=== PATIENT | female | born 1985 | race Caucasian/White ===

== ENCOUNTER 2020-11-25 14:09 | Emergency (ER) | payer OTHER, SELFPAY ==
[2020-11-25 14:22] VITALS: BP 91/37; PULSE 66; RESP 14; TEMP 36.3; O2SAT 96; BMI 21.0
--- NOTE | 2020-11-25 14:29 | XR_ITS ---
EXAMINATION: XR CHEST CLINICAL INFORMATION: Chest pain COMPARISON: Previous chest x-ray most recent December 2019 TECHNIQUE: Frontal view of the chest was obtained. FINDINGS: The cardiac and mediastinal contours are normal. The lungs are clear. There is no pleural effusion or pneumothorax. There are degenerative changes of the spine. XR/XR chest 1V IMPRESSION: Unremarkable examination.
--- NOTE | 2020-11-25 14:29 | ECG_ITS ---
Test Reason : CHEST PAIN Blood Pressure : / mmHG Vent. Rate : 060 BPM Atrial Rate : 060 BPM P-R Int : 152 ms QRS Dur : 086 ms QT Int : 462 ms P-R-T Axes : 061 081 063 degrees QTc Int : 462 ms Normal sinus rhythm Normal ECG When compared with ECG of 08-JAN-2020 10:40, Vent. rate has decreased BY 34 BPM Referred By: Mya Sapp Electronically Signed By:Singh Butler
--- NOTE | 2020-11-25 14:29 | ED.CHESTPAIN ---
HPI - Chest Pain General Chief Complaint: General Medical Stated Complaint: drug use Time Seen by Provider: 11/25/20 14:29 Source: patient and EMS Mode of arrival: EMS Limitations: no limitations History of Present Illness HPI narrative: 35 yo female became sleepy after using heroin with , no SI, has narcan at home c/o chest wall pain and cold / cough, no narcan needed easily woken complaint: chest discomfort Onset (ago): day(s) (few) Timing of current episode: episodic Prior episodes: No Onset: other (cough) Pain radiation: none Severity: mild Quality: tightness Relieving factors: nothing Exacerbating factors: other (cough) Context: recent illness Treatment prior to arrival: none Related Data Allergies Allergy/AdvReac Type Severity Reaction Status Date / Time codeine [CODEINE] Allergy Intermediate RASH Verified 11/25/20 14:32 quetiapine [From SEROQUEL] Allergy Intermediate RESTLESS Verified 11/25/20 14:32 LEG SYNDROME Review of Systems Review of Systems: Constitutional : No Fever, No Chills ENT/Mouth : No sore throat, No Rhinorrhea, No Swallowing Difficulty Eyes: No Eye Pain, No Swelling, No Redness Cardiovascular : No Chest Pain, positive SOB, No Orthopnea, noEdema Respiratory : pos Cough, No Sputum, No Wheezing, positive dyspnea Gastrointestinal : No Nausea, No Vomiting, No Diarrhea, No abdominal Pain, No Hematochezia, No Melena Genitourinary : No Dysuria, No Urinary Frequency, No Hematuria Musculoskeletal : No joint pain, No Myalgias Skin : No Skin Lesions, No rash Neuro : No Weakness, No Numbness, No Dizziness, No Headache Psych : No Anxiety/Panic, No Depression All other systems reviewed and are negative [facility] Past Medical History Attestation statement: The following information was validated with the patient. Medical History Asthma Hepatitis C Surgical History H/O: hysterectomy Social History Social History (Updated 11/25/20 @ 14:35 by Mya Sapp DO) Alcohol intake: never Smoking Status: Current every day smoker Smoked in Last 30 Days: Yes Use of substances other than those prescribed or required for medical reasons: Yes Substance Use Type: Heroin Advance Directives: No Advance Directives Information Provided: Yes Physical Exam Vital Signs: Vital Signs: Last Vital Signs Temp 97.3 F 11/25/20 14:22 Pulse 59 11/25/20 15:10 Resp 12 11/25/20 15:10 BP 92/40 L 11/25/20 15:10 Pulse Ox 96 11/25/20 15:10 Body Mass Index 21.0 Appearance: Alert. Oriented X3. No acute distress. Eyes: Pupils equal, round and reactive to light. ENT: Pharynx normal. Neck: Normal inspection. Neck supple. CVS: Normal heart rate and rhythm. Pulses normal. Respiratory: No respiratory distress. Breath sounds normal. Abdomen: Soft and nontender. Skin: Skin warm and dry. Normal skin color. Normal skin turgor. Extremities: No lower extremity edema. No calf ttp Neuro: Oriented X 3. No motor deficit. No sensory deficit. Course Course Course Narrative: easily woken no need for narcan carries narcan at home MDM - Chest Pain MDM Narrative Medical decision making narrative: 35 yo female with asthma used heroin no SI just recreational here with URI symptoms - at this time will obtain CXR, COVID swab, doubt ACS/PE pain is only when she coughs Lab Data Labs: Lab Results 11/25/20 Range/Units Unknown Coronavirus (PCR) NEGATIVE (Negative) Influenza Type A (PCR) NEGATIVE (Negative) Influenza Type B (PCR) NEGATIVE (Negative) RSV RNA Qual (PCR) NEGATIVE (Negative) Discharge Plan Discharge Clinical Impression: Opiate abuse, continuous Patient Disposition: Home, Self-Care Instructions: Opioid Use Disorder (ED) Additional Instructions: return to ED for any worsening symptoms or concerns stay with a responsible adult tonight
[2020-11-25 15:10] VITALS: BP 92/40; PULSE 59; RESP 12; O2SAT 96
[2020-11-25 15:41] LABS: Influenza A PCR NEGATIVE (Negative); Influenza B PCR NEGATIVE (Negative); Resp Syncy Virus RNA Qual PCR NEGATIVE (Negative); SARS COV2 PCR INHOUSE NEGATIVE (Negative)
[2020-11-25 16:57] VITALS: BP 88/40; PULSE 60; RESP 16; O2SAT 97
--- NOTE | 2020-11-25 16:59 | PC.NURSE ---
patient witnessed walking out of ED w/ steady gait, this RN approached patient to stay, pt states she is leaving, physician aware
== END 2020-11-25 17:01 | disposition left against medical advice (07) ==
PROVIDERS: Emergency Provider Emergency Medicine; PCP Family Medicine
DX: F11.10 Opioid abuse, uncomplicated (principal); R05 Cough; R07.9 Chest pain, unspecified; F17.200 Nicotine dependence, unspecified, uncomplicated; Z71.6 Tobacco abuse counseling; Z20.828 Contact with and (suspected) exposure to other viral communicable diseases
CPT/HCPCS: 0241U; 36415; 71045; 93005; 99283; 99284

== ENCOUNTER 2020-12-22 16:48 | Emergency (ER) | payer OTHER, SELFPAY ==
[2020-12-22 17:24] VITALS: BP 110/80; PULSE 105; PULSE 110; RESP 16; TEMP 36.6; O2SAT 97; BMI 20.3
--- NOTE | 2020-12-22 17:29 | XR_ITS ---
Examination: XR forearm LT 2V, XR hand wrist LT Indication: cellulitis? Osteomyelitis? Comparison: No pertinent prior studies are currently available for comparison. Technique: 2 views of the left forearm and 3 views of the left hand Findings: Bones are normal anatomic alignment. I do not appreciate any acute fracture or dislocation. No bony destructive lesions. No periosteal reaction. No acute fracture or dislocation. There is diffuse soft tissue swelling about the dorsal hand and wrist but no underlying radiopaque foreign body or soft tissue gas. XR/XR hand wrist LT Impression: Soft tissue swelling about the hand and wrist but no underlying bony abnormality or radiopaque foreign body.
--- NOTE | 2020-12-22 17:32 | XR_ITS ---
Examination: XR forearm LT 2V, XR hand wrist LT Indication: cellulitis? Osteomyelitis? Comparison: No pertinent prior studies are currently available for comparison. Technique: 2 views of the left forearm and 3 views of the left hand Findings: Bones are normal anatomic alignment. I do not appreciate any acute fracture or dislocation. No bony destructive lesions. No periosteal reaction. No acute fracture or dislocation. There is diffuse soft tissue swelling about the dorsal hand and wrist but no underlying radiopaque foreign body or soft tissue gas. XR/XR forearm LT 2V Impression: Soft tissue swelling about the hand and wrist but no underlying bony abnormality or radiopaque foreign body.
--- NOTE | 2020-12-22 17:33 | ED_ITS ---
HPI - Extremity Problem General Chief complaint: Extremity Problem <GREYSON Walsh - Last Filed: 12/22/20 17:34> Stated complaint: PHLEBITIS LT HAND <GREYSON Walsh Last Filed: 12/22/20 17:34> Time Seen by Provider: 12/22/20 17:29 <GREYSON Walsh Last Filed: 12/22/20 17:34> Source: patient <GREYSON House - Last Filed: 12/22/20 19:28> Mode of arrival: ambulatory <GREYSON House - Last Filed: 12/22/20 19:28> Limitations: no limitations <GREYSON House Last Filed: 12/22/20 19:28> History of Present Illness HPI Narrative: 35 y/o female with history of active IVDA who presenting with left dorsal hand swelling, redness and pain for the last 4 days. She last injected to the area 4 days ago. She reports low grade fevers at home. She has been injecting more due to the pain. She denies upper arm pain, chest pain, SOB, N/V. <GRESYON House - Last Filed: 12/22/20 19:28> MD Complaint: extremity pain and extremity swelling <GREYSON House Last Filed: 12/22/20 19:28> Onset (ago): day(s) (4) <GREYSON House - Last Filed: 12/22/20 19:28> Pain Consistency: constant <GREYSON House Last Filed: 12/22/20 19:28> Location: left and upper extremity <GREYSON House Last Filed: 12/22/20 19:28> Severity scale (1-10): 10 <GREYSON House Last Filed: 12/22/20 19:28> Quality: burning, aching and constant <GREYSON House Last Filed: 12/22/20 19:28> Radiation: none <GREYSON House Last Filed: 12/22/20 19:28> Relieving factors: cold therapy and elevation <GREYSON House Last Filed: 12/22/20 19:28> Exacerbating factors: range of motion and palpation <GREYSON House - Last Filed: 12/22/20 19:28> Associated symptoms: denies other symptoms <GREYSON House - Last Filed: 12/22/20 19:28> Context: other (IVDA) <GREYSON House - Last Filed: 12/22/20 19:28> Related Data Home medications: Previous Rx's Medication Instructions Recorded cephalexin 500 mg PO TID 10 Days #30 cap 12/22/20 doxycycline monohydrate 100 mg PO BID #14 cap 12/22/20 <GREYSON Walsh - Last Filed: 12/22/20 17:34> Allergies/Adverse reactions: Allergies Allergy/AdvReac Type Severity Reaction Status Date / Time codeine [CODEINE] Allergy Intermediate RASH Verified 11/25/20 14:32 quetiapine [From SEROQUEL] Allergy Intermediate RESTLESS Verified 11/25/20 14:32 LEG SYNDROME <GREYSON Walsh - Last Filed: 12/22/20 17:34> Review of Systems Review of Systems: Constitutional: + Fever (low grade), No Chills ENT/Mouth: No sore throat, No Rhinorrhea, No Swallowing Difficulty Cardiovascular: No Chest Pain, No SOB, No Orthopnea, + Edema (left hand) Respiratory: No Cough, No Sputum, No Wheezing, No dyspnea Gastrointestinal: No Nausea, No Vomiting, No Diarrhea, No abdominal Pain Musculoskeletal: No joint pain, No Myalgias Skin: + Skin Lesions, No rash Neuro: + Weakness (left hand ue to pain), No Numbness, No Dizziness, No Headache Psych: + Anxiety/Panic, + Depression, No SI Heme/Lymph: No Bruising, No Lymphadenopathy Endocrine: No Polyuria, No Polydipsia <GREYSON House - Last Filed: 12/22/20 19:28> [facility] Past Medical History Attestation statement: The following information was validated with the patient. <GREYSON House - Last Filed: 12/22/20 19:28> Medical History: Medical History Asthma Hepatitis C <GREYSON Walsh Last Filed: 12/22/20 17:34> Surgical History: Surgical History H/O: hysterectomy <GREYSON Walsh - Last Filed: 12/22/20 17:34> Social History Social History: Social History (Updated 11/25/20 @ 14:35 by Mya Sapp DO) Alcohol intake: never Smoking Status: Current every day smoker Substance Use Type: Heroin Advance Directives: No Advance Directives Information Provided: Yes <GREYSON Walsh - Last Filed: 12/22/20 17:34> Physical Exam Vital Signs: Vital Signs: Last Vital Signs Temp 98 F 12/22/20 17:24 Pulse 105 H 12/22/20 17:24 Resp 16 12/22/20 17:24 Pulse Ox 97 12/22/20 17:24 Body Mass Index 20.3 <GREYSON Walsh - Last Filed: 12/22/20 17:34> Vital Signs: Last Vital Signs Temp 98 F 12/22/20 17:24 Pulse 105 H 12/22/20 17:24 Resp 16 12/22/20 17:24 Pulse Ox 97 12/22/20 17:24 Body Mass Index 20.3 Appearance: Alert. Oriented X3. No acute distress. HEENT: normal inspection CVS: Normal heart rate and rhythm. Pulses normal. Respiratory: No respiratory distress. Skin: Skin warm and dry. Normal skin color. Normal skin turgor. No rashes. Extremities: left dorsal hand with erythema and diffuse tenderness, localized to area over carpals, no extension to wrist. mild finger swelling as well, NV intact distally, 2+ radial pulse. areas of prior injection sites noted Neuro: Oriented X 3. No motor deficit. No sensory deficit. Left hand grasp is weak due to pain <GREYSON House - Last Filed: 12/22/20 19:28> Course Course Course Narrative: 35 yold female presents to the ED for left hand swelling and redness after IV drug use. Rapid medical screening will be done. History, physical exam, and decision making will be done by ED provider. <GREYSON Walsh - Last Filed: 12/22/20 17:34> left hand cellulitis - labs show WBC 12.7. No fevers here. XR are unremarkable. US is pending to r/o DVT. Ordered Keflex and Doxycycline now, high risk for MRSA. <GREYSON House - Last Filed: 12/22/20 19:28> Reevaluation(s) Reevaluation #1: Patient unwilling to stay for ultrasound. She is wanting to leave against medical advise. Discussed medical complications and seriousness of her infection and addition. Declining to speak with a assistant womens volleyball coach. Encouraged to come back to the ER in 2 days for a re-evaluation. Abx sent to her pharmacy. Leaving AMA, understands the risks. <GREYSON House - Last Filed: 12/22/20 19:28> MDM - Extremity (Nontraumatic) Lab Data Result diagrams: : 12/22/20 17:41 12/22/20 17:41 <GREYSON Walsh - Last Filed: 12/22/20 17:34> Labs: Lab Results 12/22/20 12/22/20 12/22/20 Range/Units 17:41 17:41 17:41 WBC 12.7 H (4.8-10.8) X10*3/uL RBC 4.62 (4.20-5.50) X10*6/uL Hgb 13.2 (12.0-16.0) g/dl Hct 40.0 (37-47) % MCV 86.6 (80-98) fL MCH 28.6 (27.0-33.0) pg MCHC 33.0 (31.0-35.0) g/dl RDW 13.3 (11.0-16.0) % Plt Count 222 (160-400) X10*3/uL MPV Not Reportable Immature Gran % (Auto) 0.3 (0.0-0.4) % Neut % (Auto) 80.0 H (45-73) % Lymph % (Auto) 12.9 L (20-40) % [place] % (Auto) 5.4 (2-11) % Eos % (Auto) 1.1 (0-4) % Baso % (Auto) 0.3 (0-2) % Lymph # (Auto) 1.6 (1.2-4.9) X10*3/uL [place] # (Auto) 0.7 (0.1-1.2) X10*3/uL Eos # (Auto) 0.1 (0.0-0.4) X10*3/uL Baso # (Auto) 0.0 (0.0-0.2) X10*3/uL Abs Immat Gran (auto) 0.04 H (0.00-0.03) X10*3/uL Absolute Neuts (auto) 10.1 H (2.0-8.3) X10*3/uL Absolute Nucleated RBC 0.000 (0.0-0.012) X10*3/uL Nucleated RBC % (auto) 0.0 (0.0-0.2) /100WBC Smear Tech's Comments VERIFIED PT 13.0 (10.8-13.0) SEC INR 1.1 (0.9-1.1) APTT 27.7 (24.1-38.0) SEC Sodium 137 (135-145) mmol/L Potassium 4.3 (3.3-5.1) mmol/L Chloride 101 (96-108) mmol/L Carbon Dioxide 27 (22-29) mmol/L Anion Gap 13 (12-20) BUN 25 H (9-16) mg/dL Creatinine 0.70 (0.5-1.4) mg/dL Estim Creat Clear Calc 90.6 Estimated GFR > 60 Random Glucose 75 (60-115) mg/dL Lactic Acid (0.5-2.0) mmol/L Calcium 8.6 (8.4-10.2) mg/dL Total Bilirubin 0.2 (0.0-1.0) mg/dL AST 31 (5-31) U/L ALT 18 (0-31) U/L Alkaline Phosphatase 73 (39-117) U/L Total Protein 7.5 (6.5-8.0) g/dL Albumin 4.1 (3.5-5.0) g/dL 12/22/20 Range/Units 17:41 WBC (4.8-10.8) X10*3/uL RBC (4.20-5.50) X10*6/uL Hgb (12.0-16.0) g/dl Hct (37-47) % MCV (80-98) fL MCH (27.0-33.0) pg MCHC (31.0-35.0) g/dl RDW (11.0-16.0) % Plt Count (160-400) X10*3/uL MPV Immature Gran % (Auto) (0.0-0.4) % Neut % (Auto) (45-73) % Lymph % (Auto) (20-40) % [place] % (Auto) (2-11) % Eos % (Auto) (0-4) % Baso % (Auto) (0-2) % Lymph # (Auto) (1.2-4.9) X10*3/uL [place] # (Auto) (0.1-1.2) X10*3/uL Eos # (Auto) (0.0-0.4) X10*3/uL Baso # (Auto) (0.0-0.2) X10*3/uL Abs Immat Gran (auto) (0.00-0.03) X10*3/uL Absolute Neuts (auto) (2.0-8.3) X10*3/uL Absolute Nucleated RBC (0.0-0.012) X10*3/uL Nucleated RBC % (auto) (0.0-0.2) /100WBC Smear Tech's Comments PT (10.8-13.0) SEC INR (0.9-1.1) APTT (24.1-38.0) SEC Sodium (135-145) mmol/L Potassium (3.3-5.1) mmol/L Chloride (96-108) mmol/L Carbon Dioxide (22-29) mmol/L Anion Gap (12-20) BUN (9-16) mg/dL Creatinine (0.5-1.4) mg/dL Estim Creat Clear Calc Estimated GFR Random Glucose (60-115) mg/dL Lactic Acid 0.5 (0.5-2.0) mmol/L Calcium (8.4-10.2) mg/dL Total Bilirubin (0.0-1.0) mg/dL AST (5-31) U/L ALT (0-31) U/L Alkaline Phosphatase (39-117) U/L Total Protein (6.5-8.0) g/dL Albumin (3.5-5.0) g/dL <GREYSON Walsh - Last Filed: 12/22/20 17:34> Lab Results 12/22/20 12/22/20 12/22/20 Range/Units 17:41 17:41 17:41 WBC 12.7 H (4.8-10.8) X10*3/uL RBC 4.62 (4.20-5.50) X10*6/uL Hgb 13.2 (12.0-16.0) g/dl Hct 40.0 (37-47) % MCV 86.6 (80-98) fL MCH 28.6 (27.0-33.0) pg MCHC 33.0 (31.0-35.0) g/dl RDW 13.3 (11.0-16.0) % Plt Count 222 (160-400) X10*3/uL MPV Not Reportable Immature Gran % (Auto) 0.3 (0.0-0.4) % Neut % (Auto) 80.0 H (45-73) % Lymph % (Auto) 12.9 L (20-40) % [place] % (Auto) 5.4 (2-11) % Eos % (Auto) 1.1 (0-4) % Baso % (Auto) 0.3 (0-2) % Lymph # (Auto) 1.6 (1.2-4.9) X10*3/uL [place] # (Auto) 0.7 (0.1-1.2) X10*3/uL Eos # (Auto) 0.1 (0.0-0.4) X10*3/uL Baso # (Auto) 0.0 (0.0-0.2) X10*3/uL Abs Immat Gran (auto) 0.04 H (0.00-0.03) X10*3/uL Absolute Neuts (auto) 10.1 H (2.0-8.3) X10*3/uL Absolute Nucleated RBC 0.000 (0.0-0.012) X10*3/uL Nucleated RBC % (auto) 0.0 (0.0-0.2) /100WBC Smear Tech's Comments VERIFIED PT 13.0 (10.8-13.0) SEC INR 1.1 (0.9-1.1) APTT 27.7 (24.1-38.0) SEC Sodium 137 (135-145) mmol/L Potassium 4.3 (3.3-5.1) mmol/L Chloride 101 (96-108) mmol/L Carbon Dioxide 27 (22-29) mmol/L Anion Gap 13 (12-20) BUN 25 H (9-16) mg/dL Creatinine 0.70 (0.5-1.4) mg/dL Estim Creat Clear Calc 90.6 Estimated GFR > 60 Random Glucose 75 (60-115) mg/dL Lactic Acid (0.5-2.0) mmol/L Calcium 8.6 (8.4-10.2) mg/dL Total Bilirubin 0.2 (0.0-1.0) mg/dL AST 31 (5-31) U/L ALT 18 (0-31) U/L Alkaline Phosphatase 73 (39-117) U/L Total Protein 7.5 (6.5-8.0) g/dL Albumin 4.1 (3.5-5.0) g/dL 12/22/20 Range/Units 17:41 WBC (4.8-10.8) X10*3/uL RBC (4.20-5.50) X10*6/uL Hgb (12.0-16.0) g/dl Hct (37-47) % MCV (80-98) fL MCH (27.0-33.0) pg MCHC (31.0-35.0) g/dl RDW (11.0-16.0) % Plt Count (160-400) X10*3/uL MPV Immature Gran % (Auto) (0.0-0.4) % Neut % (Auto) (45-73) % Lymph % (Auto) (20-40) % [place] % (Auto) (2-11) % Eos % (Auto) (0-4) % Baso % (Auto) (0-2) % Lymph # (Auto) (1.2-4.9) X10*3/uL [place] # (Auto) (0.1-1.2) X10*3/uL Eos # (Auto) (0.0-0.4) X10*3/uL Baso # (Auto) (0.0-0.2) X10*3/uL Abs Immat Gran (auto) (0.00-0.03) X10*3/uL Absolute Neuts (auto) (2.0-8.3) X10*3/uL Absolute Nucleated RBC (0.0-0.012) X10*3/uL Nucleated RBC % (auto) (0.0-0.2) /100WBC Smear Tech's Comments PT (10.8-13.0) SEC INR (0.9-1.1) APTT (24.1-38.0) SEC Sodium (135-145) mmol/L Potassium (3.3-5.1) mmol/L Chloride (96-108) mmol/L Carbon Dioxide (22-29) mmol/L Anion Gap (12-20) BUN (9-16) mg/dL Creatinine (0.5-1.4) mg/dL Estim Creat Clear Calc Estimated GFR Random Glucose (60-115) mg/dL Lactic Acid 0.5 (0.5-2.0) mmol/L Calcium (8.4-10.2) mg/dL Total Bilirubin (0.0-1.0) mg/dL AST (5-31) U/L ALT (0-31) U/L Alkaline Phosphatase (39-117) U/L Total Protein (6.5-8.0) g/dL Albumin (3.5-5.0) g/dL <GREYSON House - Last Filed: 12/22/20 19:28> Discharge Plan Discharge Clinical Impression: Cellulitis Qualifiers: Site of cellulitis: extremity Site of cellulitis of extremity: upper extremity Laterality: left Qualified Code(s): L03.114 - Cellulitis of left upper limb <GREYSON Walsh - Last Filed: 12/22/20 17:34> Patient Disposition: Left Against Medical Advice <GREYSON Walsh - Last Filed: 12/22/20 17:34> Instructions: Cellulitis (ED) <GREYSON Walsh - Last Filed: 12/22/20 17:34> Additional Instructions: You have an infection of your skin due to IV drug use. It is recommended to you stay in the hospital for ultrasound to look for blood clot, however you are leaving against medical advise. You are at risk for due to your condition. Do NOT inject IV DRUGS. IT CAN KILL YOU. Take the prescribed antibiotics as directed. Recommend coming back to the ER in 2 days to reassess the infection. Recommend detox. If you have worsening pain, swelling, redness or develop fevers come back to the ER for further evaluation. <GREYSON Walsh - Last Filed: 12/22/20 17:34> Prescriptions: New doxycycline monohydrate 100 mg capsule 100 mg PO BID Qty: 14 RF: 0 cephalexin 500 mg capsule 500 mg PO TID 10 Days Qty: 30 RF: 0 <GREYSON Walsh - Last Filed: 12/22/20 17:34>
[2020-12-22 17:54] LABS: Basophils Percent Auto 0.3 % (0-2); Eosinophils Absolute Auto 0.1 X10*3/uL (0.0-0.4); Eosinophils Percent Auto 1.1 % (0-4); Hemoglobin 13.2 g/dl (12.0-16.0); Lymphocytes Absolute Auto 1.6 X10*3/uL (1.2-4.9); MANUAL DIFF FLAG SCAN; Mean Corpuscular Hemoglobin 28.6 pg (27.0-33.0); Monocytes Absolute Auto 0.7 X10*3/uL (0.1-1.2); PLT CLUMP 1; Red Blood Count 4.62 X10*6/uL (4.20-5.50); SCAN SMEAR FLAG 1
[2020-12-22 17:56] LABS: Imm Gran Abs Auto 0.04 X10*3/uL (0.00-0.03); Imm Gran Pct Auto 0.3 % (0.0-0.4); Lymphocytes Percent Auto 12.9 % (20-40); Mean Corpuscular Volume 86.6 fL (80-98); Monocytes Percent Auto 5.4 % (2-11); Neutrophils Absolute Auto 10.1 X10*3/uL (2.0-8.3); Red Cell Distribution Width 13.3 % (11.0-16.0); White Blood Count 12.7 X10*3/uL (4.8-10.8)
[2020-12-22 18:00] LABS: INTERNATIONAL NORM RATIO 1.1 (0.9-1.1)
[2020-12-22 18:02] LABS: Partial Thromboplastin Time 27.7 SEC (24.1-38.0)
[2020-12-22 18:16] LABS: Platelet Count 222 X10*3/uL (160-400)
[2020-12-22 18:17] LABS: SLIDE REVIEW VERIFIED
[2020-12-22 18:18] LABS: Lactic Acid 0.5 mmol/L (0.5-2.0)
[2020-12-22 18:26] LABS: Alanine Aminotransferase 18 U/L (0-31); Albumin Level 4.1 g/dL (3.5-5.0); Alkaline Phosphatase 73 U/L (39-117); Anion Gap 13 (12-20); Aspartate Amino Transferase 31 U/L (5-31); Bilirubin Total 0.2 mg/dL (0.0-1.0); Blood Urea Nitrogen 25 mg/dL (9-16); Calcium 8.6 mg/dL (8.4-10.2); Carbon Dioxide 27 mmol/L (22-29); Chloride 101 mmol/L (96-108); Creatinine Clr Calc Pharmacy 90.6; Estimated Glomerular Filt Rate > 60; Glucose Random 75 mg/dL (60-115); Potassium 4.3 mmol/L (3.3-5.1); Sodium 137 mmol/L (135-145); Total Protein 7.5 g/dL (6.5-8.0)
[2020-12-22] MEDS: Ketorolac Tromethamine 30 MG/ML VIAL IM (19:13)
[2020-12-22] MEDS: cephALEXin 500 MG CAPSULE PO (19:14)
--- NOTE | 2020-12-22 19:27 | PC.NURSE ---
PT REFUSING ULTRASOUND. RISKS AND BENIFITS EXPLAINED. PT WANTING TO SIGN OUT AMA. PROVIDER AWARE.
[2020-12-22 19:33] VITALS: BP 132/71; PULSE 94; RESP 16; TEMP 36.4; O2SAT 98
== END 2020-12-22 19:36 | disposition left against medical advice (07) ==
PROVIDERS: Physician Assistant; Emergency Provider Emergency Medicine
DX: L03.114 Cellulitis of left upper limb (principal); M79.642 Pain in left hand; F19.10 Other psychoactive substance abuse, uncomplicated; F17.200 Nicotine dependence, unspecified, uncomplicated
CPT/HCPCS: 36415; 73090; 73110; 73130; 80053; 83605; 85025; 85610; 85730; 87040; 96372; 99284; J1885

== ENCOUNTER 2021-07-03 04:17 | Emergency (ER) | payer OTHER, SELFPAY ==
[2021-07-03 04:20] VITALS: BP 100/59; PULSE 69; RESP 15; TEMP 36.9; O2SAT 98; BMI 23.9
[2021-07-03 04:34] VITALS: BP 100/59; PULSE 69; RESP 15; TEMP 36.9; O2SAT 98
[2021-07-03 04:50] LABS: Glucose Urine UA NEG (NEG); Leukocyte Esterase Urine NEG (NEG); Nitrite Urine NEG (NEG); UACC Culture Trigger NO; Urine Blood NEG (NEG); Urine Ketones NEG (NEG); Urine Protein 1+ MG/DL (NEG-TRACE)
[2021-07-03 04:53] LABS: Appearance Urine HAZY; Color Urine DARK YELLOW
--- NOTE | 2021-07-03 04:58 | PC.NURSE ---
[facility] referral completed via smart sheet, called and spoke with Emma, confirmed receipt of referral.
[2021-07-03 05:02] LABS: COVID-19 Test Negative (Negative)
[2021-07-03 05:12] LABS: Amorphous Sediment Urine 3+ /LPF; Amphetamine Screen Urine Not Detected (Not Detect); Barbiturates, Urine Not Detected (Not Detect); Benzodiazepines Screen Urine Not Detected (Not Detect); Cannabinoid Screen Urine Not Detected (Not Detect); Cocaine Screen Urine POSITIVE (Not Detect); Fentanyl, urine POSITIVE (Not Detect); Mucus Urine 4+ /LPF; Opiate Screen Urine POSITIVE (Not Detect); Phencyclidine Screen Urine Not Detected (Not Detect); RBC Urine 0-2 /HPF (0); Squamous Epithelial Cell Urine 1+ /LPF; WBC Urine 0 /HPF (0-4)
[2021-07-03 05:13] LABS: UPreg QC Valid YES; Urine Pregnancy NEGATIVE (NEGATIVE)
--- NOTE | 2021-07-03 06:17 | PC.NURSE ---
Patient slept well, not seen by provider yet, [facility] referral completed, patient will be seen in the morning, no distress observed/reported, patient has multiple red julien on her body perhaps from IV use, VSS, Patient is on Methadon and uses [facility] clinic, attempted to reach, clinic opens at 0800 on Monday, will continue to monitor.
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
--- NOTE | 2021-07-03 06:57 | PC.NURSE ---
patient appears to continue to rest at present, respirations even and unlabored.
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
== END 2021-07-03 14:06 | disposition home or self-care (01) ==
PROVIDERS: Emergency Provider Emergency Medicine
DX: F32.9 Major depressive disorder, single episode, unspecified (principal); F41.9 Anxiety disorder, unspecified; Z20.822 Contact with and (suspected) exposure to COVID-19; F11.20 Opioid dependence, uncomplicated; Z72.89 Other problems related to lifestyle; Z63.0 Problems in relationship with spouse or partner; Z79.899 Other long term (current) drug therapy
CPT/HCPCS: 36415; 80307; 81001; 81025; 87635; 99284

== ENCOUNTER 2021-09-24 00:41 | Emergency (ER) | payer OTHER, SELFPAY ==
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
[2021-09-24 01:02] VITALS: BP 170/90; PULSE 106
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
== END 2021-09-24 01:02 | disposition left against medical advice (07) ==
PROVIDERS: Emergency Provider Internal Medicine; PCP Family Medicine
DX: S00.86XA Insect bite (nonvenomous) of other part of head, initial encounter (principal); W57.XXXA Bitten or stung by nonvenomous insect and other nonvenomous arthropods, initial encounter; R21 Rash and other nonspecific skin eruption; B19.20 Unspecified viral hepatitis C without hepatic coma; Y93.89 Activity, other specified; Y92.009 Unspecified place in unspecified non-institutional (private) residence as the place of occurrence of the external cause; Y99.9 Unspecified external cause status
CPT/HCPCS: 99281

== ENCOUNTER 2021-12-16 00:04 | Inpatient (IN) | payer OTHER, SELFPAY ==
--- NOTE | 2021-12-16 00:10 | ED.PSYCH ---
HPI - Psych General Chief Complaint: Anxiety <Ric Ulloa MD - Last Filed: 12/16/21 06:14> Stated Complaint: anxiety <Ric Ulloa MD - Last Filed: 12/16/21 06:14> Time Seen by Provider: 12/16/21 00:10 <Ric Ulloa MD - Last Filed: 12/16/21 06:14> Source: patient <Ric Ulloa MD - Last Filed: 12/16/21 06:14> Mode of arrival: EMS <Ric Ulloa MD - Last Filed: 12/16/21 06:14> Limitations: no limitations <Ric Ulloa MD - Last Filed: 12/16/21 06:14> History of Present Illness HPI Narrative: Patient with bipolar depression and PTSD. She is confused about reality and thinking that friends and family would be better without her. Patient is currently using heroine. <Ric Ulloa MD - Last Filed: 12/16/21 06:14> MD complaint: feels depressed and anxiety <Ric Ulloa MD - Last Filed: 12/16/21 06:14> Onset (ago): week(s) <Ric Ulloa MD - Last Filed: 12/16/21 06:14> Duration: constant <Ric Ulloa MD - Last Filed: 12/16/21 06:14> History of same: Yes <Ric Ulloa MD - Last Filed: 12/16/21 06:14> Context: recent alcohol abuse and recent drug abuse <Ric Ulloa MD - Last Filed: 12/16/21 06:14> Associated psychiatric symptoms: depression, racing thoughts and delusions <Ric Ulloa MD - Last Filed: 12/16/21 06:14> Associated symptoms: confusion <Ric Ulloa MD - Last Filed: 12/16/21 06:14> Related Data Home Medications: Home Medications Medication Instructions Recorded Confirmed methadone 5 mg tablet 91 mg PO DAILY 12/16/21 12/16/21 trazodone 150 mg tablet 1 tab PO BEDTIME 12/16/21 12/16/21 ziprasidone HCl 40 mg capsule 1 cap PO BEDTIME 12/16/21 12/16/21 <Ric Ulloa MD - Last Filed: 12/16/21 06:14> Allergies/Adverse Reactions: Allergies Allergy/AdvReac Type Severity Reaction Status Date / Time codeine [CODEINE] Allergy Intermediate RASH Verified 11/25/20 14:32 quetiapine [From SEROQUEL] Allergy Intermediate RESTLESS Verified 11/25/20 14:32 LEG SYNDROME <Ric Ulloa MD - Last Filed: 12/16/21 06:14> Review of Systems Constitutional: Constitutional: Reports no additional constitutional complaints <Ric Ulloa MD - Last Filed: 12/16/21 06:14> Eyes: Eyes: Reports no additional eye complaints <Ric Ulloa MD - Last Filed: 12/16/21 06:14> ENT: Denies dizziness <Ric Ulloa MD - Last Filed: 12/16/21 06:14> Cardiovascular: Cardiovascular: Reports no additional cardiovascular complaints <Ric Ulloa MD - Last Filed: 12/16/21 06:14> Respiratory: Respiratory: Reports as per HPI <Ric Ulloa MD - Last Filed: 12/16/21 06:14> Gastrointestinal: Gastrointestinal: Reports no additional gastrointestinal complaints <Ric Ulloa MD - Last Filed: 12/16/21 06:14> Genitourinary: Genitourinary: Reports no additional female genitourinary complaints <Ric Ulloa MD - Last Filed: 12/16/21 06:14> Musculoskeletal: Musculoskeletal: Reports no additional musculoskeletal complaints <Ric Ulloa MD - Last Filed: 12/16/21 06:14> Integumentary/Breasts: Skin/Breast: Denies rash <Ric Ulloa MD - Last Filed: 12/16/21 06:14> Neurologic: Reports system reviewed and no additional complaints, except as documented, Denies dizziness and Denies Sensory deficit (Neuro) <Ric Ulloa MD - Last Filed: 12/16/21 06:14> Psychiatric: Psychiatric: Denies anxiety <Ric Ulloa MD - Last Filed: 12/16/21 06:14> PMFSH Past Medical History Medical History: Medical History Asthma Hepatitis C <Ric Ulloa MD - Last Filed: 12/16/21 06:14> Surgical History: Surgical History H/O: hysterectomy <Ric Ulloa MD - Last Filed: 12/16/21 06:14> Social History Social History: Social History Alcohol intake: never Substance Use Type: Heroin Advance Directives: No <Ric Ulloa MD - Last Filed: 12/16/21 06:14> Physical Exam Vital Signs: Vital Signs: Last Vital Signs Temp 98.2 F 12/16/21 07:53 Pulse 72 12/16/21 07:53 Resp 14 12/16/21 07:53 BP 112/63 12/16/21 07:53 Pulse Ox 98 12/16/21 07:53 BMI result Body Mass Index 23.0 <Ric Ulloa MD - Last Filed: 12/16/21 06:14> Vital Signs: Last Vital Signs Temp 98.2 F 12/16/21 07:53 Pulse 72 12/16/21 07:53 Resp 14 12/16/21 07:53 BP 112/63 12/16/21 07:53 Pulse Ox 98 12/16/21 07:53 BMI result Body Mass Index 23.0 <Daylin Epps MD - Last Filed: 12/16/21 10:11> Vital Signs: Last Vital Signs Temp 98.2 F 12/16/21 07:53 Pulse 72 12/16/21 07:53 Resp 14 12/16/21 07:53 BP 112/63 12/16/21 07:53 Pulse Ox 98 12/16/21 07:53 BMI result Body Mass Index 23.0 <GREYSON House - Last Filed: 12/16/21 10:52> Const: Other: female looking older than stated age <Ric Ulloa MD - Last Filed: 12/16/21 06:14> Nutritional Appearance: average body habitus <Ric Ulloa MD - Last Filed: 12/16/21 06:14> Orientation/consciousness: oriented to person and patient oriented x3 <Ric Ulloa MD - Last Filed: 12/16/21 06:14> Limitations: no limitations <Ric Ulloa MD - Last Filed: 12/16/21 06:14> HENMT: Head: Yes normal to inspection <Ric Ulloa MD - Last Filed: 12/16/21 06:14> Ears: external ears normal <Ric Ulloa MD - Last Filed: 12/16/21 06:14> General nose exam: Normal external nose present <Ric Ulloa MD - Last Filed: 12/16/21 06:14> Mouth: Normal oral and palatal mucosa present and oropharynx normal <Ric Ulloa MD - Last Filed: 12/16/21 06:14> Throat: Yes posterior oropharynx normal <Ric Ulloa MD - Last Filed: 12/16/21 06:14> Eyes: General: appearance normal, both eyes and all related structures <Ric Ulloa MD - Last Filed: 12/16/21 06:14> Neck: Other: supple <Ric Ulloa MD - Last Filed: 12/16/21 06:14> Neck: Yes normal visual inspection <Ric Ulloa MD - Last Filed: 12/16/21 06:14> Chest: Chest palpation & inspection: normal inspection of the chest <Ric Ulloa MD - Last Filed: 12/16/21 06:14> Resp: Auscultation: clear to auscultation bilaterally <Ric Ulloa MD - Last Filed: 12/16/21 06:14> Cardio: Jugular venous distension: no JVD <Ric Ulloa MD - Last Filed: 12/16/21 06:14> Rate: regular rate <Ric Ulloa MD - Last Filed: 12/16/21 06:14> Rhythm: regular rhythm <Ric Ulloa MD - Last Filed: 12/16/21 06:14> Heart sounds: S1 normal heart sound present and S2 normal heart sound present <Ric Ulloa MD - Last Filed: 12/16/21 06:14> GI: Inspection: Yes normal to inspection <Ric Ulloa MD - Last Filed: 12/16/21 06:14> Palpation (GI): Soft to palpation, nontender and No hepatosplenomegaly present <Ric Ulloa MD - Last Filed: 12/16/21 06:14> Auscultation: normal bowel sounds <Ric Ulloa MD - Last Filed: 12/16/21 06:14> : General: Yes no CVA tenderness <Ric Ulloa MD - Last Filed: 12/16/21 06:14> Back/Spine/Pelvis: Back: no CVA tenderness <Ric Ulloa MD - Last Filed: 12/16/21 06:14> Skin: Other: track julien <Ric Ulloa MD - Last Filed: 12/16/21 06:14> Neuro: General: oriented to person and patient oriented x3 <Ric Ulloa MD - Last Filed: 12/16/21 06:14> Cranial nerves: Yes CN's II-XII intact bilaterally <Ric Ulloa MD - Last Filed: 12/16/21 06:14> Motor exam (neuro): 5/5 motor strength present throughout <Ric Ulloa MD - Last Filed: 12/16/21 06:14> Sensory Exam: No Sensory deficit (Neuro) <Ric Ulloa MD - Last Filed: 12/16/21 06:14> Extrem: General: Yes normal to inspection <Ric Ulloa MD - Last Filed: 12/16/21 06:14> Psych: Other: anxious and tearful <Ric Ulloa MD - Last Filed: 12/16/21 06:14> Course Course Course Narrative: 07:51, the patient's methadone dose was confirmed, patient is a 91 mg, 1st dose given this morning 10:10 am , [facility]. Patient is fairly decompensated, still having suicidal ideation. Very disorganized. At this time, inpatient bed search is advised. Patient is voluntary, at this time patient is not under [place] <Daylin Epps MD - Last Filed: 12/16/21 10:11> Reevaluation(s) Reevaluation #1: Patient placed in physician observation at 6am The indication for observation is that the patient needs more time to see if her depression improves or she will need to be admitted. At this time the patient is well developed well nourished, lungs clear, CV RRR, abd nontender, neuro is intact <Ric Ulloa MD - Last Filed: 12/16/21 06:14> Time: 06:14 <Ric Ulloa MD - Last Filed: 12/16/21 06:14> Reevaluation #2: Physician observation discontinued at this time. To be admitted to for further psychiatric care. <GREYSON House - Last Filed: 12/16/21 10:52> Time: 10:52 <GREYSON [facility] - Last Filed: 12/16/21 10:52> MDM - Psych Lab Data Result diagrams: : 12/16/21 00:52 12/16/21 00:52 <Ric Ulloa MD - Last Filed: 12/16/21 06:14> Labs: Lab Results 12/16/21 12/16/21 12/16/21 Range/Units 00:31 00:31 00:42 WBC (4.8-10.8) X10*3/uL RBC (4.20-5.50) X10*6/uL Hgb (12.0-16.0) g/dl Hct (37.0-47.0) % MCV (80.0-98.0) fL MCH (27.0-33.0) pg MCHC (31.0-35.0) g/dl RDW (11.0-16.0) % Plt Count (160-400) X10*3/uL MPV (9.4-12.3) fL Immature Gran % (Auto) (0.0-0.4) % Neut % (Auto) (45-73) % Lymph % (Auto) (20-40) % [place] % (Auto) (2-11) % Eos % (Auto) (0-4) % Baso % (Auto) (0-2) % Lymph # (Auto) (1.2-4.9) X10*3/uL [place] # (Auto) (0.1-1.2) X10*3/uL Eos # (Auto) (0.0-0.4) X10*3/uL Baso # (Auto) (0.0-0.2) X10*3/uL Abs Immat Gran (auto) (0.00-0.03) X10*3/uL Absolute Neuts (auto) (2.0-8.3) x10*3/uL Absolute Nucleated RBC (0.0-0.012) X10*3/uL Nucleated RBC % (auto) (0.0-0.2) /100WBC Sodium (135-145) mmol/L Potassium (3.3-5.1) mmol/L Chloride (96-108) mmol/L Carbon Dioxide (22-29) mmol/L Anion Gap (12-20) BUN (9-16) mg/dL Creatinine (0.5-1.4) mg/dL Estim Creat Clear Calc Estimated GFR Random Glucose (60-115) mg/dL Calcium (8.4-10.2) mg/dL Urine Color Urine Appearance Urine pH (5.0-8.0) Ur Specific [place] (1.005-1.025) Urine Protein (NEG-TRACE) MG/DL Urine Glucose (UA) (NEG) MG/DL Urine Ketones (NEG) MG/DL Urine Blood (NEG) Urine Nitrite (NEG) Ur Leukocyte Esterase (NEG) Urine Test NEGATIVE (NEGATIVE) Urine Opiates Screen POSITIVE H (Not Detect) Urine Fentanyl Screen POSITIVE H (Not Detect) Ur Barbiturates Screen Not Detected (Not Detect) Ur Phencyclidine Scrn Not Detected (Not Detect) Ur Amphetamines Screen Not Detected (Not Detect) U Benzodiazepines Scrn Not Detected (Not Detect) Urine Cocaine Screen POSITIVE H (Not Detect) U Marijuana (THC) Screen POSITIVE H (Not Detect) Ethyl Alcohol mg/dL COVID-19 ([facility]) Negative (Negative) COVID-19 Clin Com See Note 12/16/21 12/16/21 12/16/21 Range/Units 00:42 00:52 00:52 WBC 5.3 (4.8-10.8) X10*3/uL RBC 4.87 (4.20-5.50) X10*6/uL Hgb 13.6 (12.0-16.0) g/dl Hct 40.7 (37.0-47.0) % MCV 83.6 (80.0-98.0) fL MCH 27.9 (27.0-33.0) pg MCHC 33.4 (31.0-35.0) g/dl RDW 13.2 (11.0-16.0) % Plt Count 194 (160-400) X10*3/uL MPV 9.2 L (9.4-12.3) fL Immature Gran % (Auto) 0.2 (0.0-0.4) % Neut % (Auto) 58.2 (45-73) % Lymph % (Auto) 34.6 (20-40) % [place] % (Auto) 6.2 (2-11) % Eos % (Auto) 0.4 (0-4) % Baso % (Auto) 0.4 (0-2) % Lymph # (Auto) 1.8 (1.2-4.9) X10*3/uL [place] # (Auto) 0.3 (0.1-1.2) X10*3/uL Eos # (Auto) 0.0 (0.0-0.4) X10*3/uL Baso # (Auto) 0.0 (0.0-0.2) X10*3/uL Abs Immat Gran (auto) 0.01 (0.00-0.03) X10*3/uL Absolute Neuts (auto) 3.1 (2.0-8.3) x10*3/uL Absolute Nucleated RBC 0.000 (0.0-0.012) X10*3/uL Nucleated RBC % (auto) 0.0 (0.0-0.2) /100WBC Sodium 137 (135-145) mmol/L Potassium 3.4 D (3.3-5.1) mmol/L Chloride 106 (96-108) mmol/L Carbon Dioxide 24 (22-29) mmol/L Anion Gap 10 L (12-20) BUN 14 (9-16) mg/dL Creatinine 0.75 (0.5-1.4) mg/dL Estim Creat Clear Calc 84.1 Estimated GFR > 60 Random Glucose 105 (60-115) mg/dL Calcium 9.1 (8.4-10.2) mg/dL Urine Color YELLOW Urine Appearance HAZY Urine pH 6.5 (5.0-8.0) Ur Specific [place] 1.025 (1.005-1.025) Urine Protein NEG (NEG-TRACE) MG/DL Urine Glucose (UA) NEG (NEG) MG/DL Urine Ketones 15 (NEG) MG/DL Urine Blood NEG (NEG) Urine Nitrite NEG (NEG) Ur Leukocyte Esterase NEG (NEG) Urine Test (NEGATIVE) Urine Opiates Screen (Not Detect) Urine Fentanyl Screen (Not Detect) Ur Barbiturates Screen (Not Detect) Ur Phencyclidine Scrn (Not Detect) Ur Amphetamines Screen (Not Detect) U Benzodiazepines Scrn (Not Detect) Urine Cocaine Screen (Not Detect) U Marijuana (THC) Screen (Not Detect) Ethyl Alcohol mg/dL COVID-19 ([facility]) (Negative) COVID-19 Clin Com 12/16/21 Range/Units 00:52 WBC (4.8-10.8) X10*3/uL RBC (4.20-5.50) X10*6/uL Hgb (12.0-16.0) g/dl Hct (37.0-47.0) % MCV (80.0-98.0) fL MCH (27.0-33.0) pg MCHC (31.0-35.0) g/dl RDW (11.0-16.0) % Plt Count (160-400) X10*3/uL MPV (9.4-12.3) fL Immature Gran % (Auto) (0.0-0.4) % Neut % (Auto) (45-73) % Lymph % (Auto) (20-40) % [place] % (Auto) (2-11) % Eos % (Auto) (0-4) % Baso % (Auto) (0-2) % Lymph # (Auto) (1.2-4.9) X10*3/uL [place] # (Auto) (0.1-1.2) X10*3/uL Eos # (Auto) (0.0-0.4) X10*3/uL Baso # (Auto) (0.0-0.2) X10*3/uL Abs Immat Gran (auto) (0.00-0.03) X10*3/uL Absolute Neuts (auto) (2.0-8.3) x10*3/uL Absolute Nucleated RBC (0.0-0.012) X10*3/uL Nucleated RBC % (auto) (0.0-0.2) /100WBC Sodium (135-145) mmol/L Potassium (3.3-5.1) mmol/L Chloride (96-108) mmol/L Carbon Dioxide (22-29) mmol/L Anion Gap (12-20) BUN (9-16) mg/dL Creatinine (0.5-1.4) mg/dL Estim Creat Clear Calc Estimated GFR Random Glucose (60-115) mg/dL Calcium (8.4-10.2) mg/dL Urine Color Urine Appearance Urine pH (5.0-8.0) Ur Specific [place] (1.005-1.025) Urine Protein (NEG-TRACE) MG/DL Urine Glucose (UA) (NEG) MG/DL Urine Ketones (NEG) MG/DL Urine Blood (NEG) Urine Nitrite (NEG) Ur Leukocyte Esterase (NEG) Urine Test (NEGATIVE) Urine Opiates Screen (Not Detect) Urine Fentanyl Screen (Not Detect) Ur Barbiturates Screen (Not Detect) Ur Phencyclidine Scrn (Not Detect) Ur Amphetamines Screen (Not Detect) U Benzodiazepines Scrn (Not Detect) Urine Cocaine Screen (Not Detect) U Marijuana (THC) Screen (Not Detect) Ethyl Alcohol < 10 mg/dL COVID-19 ([facility]) (Negative) COVID-19 Clin Com <Ric Ulloa MD - Last Filed: 12/16/21 06:14> Lab Results 12/16/21 12/16/21 12/16/21 Range/Units 00:31 00:31 00:42 WBC (4.8-10.8) X10*3/uL RBC (4.20-5.50) X10*6/uL Hgb (12.0-16.0) g/dl Hct (37.0-47.0) % MCV (80.0-98.0) fL MCH (27.0-33.0) pg MCHC (31.0-35.0) g/dl RDW (11.0-16.0) % Plt Count (160-400) X10*3/uL MPV (9.4-12.3) fL Immature Gran % (Auto) (0.0-0.4) % Neut % (Auto) (45-73) % Lymph % (Auto) (20-40) % [place] % (Auto) (2-11) % Eos % (Auto) (0-4) % Baso % (Auto) (0-2) % Lymph # (Auto) (1.2-4.9) X10*3/uL [place] # (Auto) (0.1-1.2) X10*3/uL Eos # (Auto) (0.0-0.4) X10*3/uL Baso # (Auto) (0.0-0.2) X10*3/uL Abs Immat Gran (auto) (0.00-0.03) X10*3/uL Absolute Neuts (auto) (2.0-8.3) x10*3/uL Absolute Nucleated RBC (0.0-0.012) X10*3/uL Nucleated RBC % (auto) (0.0-0.2) /100WBC Sodium (135-145) mmol/L Potassium (3.3-5.1) mmol/L Chloride (96-108) mmol/L Carbon Dioxide (22-29) mmol/L Anion Gap (12-20) BUN (9-16) mg/dL Creatinine (0.5-1.4) mg/dL Estim Creat Clear Calc Estimated GFR Random Glucose (60-115) mg/dL Calcium (8.4-10.2) mg/dL Urine Color Urine Appearance Urine pH (5.0-8.0) Ur Specific [place] (1.005-1.025) Urine Protein (NEG-TRACE) MG/DL Urine Glucose (UA) (NEG) MG/DL Urine Ketones (NEG) MG/DL Urine Blood (NEG) Urine Nitrite (NEG) Ur Leukocyte Esterase (NEG) Urine Test NEGATIVE (NEGATIVE) Urine Opiates Screen POSITIVE H (Not Detect) Urine Fentanyl Screen POSITIVE H (Not Detect) Ur Barbiturates Screen Not Detected (Not Detect) Ur Phencyclidine Scrn Not Detected (Not Detect) Ur Amphetamines Screen Not Detected (Not Detect) U Benzodiazepines Scrn Not Detected (Not Detect) Urine Cocaine Screen POSITIVE H (Not Detect) U Marijuana (THC) Screen POSITIVE H (Not Detect) Ethyl Alcohol mg/dL COVID-19 ([facility]) Negative (Negative) COVID-19 Clin Com See Note 12/16/21 12/16/21 12/16/21 Range/Units 00:42 00:52 00:52 WBC 5.3 (4.8-10.8) X10*3/uL RBC 4.87 (4.20-5.50) X10*6/uL Hgb 13.6 (12.0-16.0) g/dl Hct 40.7 (37.0-47.0) % MCV 83.6 (80.0-98.0) fL MCH 27.9 (27.0-33.0) pg MCHC 33.4 (31.0-35.0) g/dl RDW 13.2 (11.0-16.0) % Plt Count 194 (160-400) X10*3/uL MPV 9.2 L (9.4-12.3) fL Immature Gran % (Auto) 0.2 (0.0-0.4) % Neut % (Auto) 58.2 (45-73) % Lymph % (Auto) 34.6 (20-40) % [place] % (Auto) 6.2 (2-11) % Eos % (Auto) 0.4 (0-4) % Baso % (Auto) 0.4 (0-2) % Lymph # (Auto) 1.8 (1.2-4.9) X10*3/uL [place] # (Auto) 0.3 (0.1-1.2) X10*3/uL Eos # (Auto) 0.0 (0.0-0.4) X10*3/uL Baso # (Auto) 0.0 (0.0-0.2) X10*3/uL Abs Immat Gran (auto) 0.01 (0.00-0.03) X10*3/uL Absolute Neuts (auto) 3.1 (2.0-8.3) x10*3/uL Absolute Nucleated RBC 0.000 (0.0-0.012) X10*3/uL Nucleated RBC % (auto) 0.0 (0.0-0.2) /100WBC Sodium 137 (135-145) mmol/L Potassium 3.4 D (3.3-5.1) mmol/L Chloride 106 (96-108) mmol/L Carbon Dioxide 24 (22-29) mmol/L Anion Gap 10 L (12-20) BUN 14 (9-16) mg/dL Creatinine 0.75 (0.5-1.4) mg/dL Estim Creat Clear Calc 84.1 Estimated GFR > 60 Random Glucose 105 (60-115) mg/dL Calcium 9.1 (8.4-10.2) mg/dL Urine Color YELLOW Urine Appearance HAZY Urine pH 6.5 (5.0-8.0) Ur Specific [place] 1.025 (1.005-1.025) Urine Protein NEG (NEG-TRACE) MG/DL Urine Glucose (UA) NEG (NEG) MG/DL Urine Ketones 15 (NEG) MG/DL Urine Blood NEG (NEG) Urine Nitrite NEG (NEG) Ur Leukocyte Esterase NEG (NEG) Urine Test (NEGATIVE) Urine Opiates Screen (Not Detect) Urine Fentanyl Screen (Not Detect) Ur Barbiturates Screen (Not Detect) Ur Phencyclidine Scrn (Not Detect) Ur Amphetamines Screen (Not Detect) U Benzodiazepines Scrn (Not Detect) Urine Cocaine Screen (Not Detect) U Marijuana (THC) Screen (Not Detect) Ethyl Alcohol mg/dL COVID-19 ([facility]) (Negative) COVID-19 Clin Com 12/16/21 Range/Units 00:52 WBC (4.8-10.8) X10*3/uL RBC (4.20-5.50) X10*6/uL Hgb (12.0-16.0) g/dl Hct (37.0-47.0) % MCV (80.0-98.0) fL MCH (27.0-33.0) pg MCHC (31.0-35.0) g/dl RDW (11.0-16.0) % Plt Count (160-400) X10*3/uL MPV (9.4-12.3) fL Immature Gran % (Auto) (0.0-0.4) % Neut % (Auto) (45-73) % Lymph % (Auto) (20-40) % [place] % (Auto) (2-11) % Eos % (Auto) (0-4) % Baso % (Auto) (0-2) % Lymph # (Auto) (1.2-4.9) X10*3/uL [place] # (Auto) (0.1-1.2) X10*3/uL Eos # (Auto) (0.0-0.4) X10*3/uL Baso # (Auto) (0.0-0.2) X10*3/uL Abs Immat Gran (auto) (0.00-0.03) X10*3/uL Absolute Neuts (auto) (2.0-8.3) x10*3/uL Absolute Nucleated RBC (0.0-0.012) X10*3/uL Nucleated RBC % (auto) (0.0-0.2) /100WBC Sodium (135-145) mmol/L Potassium (3.3-5.1) mmol/L Chloride (96-108) mmol/L Carbon Dioxide (22-29) mmol/L Anion Gap (12-20) BUN (9-16) mg/dL Creatinine (0.5-1.4) mg/dL Estim Creat Clear Calc Estimated GFR Random Glucose (60-115) mg/dL Calcium (8.4-10.2) mg/dL Urine Color Urine Appearance Urine pH (5.0-8.0) Ur Specific [place] (1.005-1.025) Urine Protein (NEG-TRACE) MG/DL Urine Glucose (UA) (NEG) MG/DL Urine Ketones (NEG) MG/DL Urine Blood (NEG) Urine Nitrite (NEG) Ur Leukocyte Esterase (NEG) Urine Test (NEGATIVE) Urine Opiates Screen (Not Detect) Urine Fentanyl Screen (Not Detect) Ur Barbiturates Screen (Not Detect) Ur Phencyclidine Scrn (Not Detect) Ur Amphetamines Screen (Not Detect) U Benzodiazepines Scrn (Not Detect) Urine Cocaine Screen (Not Detect) U Marijuana (THC) Screen (Not Detect) Ethyl Alcohol < 10 mg/dL COVID-19 ([facility]) (Negative) COVID-19 Clin Com <Daylin Epps MD - Last Filed: 12/16/21 10:11> Lab Results 12/16/21 12/16/21 12/16/21 Range/Units 00:31 00:31 00:42 WBC (4.8-10.8) X10*3/uL RBC (4.20-5.50) X10*6/uL Hgb (12.0-16.0) g/dl Hct (37.0-47.0) % MCV (80.0-98.0) fL MCH (27.0-33.0) pg MCHC (31.0-35.0) g/dl RDW (11.0-16.0) % Plt Count (160-400) X10*3/uL MPV (9.4-12.3) fL Immature Gran % (Auto) (0.0-0.4) % Neut % (Auto) (45-73) % Lymph % (Auto) (20-40) % [place] % (Auto) (2-11) % Eos % (Auto) (0-4) % Baso % (Auto) (0-2) % Lymph # (Auto) (1.2-4.9) X10*3/uL [place] # (Auto) (0.1-1.2) X10*3/uL Eos # (Auto) (0.0-0.4) X10*3/uL Baso # (Auto) (0.0-0.2) X10*3/uL Abs Immat Gran (auto) (0.00-0.03) X10*3/uL Absolute Neuts (auto) (2.0-8.3) x10*3/uL Absolute Nucleated RBC (0.0-0.012) X10*3/uL Nucleated RBC % (auto) (0.0-0.2) /100WBC Sodium (135-145) mmol/L Potassium (3.3-5.1) mmol/L Chloride (96-108) mmol/L Carbon Dioxide (22-29) mmol/L Anion Gap (12-20) BUN (9-16) mg/dL Creatinine (0.5-1.4) mg/dL Estim Creat Clear Calc Estimated GFR Random Glucose (60-115) mg/dL Calcium (8.4-10.2) mg/dL Urine Color Urine Appearance Urine pH (5.0-8.0) Ur Specific [place] (1.005-1.025) Urine Protein (NEG-TRACE) MG/DL Urine Glucose (UA) (NEG) MG/DL Urine Ketones (NEG) MG/DL Urine Blood (NEG) Urine Nitrite (NEG) Ur Leukocyte Esterase (NEG) Urine Test NEGATIVE (NEGATIVE) Urine Opiates Screen POSITIVE H (Not Detect) Urine Fentanyl Screen POSITIVE H (Not Detect) Ur Barbiturates Screen Not Detected (Not Detect) Ur Phencyclidine Scrn Not Detected (Not Detect) Ur Amphetamines Screen Not Detected (Not Detect) U Benzodiazepines Scrn Not Detected (Not Detect) Urine Cocaine Screen POSITIVE H (Not Detect) U Marijuana (THC) Screen POSITIVE H (Not Detect) Ethyl Alcohol mg/dL COVID-19 (CHARLY) Negative (Negative) COVID-19 Clin Com See Note 12/16/21 12/16/21 12/16/21 Range/Units 00:42 00:52 00:52 WBC 5.3 (4.8-10.8) X10*3/uL RBC 4.87 (4.20-5.50) X10*6/uL Hgb 13.6 (12.0-16.0) g/dl Hct 40.7 (37.0-47.0) % MCV 83.6 (80.0-98.0) fL MCH 27.9 (27.0-33.0) pg MCHC 33.4 (31.0-35.0) g/dl RDW 13.2 (11.0-16.0) % Plt Count 194 (160-400) X10*3/uL MPV 9.2 L (9.4-12.3) fL Immature Gran % (Auto) 0.2 (0.0-0.4) % Neut % (Auto) 58.2 (45-73) % Lymph % (Auto) 34.6 (20-40) % [place] % (Auto) 6.2 (2-11) % Eos % (Auto) 0.4 (0-4) % Baso % (Auto) 0.4 (0-2) % Lymph # (Auto) 1.8 (1.2-4.9) X10*3/uL [place] # (Auto) 0.3 (0.1-1.2) X10*3/uL Eos # (Auto) 0.0 (0.0-0.4) X10*3/uL Baso # (Auto) 0.0 (0.0-0.2) X10*3/uL Abs Immat Gran (auto) 0.01 (0.00-0.03) X10*3/uL Absolute Neuts (auto) 3.1 (2.0-8.3) x10*3/uL Absolute Nucleated RBC 0.000 (0.0-0.012) X10*3/uL Nucleated RBC % (auto) 0.0 (0.0-0.2) /100WBC Sodium 137 (135-145) mmol/L Potassium 3.4 D (3.3-5.1) mmol/L Chloride 106 (96-108) mmol/L Carbon Dioxide 24 (22-29) mmol/L Anion Gap 10 L (12-20) BUN 14 (9-16) mg/dL Creatinine 0.75 (0.5-1.4) mg/dL Estim Creat Clear Calc 84.1 Estimated GFR > 60 Random Glucose 105 (60-115) mg/dL Calcium 9.1 (8.4-10.2) mg/dL Urine Color YELLOW Urine Appearance HAZY Urine pH 6.5 (5.0-8.0) Ur Specific [place] 1.025 (1.005-1.025) Urine Protein NEG (NEG-TRACE) MG/DL Urine Glucose (UA) NEG (NEG) MG/DL Urine Ketones 15 (NEG) MG/DL Urine Blood NEG (NEG) Urine Nitrite NEG (NEG) Ur Leukocyte Esterase NEG (NEG) Urine Test (NEGATIVE) Urine Opiates Screen (Not Detect) Urine Fentanyl Screen (Not Detect) Ur Barbiturates Screen (Not Detect) Ur Phencyclidine Scrn (Not Detect) Ur Amphetamines Screen (Not Detect) U Benzodiazepines Scrn (Not Detect) Urine Cocaine Screen (Not Detect) U Marijuana (THC) Screen (Not Detect) Ethyl Alcohol mg/dL COVID-19 ([facility]) (Negative) COVID-19 Clin Com 12/16/21 Range/Units 00:52 WBC (4.8-10.8) X10*3/uL RBC (4.20-5.50) X10*6/uL Hgb (12.0-16.0) g/dl Hct (37.0-47.0) % MCV (80.0-98.0) fL MCH (27.0-33.0) pg MCHC (31.0-35.0) g/dl RDW (11.0-16.0) % Plt Count (160-400) X10*3/uL MPV (9.4-12.3) fL Immature Gran % (Auto) (0.0-0.4) % Neut % (Auto) (45-73) % Lymph % (Auto) (20-40) % [place] % (Auto) (2-11) % Eos % (Auto) (0-4) % Baso % (Auto) (0-2) % Lymph # (Auto) (1.2-4.9) X10*3/uL [place] # (Auto) (0.1-1.2) X10*3/uL Eos # (Auto) (0.0-0.4) X10*3/uL Baso # (Auto) (0.0-0.2) X10*3/uL Abs Immat Gran (auto) (0.00-0.03) X10*3/uL Absolute Neuts (auto) (2.0-8.3) x10*3/uL Absolute Nucleated RBC (0.0-0.012) X10*3/uL Nucleated RBC % (auto) (0.0-0.2) /100WBC Sodium (135-145) mmol/L Potassium (3.3-5.1) mmol/L Chloride (96-108) mmol/L Carbon Dioxide (22-29) mmol/L Anion Gap (12-20) BUN (9-16) mg/dL Creatinine (0.5-1.4) mg/dL Estim Creat Clear Calc Estimated GFR Random Glucose (60-115) mg/dL Calcium (8.4-10.2) mg/dL Urine Color Urine Appearance Urine pH (5.0-8.0) Ur Specific [place] (1.005-1.025) Urine Protein (NEG-TRACE) MG/DL Urine Glucose (UA) (NEG) MG/DL Urine Ketones (NEG) MG/DL Urine Blood (NEG) Urine Nitrite (NEG) Ur Leukocyte Esterase (NEG) Urine Test (NEGATIVE) Urine Opiates Screen (Not Detect) Urine Fentanyl Screen (Not Detect) Ur Barbiturates Screen (Not Detect) Ur Phencyclidine Scrn (Not Detect) Ur Amphetamines Screen (Not Detect) U Benzodiazepines Scrn (Not Detect) Urine Cocaine Screen (Not Detect) U Marijuana (THC) Screen (Not Detect) Ethyl Alcohol < 10 mg/dL COVID-19 ([facility]) (Negative) COVID-19 Clin Com <GREYSON House - Last Filed: 12/16/21 10:52> Discharge Plan Discharge Clinical Impression: Paranoid, Substance abuse <Ric Ulloa MD - Last Filed: 12/16/21 06:14> Patient Disposition: Still a Patient <Ric Ulloa MD - Last Filed: 12/16/21 06:14> Prescriptions: No Action trazodone 150 mg tablet 1 tab PO BEDTIME 0RF ziprasidone HCl 40 mg capsule 1 cap PO BEDTIME 0RF methadone 5 mg Tablet 91 mg PO DAILY 0RF <Ric Ulloa MD - Last Filed: 12/16/21 06:14>
[2021-12-16 00:18] VITALS: BP 115/73; BP 128/72; PULSE 90; PULSE 94; RESP 18; TEMP 37.1; O2SAT 96; O2SAT 98; BMI 23.0
[2021-12-16 00:51] LABS: Appearance Urine HAZY; Color Urine YELLOW; Glucose Urine UA NEG (NEG); Leukocyte Esterase Urine NEG (NEG); Nitrite Urine NEG (NEG); PH 6.5 (5.0-8.0); Specific Gravity - Urine 1.025 (1.005-1.025); Urine Blood NEG (NEG); Urine Ketones 15 MG/DL (NEG); Urine Protein NEG (NEG-TRACE)
[2021-12-16 00:52] LABS: UPreg QC Valid YES; Urine Pregnancy NEGATIVE (NEGATIVE)
[2021-12-16 00:53] LABS: COVID-19 Test Negative (Negative); IDNOW Serial# 9DD0AD1C
[2021-12-16 00:57] LABS: Basophils Percent Auto 0.4 % (0-2); Eosinophils Percent Auto 0.4 % (0-4); Hematocrit 40.7 % (37.0-47.0); Hemoglobin 13.6 g/dl (12.0-16.0); Imm Gran Abs Auto 0.01 X10*3/uL (0.00-0.03); Imm Gran Pct Auto 0.2 % (0.0-0.4); Lymphocytes Absolute Auto 1.8 X10*3/uL (1.2-4.9); Lymphocytes Percent Auto 34.6 % (20-40); MANUAL DIFF FLAG NO; Mean Corpuscular HGB Conc 33.4 g/dl (31.0-35.0); Mean Corpuscular Hemoglobin 27.9 pg (27.0-33.0); Mean Corpuscular Volume 83.6 fL (80.0-98.0); Mean Platelet Volume 9.2 fL (9.4-12.3); Monocytes Absolute Auto 0.3 X10*3/uL (0.1-1.2); Monocytes Percent Auto 6.2 % (2-11); Neutrophils Absolute Auto 3.1 x10*3/uL (2.0-8.3); Neutrophils Percent Auto 58.2 % (45-73); Platelet Count 194 X10*3/uL (160-400); Red Blood Count 4.87 X10*6/uL (4.20-5.50); Red Cell Distribution Width 13.2 % (11.0-16.0); White Blood Count 5.3 X10*3/uL (4.8-10.8)
[2021-12-16 01:03] LABS: Amphetamine Screen Urine Not Detected (Not Detect); Barbiturates, Urine Not Detected (Not Detect); Benzodiazepines Screen Urine Not Detected (Not Detect); Cannabinoid Screen Urine POSITIVE (Not Detect); Cocaine Screen Urine POSITIVE (Not Detect); Fentanyl, urine POSITIVE (Not Detect); Opiate Screen Urine POSITIVE (Not Detect); Phencyclidine Screen Urine Not Detected (Not Detect)
[2021-12-16 01:11] LABS: Ethanol < 10 mg/dL
[2021-12-16 01:13] LABS: Anion Gap 10 (12-20); Blood Urea Nitrogen 14 mg/dL (9-16); Calcium 9.1 mg/dL (8.4-10.2); Carbon Dioxide 24 mmol/L (22-29); Chloride 106 mmol/L (96-108); Creatinine Clr Calc Pharmacy 84.1; Estimated Glomerular Filt Rate > 60; Glucose Random 105 mg/dL (60-115); Potassium 3.4 mmol/L (3.3-5.1); Sodium 137 mmol/L (135-145)
--- NOTE | 2021-12-16 06:30 | PC.NURSE ---
Patient slept through the night, no distress observed/reported, behavior calm and pleasant, med rec completed confirmed, BHN referral completed/confirmed, pending evaluation, VSS, will continue to monitor.
[2021-12-16 07:53] VITALS: BP 112/63; PULSE 72; RESP 14; TEMP 36.8; O2SAT 98
[2021-12-16] MEDS: methADONE HCl 20 MG/2 ML ORAL.CONC 90 MG PO (08:16)
--- NOTE | 2021-12-16 10:43 | ECG_ITS ---
Test Reason : MEDICAL CLEARANCE Blood Pressure : / mmHG Vent. Rate : 063 BPM Atrial Rate : 063 BPM P-R Int : 146 ms QRS Dur : 082 ms QT Int : 466 ms P-R-T Axes : 053 079 069 degrees QTc Int : 476 ms Normal sinus rhythm Normal ECG When compared with ECG of 25-NOV-2020 16:31, No significant change was found Referred By: Daylin Epps Electronically Signed By:SHANNA PRICE MD
[2021-12-16 11:51] LABS: COVID-19 Test Negative (Negative); IDNOW Serial# 9DD0AD1C
[2021-12-16 15:58] VITALS: BP 105/67; PULSE 66; TEMP 36.6; O2SAT 100
[2021-12-16 18:00] VITALS: BP 135/72; PULSE 70; RESP 16; TEMP 36.6; O2SAT 99
[2021-12-16] MEDS: Ziprasidone 40 MG CAPSULE PO (22:30)
[2021-12-16] MEDS: traZODone HCL 50 MG TABLET 150 MG PO (22:30)
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
[2021-12-17 05:40] VITALS: BP 107/57; PULSE 67; TEMP 36.2; O2SAT 99
[2021-12-17] MEDS: methADONE HCl 20 MG/2 ML ORAL.CONC 90 MG PO (08:44)
[2021-12-17] MEDS: hydrOXYzine HCL 25 MG TABLET PO (09:09)
[2021-12-17 09:13] LABS: Cholesterol 146 mg/dL; HDL Cholesterol 44 mg/dL; LDL Cholesterol Calculated 85 mg/dl; Triglycerides 86 mg/dL
[2021-12-17 09:34] LABS: Thyroid Stimulating Hormone 0.63 uIU/mL (0.32-4.0)
[2021-12-17 09:56] LABS: Folate 16.2 ng/mL (> or = 4.0); Vitamin B12 737 pg/mL (200-900)
[2021-12-17 11:28] LABS: Estimated Average Glucose 94 mg/dL; Hemoglobin A1c % 4.9 %
[2021-12-17] MEDS: LORazepam 1 MG TABLET PO (11:55)
[2021-12-17] MEDS: Magnesium Citrate 300 ML SOLUTION PO (11:55)
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
[2021-12-17] MEDS: LORazepam 0.5 MG TABLET PO ×2 (16:59→20:18)
--- NOTE | 2021-12-17 17:03 | PC.NURSE ---
Met with patient to discuss sx of alcohol withdrawal. CIWA score 11, Ativan 0.5mg given with effect pending.
[2021-12-17 19:30] VITALS: BP 120/68; PULSE 89; RESP 17; TEMP 37.1; O2SAT 98
[2021-12-17] MEDS: Ziprasidone 40 MG CAPSULE PO (20:18)
[2021-12-17] MEDS: OXcarbazepine 300 MG TABLET PO (20:18)
[2021-12-17] MEDS: traZODone HCL 50 MG TABLET 150 MG PO (20:20)
[2021-12-18] MEDS: LORazepam 1 MG TABLET PO ×2 (03:44→12:06)
[2021-12-18 06:00] VITALS: BP 100/62; PULSE 83; RESP 18; TEMP 37.3; O2SAT 98
[2021-12-18] MEDS: LORazepam 0.5 MG TABLET PO ×3 (08:30→21:03)
[2021-12-18] MEDS: Docusate Sodium 100 MG CAPSULE PO ×2 (08:30→21:03)
[2021-12-18] MEDS: Multivitamin TABLET 1 TAB PO (08:30)
[2021-12-18] MEDS: methADONE HCl 20 MG/2 ML ORAL.CONC 90 MG PO (08:30)
[2021-12-18] MEDS: Cholecalciferol (Vitamin D3) 10 MCG TABLET PO (08:30)
[2021-12-18] MEDS: OXcarbazepine 300 MG TABLET PO ×2 (08:30→21:03)
[2021-12-18] MEDS: cloNIDine HCL 0.1 MG TABLET PO (10:30)
[2021-12-18] MEDS: hydrOXYzine HCL 25 MG TABLET PO (17:53)
[2021-12-18] MEDS: Acetaminophen 325 MG TABLET 650 MG PO (17:57)
[2021-12-18 18:00] VITALS: BP 97/71; PULSE 102; RESP 18; TEMP 36.6
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
[2021-12-18] MEDS: Ziprasidone 40 MG CAPSULE PO (21:03)
[2021-12-18] MEDS: traZODone HCL 50 MG TABLET 150 MG PO (21:03)
[2021-12-19 06:10] VITALS: BP 124/55; PULSE 79; RESP 16; TEMP 36.2; O2SAT 98
[2021-12-19] MEDS: OXcarbazepine 300 MG TABLET PO ×2 (08:15→19:52)
[2021-12-19] MEDS: Docusate Sodium 100 MG CAPSULE PO ×2 (08:15→19:51)
[2021-12-19] MEDS: methADONE HCl 20 MG/2 ML ORAL.CONC 90 MG PO (08:15)
[2021-12-19] MEDS: Cholecalciferol (Vitamin D3) 10 MCG TABLET PO (08:15)
[2021-12-19] MEDS: LORazepam 0.5 MG TABLET PO ×3 (08:15→19:53)
[2021-12-19] MEDS: Multivitamin TABLET 1 TAB PO (08:15)
[2021-12-19] MEDS: LORazepam 1 MG TABLET PO ×2 (09:23→18:04)
[2021-12-19] MEDS: cloNIDine HCL 0.1 MG TABLET PO ×2 (13:07→19:52)
[2021-12-19] MEDS: Gabapentin 100 MG CAPSULE PO (13:07)
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
[2021-12-19 18:00] VITALS: BP 119/74; PULSE 99; RESP 18; TEMP 36.8; O2SAT 96
[2021-12-19] MEDS: traZODone HCL 50 MG TABLET 150 MG PO (19:52)
[2021-12-19] MEDS: Ziprasidone 40 MG CAPSULE PO (19:52)
[2021-12-20 06:00] VITALS: BP 144/69; PULSE 97; O2SAT 99
[2021-12-20] MEDS: Cholecalciferol (Vitamin D3) 10 MCG TABLET PO (08:21)
[2021-12-20] MEDS: Docusate Sodium 100 MG CAPSULE PO (08:21)
[2021-12-20] MEDS: methADONE HCl 20 MG/2 ML ORAL.CONC 90 MG PO (08:21)
[2021-12-20] MEDS: Multivitamin TABLET 1 TAB PO (08:21)
[2021-12-20] MEDS: OXcarbazepine 300 MG TABLET PO (08:21)
[2021-12-20] MEDS: cloNIDine HCL 0.1 MG TABLET PO (11:52)
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
== END 2021-12-20 14:36 | disposition home or self-care (01) | DRG 885 ==
LOC: HO.ED 10:53 → HO.PM5 17:23
PROVIDERS: Emergency Medicine; Social Worker; Admitting Provider Psychiatry & Neurology Psychiatry; Emergency Provider Emergency Medicine; Visit Provider Clinical Nurse Specialist Psychiatric/Mental Health, Adult
DX: F31.9 Bipolar disorder, unspecified (principal); R45.851 Suicidal ideations; F11.20 Opioid dependence, uncomplicated; F10.20 Alcohol dependence, uncomplicated; F43.10 Post-traumatic stress disorder, unspecified; Z20.822 Contact with and (suspected) exposure to COVID-19; Z88.5 Allergy status to narcotic agent; Z79.899 Other long term (current) drug therapy
CPT/HCPCS: 36415; 80048; 80061; 80307; 81003; 81025; 82077; 82607; 82746; 83036; 84443; 85025; 87635; 93005; 99285

== ENCOUNTER 2021-12-23 12:27 | Emergency (ER) | payer OTHER, SELFPAY ==
[2021-12-23 12:36] VITALS: BP 210/130; PULSE 129; O2SAT 97
--- NOTE | 2021-12-23 12:50 | HE.PHANOTE ---
Methadone clinic gave patient dose for 12/24/2021 due to impending bad weather. Patient brought in dose which will be held in pharmacy safe until patient's discharge. If patient is held in the pod, methadone to be order by provider and patient will use hospital's methadone. Dose verified by rx bottle dispensed from methadone clinic: Methadone 91 mg dispensed on 12/23/21. Danielle Colbert, ShajiD
[2021-12-23 13:19] LABS: Appearance Urine HAZY; Color Urine YELLOW; Glucose Urine UA 100 MG/DL (NEG); Leukocyte Esterase Urine NEG (NEG); Nitrite Urine NEG (NEG); PH 6.5 (5.0-8.0); Specific Gravity - Urine 1.025 (1.005-1.025); Urine Blood NEG (NEG); Urine Ketones NEG (NEG); Urine Protein TRACE MG/DL (NEG-TRACE)
[2021-12-23 13:20] VITALS: BP 149/88; PULSE 109; RESP 18; TEMP 37.2; O2SAT 97; BMI 24.7
[2021-12-23 13:20] LABS: UPreg QC Valid YES; Urine Pregnancy NEGATIVE (NEGATIVE)
[2021-12-23 13:27] LABS: Mucus Urine 1+ /LPF; RBC Urine 0 /HPF (0); Squamous Epithelial Cell Urine 1+ /LPF; WBC Urine 0 /HPF (0-4)
[2021-12-23 13:28] LABS: Amphetamine Screen Urine Not Detected (Not Detect); Barbiturates, Urine Not Detected (Not Detect); Benzodiazepines Screen Urine Not Detected (Not Detect); Cannabinoid Screen Urine POSITIVE (Not Detect); Cocaine Screen Urine POSITIVE (Not Detect); Fentanyl, urine POSITIVE (Not Detect); Opiate Screen Urine POSITIVE (Not Detect); Phencyclidine Screen Urine Not Detected (Not Detect)
[2021-12-23 13:32] LABS: COVID-19 Test Negative (Negative)
--- NOTE | 2021-12-23 13:39 | ED_ITS ---
HPI - Psych General Chief Complaint: Psychiatric Symptoms Stated Complaint: CRISIS,SI Time Seen by Provider: 12/23/21 16:26 Source: patient Mode of arrival: ambulatory Limitations: no limitations History of Present Illness HPI Narrative: 36-year-old female with history of anxiety presents to ED for severe anxiety. Patient states severe anxiety and paranoia. Patient feeling someone is following her at all times. Patient states at times she will have THOUGH of not wanting to live but has no actual plan to kill herself. Related Data Home Medications Medication Instructions Recorded Confirmed methadone 5 mg tablet 91 mg PO DAILY 12/16/21 12/23/21 trazodone 150 mg tablet 1 tab PO BEDTIME 12/16/21 12/16/21 ziprasidone HCl 40 mg capsule 1 cap PO BEDTIME 12/16/21 12/16/21 Previous Rx's Medication Instructions Recorded cholecalciferol (vitamin D3) 10 10 mcg PO DAILY #7 tab 12/20/21 mcg (400 unit) tablet (Vitamin D3) docusate sodium 100 mg capsule 100 mg PO BID #14 cap 12/20/21 multivitamin (Daily-Ketan) 1 tab PO DAILY #30 tab 12/20/21 naloxone 4 mg/actuation nasal 4 mg INTRANASAL Q2M PRN #2 ea 12/20/21 spray (Narcan) oxcarbazepine 300 mg tablet 300 mg PO BID #14 tab 12/20/21 trazodone 50 mg tablet 150 mg PO BEDTIME #0 tab 12/20/21 ziprasidone HCl 40 mg capsule 40 mg PO BEDTIME #7 cap 12/20/21 Allergies Allergy/AdvReac Type Severity Reaction Status Date / Time codeine [CODEINE] Allergy Intermediate RASH Verified 11/25/20 14:32 quetiapine [From Allergy Intermediate RESTLESS Verified 11/25/20 14:32 SEROQUEL] LEG SYNDROME Review of Systems Verdana 4l Review of Systems: Verdana 4d Anxiety, and paranoia. Verdana 4d Thought of not wanting to live but no actual SI plan Verdana 4d Yes all other systems are reviewed and are negative [facility] Past Medical History Medical History (Updated 12/23/21 @ 19:08 by GREYSON Walsh) Alcohol use disorder, moderate, dependence Asthma Bipolar disorder with psychotic features Hepatitis C Opioid use disorder PTSD (post-traumatic stress disorder) Stimulant use disorder Surgical History H/O: hysterectomy Social History Social History Household Members: Spouse and Other Household Members Other:: 's drug dealer Housing: Apartment Do you presently have visiting nurse or other home services: No Alcohol intake: current Patient Tobacco Use Status: Tobacco use Unknown Second Hand Smoke Exposure: Yes Use of substances other than those prescribed or required for medical reasons: Yes Substance Use Type: Crack/Cocaine, Marijuana and Opiates Advance Directives: No Advance Directives Information Provided: Yes Patient : No service: No Sexual orientation: Did not discuss Physical Exam Verdana 4l Vital Signs: Verdana 4d Verdana 4d Vital Signs: Verdana 4d Verdana 4Bd Last Vital Signs Verdana 4d Legal Entity Controller New 4d Legal Entity Controller New 4d Temp 97.8 F 12/23/21 15:51 Legal Entity Controller New 4d Pulse 82 12/23/21 15:51 Legal Entity Controller New 4d Resp 18 12/23/21 15:51 BP 117/66 12/23/21 15:51 Pulse Ox 100 12/23/21 15:51 BMI result Body Mass Index 24.7 Const: General: cooperative, healthy appearing, comfortable, no acute distress, well developed, alert, awake and Physically active Orientation/consciousness: patient oriented x3 HENMT: Head: Yes normal to inspection, Yes No palpable skull fracture present, Yes normocephalic, Yes atraumatic and No abrasion Eyes: General: appearance normal, both eyes and all related structures Neck: Neck: Yes normal visual inspection, Yes full ROM, Yes no lymphadenopathy, Yes no meningeal signs, Yes trachea midline, Yes supple, No anterior neck swelling and No tender Chest: Chest palpation & inspection: normal inspection of the chest and normal palpation of entire chest wall Resp: Effort & Inspection: normal respiratory effort and able to speak in complete sentences Auscultation: clear to auscultation bilaterally Cardio: Jugular venous distension: no JVD Heart sounds: S1 normal heart sound present and S2 normal heart sound present GI: Inspection: Yes normal to inspection and No abdominal wall ecchymosis Palpation (GI): Soft to palpation, not firm, nontender, no guarding and not rigid : General: No CVA tenderness and Yes no CVA tenderness Back/Spine/Pelvis: Back: no CVA tenderness, No CVA tenderness and No back tenderness Skin: Other: Multiple excoriations. Patient states she is scratching herself and picking at skin because of severe anxiety. General skin exam: elasticity normal and turgor normal Neuro: General: patient oriented x3, gait normal, no meningeal signs and CN's II-XI intact bilaterally Cranial nerves: Yes CN's II-XII intact bilaterally Extrem: General: Yes normal to inspection and Yes full ROM Psych: Other: Severe anxiety Appearance: grossly normal and well kempt Course Course Course Narrative: U tox a COVID swab ordered. pATIENT IS STABLE. Patient recently had labs 2 weeks ago during admission Reevaluation(s) Reevaluation #1: PATIENT AWAITING N EVALUATION Time: 19:10 MDM - Psych MDM Narrative Medical decision making narrative: Anxiety. Depression Lab Data Result diagrams: 12/23/21 16:13 12/23/21 16:13 Labs: Lab Results 12/23/21 12/23/21 12/23/21 Range/Units 13:02 13:02 13:02 WBC (4.8-10.8) X10*3/uL RBC (4.20-5.50) X10*6/uL Hgb (12.0-16.0) g/dl Hct (37.0-47.0) % MCV (80.0-98.0) fL MCH (27.0-33.0) pg MCHC (31.0-35.0) g/dl RDW (11.0-16.0) % Plt Count (160-400) X10*3/uL MPV (9.4-12.3) fL Immature Gran % (Auto) (0.0-0.4) % Neut % (Auto) (45-73) % Lymph % (Auto) (20-40) % [place] % (Auto) (2-11) % Eos % (Auto) (0-4) % Baso % (Auto) (0-2) % Lymph # (Auto) (1.2-4.9) X10*3/uL [place]ent # (Auto) (0.1-1.2) X10*3/uL Eos # (Auto) (0.0-0.4) X10*3/uL Baso # (Auto) (0.0-0.2) X10*3/uL Abs Immat Gran (auto) (0.00-0.03) X10*3/uL Absolute Neuts (auto) (2.0-8.3) x10*3/uL Absolute Nucleated RBC (0.0-0.012) X10*3/uL Nucleated RBC % (auto) (0.0-0.2) /100WBC Sodium (135-145) mmol/L Potassium (3.3-5.1) mmol/L Chloride (96-108) mmol/L Carbon Dioxide (22-29) mmol/L Anion Gap (12-20) BUN (9-16) mg/dL Creatinine (0.5-1.4) mg/dL Estim Creat Clear Calc Estimated GFR Random Glucose (60-115) mg/dL Calcium (8.4-10.2) mg/dL Total Bilirubin (0.0-1.0) mg/dL AST (5-31) U/L ALT (0-31) U/L Alkaline Phosphatase (39-117) U/L Total Protein (6.5-8.0) g/dL Albumin (3.5-5.0) g/dL Urine Color YELLOW Urine Appearance HAZY Urine pH 6.5 (5.0-8.0) Ur Specific [place] 1.025 (1.005-1.025) Urine Protein TRACE (NEG-TRACE) MG/DL Urine Glucose (UA) 100 H (NEG) MG/DL Urine Ketones NEG (NEG) MG/DL Urine Blood NEG (NEG) Urine Nitrite NEG (NEG) Ur Leukocyte Esterase NEG (NEG) Urine RBC 0 (0) /HPF Urine WBC 0 (0-4) /HPF Ur Squamous Epith Cells 1+ /LPF Urine Bacteria NONE /LPF Urine Mucus 1+ /LPF Urine Test NEGATIVE (NEGATIVE) Urine Opiates Screen (Not Detect) Urine Fentanyl Screen (Not Detect) Ur Barbiturates Screen (Not Detect) Ur Phencyclidine Scrn (Not Detect) Ur Amphetamines Screen (Not Detect) U Benzodiazepines Scrn (Not Detect) Urine Cocaine Screen (Not Detect) U Marijuana (THC) Screen (Not Detect) Ethyl Alcohol mg/dL COVID-19 ([facility]) Negative (Negative) COVID-19 Clin Com See Note 02/03/22 02/03/22 02/03/22 Range/Units 13:02 16:13 16:13 WBC 4.6 L (4.8-10.8) X10*3/uL RBC 4.60 (4.20-5.50) X10*6/uL Hgb 12.9 (12.0-16.0) g/dl Hct 38.9 (37.0-47.0) % MCV 84.6 (80.0-98.0) fL MCH 28.0 (27.0-33.0) pg MCHC 33.2 (31.0-35.0) g/dl RDW 13.0 (11.0-16.0) % Plt Count 190 (160-400) X10*3/uL MPV 9.3 L (9.4-12.3) fL Immature Gran % (Auto) 0.4 (0.0-0.4) % Neut % (Auto) 55.2 (45-73) % Lymph % (Auto) 32.4 (20-40) % Sargent % (Auto) 8.9 (2-11) % Eos % (Auto) 2.2 (0-4) % Baso % (Auto) 0.9 (0-2) % Lymph # (Auto) 1.5 (1.2-4.9) X10*3/uL [place]ent # (Auto) 0.4 (0.1-1.2) X10*3/uL Eos # (Auto) 0.1 (0.0-0.4) X10*3/uL Baso # (Auto) 0.0 (0.0-0.2) X10*3/uL Abs Immat Gran (auto) 0.02 (0.00-0.03) X10*3/uL Absolute Neuts (auto) 2.6 (2.0-8.3) x10*3/uL Absolute Nucleated RBC 0.000 (0.0-0.012) X10*3/uL Nucleated RBC % (auto) 0.0 (0.0-0.2) /100WBC Sodium 137 (135-145) mmol/L Potassium 3.7 (3.3-5.1) mmol/L Chloride 101 (96-108) mmol/L Carbon Dioxide 29 (22-29) mmol/L Anion Gap 11 L (12-20) BUN 18 H (9-16) mg/dL Creatinine 0.80 (0.5-1.4) mg/dL Estim Creat Clear Calc 85.5 Estimated GFR > 60 Random Glucose 111 (60-115) mg/dL Calcium 8.7 (8.4-10.2) mg/dL Total Bilirubin 0.6 (0.0-1.0) mg/dL AST 60 H (5-31) U/L ALT 72 H (0-31) U/L Alkaline Phosphatase 63 (39-117) U/L Total Protein 7.5 (6.5-8.0) g/dL Albumin 4.0 (3.5-5.0) g/dL Urine Color Urine Appearance Urine pH (5.0-8.0) Ur Specific [place] (1.005-1.025) Urine Protein (NEG-TRACE) MG/DL Urine Glucose (UA) (NEG) MG/DL Urine Ketones (NEG) MG/DL Urine Blood (NEG) Urine Nitrite (NEG) Ur Leukocyte Esterase (NEG) Urine RBC (0) /HPF Urine WBC (0-4) /HPF Ur Squamous Epith /LPF Cells Urine Bacteria /LPF Urine Mucus /LPF Urine Test (NEGATIVE) Urine Opiates Screen POSITIVE H (Not Detect) Urine Fentanyl Screen POSITIVE H (Not Detect) Ur Barbiturates Screen Not Detected (Not Detect) Ur Phencyclidine Scrn Not Detected (Not Detect) Ur Amphetamines Screen Not Detected (Not Detect) U Benzodiazepines Scrn Not Detected (Not Detect) Urine Cocaine Screen POSITIVE H (Not Detect) U Marijuana (THC) POSITIVE H (Not Detect) Screen Ethyl Alcohol mg/dL COVID-19 ([facility]) (Negative) COVID-19 Clin Com 12/23/21 Range/Units 16:13 WBC (4.8-10.8) X10*3/uL RBC (4.20-5.50) X10*6/uL Hgb (12.0-16.0) g/dl Hct (37.0-47.0) % MCV (80.0-98.0) fL MCH (27.0-33.0) pg MCHC (31.0-35.0) g/dl RDW (11.0-16.0) % Plt Count (160-400) X10*3/uL MPV (9.4-12.3) fL Immature Gran % (Auto) (0.0-0.4) % Neut % (Auto) (45-73) % Lymph % (Auto) (20-40) % [place]ent % (Auto) (2-11) % Eos % (Auto) (0-4) % Baso % (Auto) (0-2) % Lymph # (Auto) (1.2-4.9) X10*3/uL [place] # (Auto) (0.1-1.2) X10*3/uL Eos # (Auto) (0.0-0.4) X10*3/uL Baso # (Auto) (0.0-0.2) X10*3/uL Abs Immat Gran (auto) (0.00-0.03) X10*3/uL Absolute Neuts (auto) (2.0-8.3) x10*3/uL Absolute Nucleated RBC (0.0-0.012) X10*3/uL Nucleated RBC % (auto) (0.0-0.2) /100WBC Sodium (135-145) mmol/L Potassium (3.3-5.1) mmol/L Chloride (96-108) mmol/L Carbon Dioxide (22-29) mmol/L Anion Gap (12-20) BUN (9-16) mg/dL Creatinine (0.5-1.4) mg/dL Estim Creat Clear Calc Estimated GFR Random Glucose (60-115) mg/dL Calcium (8.4-10.2) mg/dL Total Bilirubin (0.0-1.0) mg/dL AST (5-31) U/L ALT (0-31) U/L Alkaline Phosphatase (39-117) U/L Total Protein (6.5-8.0) g/dL Albumin (3.5-5.0) g/dL Urine Color Urine Appearance Urine pH (5.0-8.0) Ur Specific [place] (1.005-1.025) Urine Protein (NEG-TRACE) MG/DL Urine Glucose (UA) (NEG) MG/DL Urine Ketones (NEG) MG/DL Urine Blood (NEG) Urine Nitrite (NEG) Ur Leukocyte Esterase (NEG) Urine RBC (0) /HPF Urine WBC (0-4) /HPF Ur Squamous Epith Cells /LPF Urine Bacteria /LPF Urine Mucus /LPF Urine Test (NEGATIVE) Urine Opiates Screen (Not Detect) Urine Fentanyl Screen (Not Detect) Ur Barbiturates Screen (Not Detect) Ur Phencyclidine Scrn (Not Detect) Ur Amphetamines Screen (Not Detect) U Benzodiazepines Scrn (Not Detect) Urine Cocaine Screen (Not Detect) U Marijuana (THC) Screen (Not Detect) Ethyl Alcohol < 10 mg/dL COVID-19 ([facility]) (Negative) COVID-19 Clin Com Discharge Plan Discharge Clinical Impression: Anxiety, Depression Patient Disposition: Still a Patient Prescriptions: No Action trazodone 150 mg tablet 1 tab PO BEDTIME 0RF ziprasidone HCl 40 mg capsule 1 cap PO BEDTIME 0RF methadone 5 mg Tablet 91 mg PO DAILY 0RF multivitamin [Daily-Ketan] Tablet 1 tab PO DAILY Qty: 30 0RF trazodone 50 mg Tablet 150 mg PO BEDTIME Qty: 0 0RF oxcarbazepine 300 mg Tablet 300 mg PO BID Qty: 14 4RF docusate sodium 100 mg Capsule 100 mg PO BID Qty: 14 4RF ziprasidone HCl 40 mg Capsule 40 mg PO BEDTIME Qty: 7 4RF cholecalciferol (vitamin D3) [Vitamin D3] 10 mcg (400 unit) Tablet 10 mcg PO DAILY Qty: 7 4RF naloxone [Narcan] 4 mg/actuation spray,non-aerosol 4 mg intranasal Q2M PRN (Reason: opioid overdose) Qty: 2 0RF Rx Instructions: spray 1 dose into ONE nostril; alternate nostrils w each dose until help arrives
[2021-12-23] MEDS: hydrOXYzine HCL 50 MG TABLET PO (13:51)
--- NOTE | 2021-12-23 14:04 | PC.NURSE ---
[facility] CONSULT SENT
[2021-12-23 15:51] VITALS: BP 117/66; PULSE 82; RESP 18; TEMP 36.6; O2SAT 100
[2021-12-23 16:20] LABS: MANUAL DIFF FLAG NO
[2021-12-23 16:24] LABS: Basophils Percent Auto 0.9 % (0-2); Eosinophils Absolute Auto 0.1 X10*3/uL (0.0-0.4); Eosinophils Percent Auto 2.2 % (0-4); Hematocrit 38.9 % (37.0-47.0); Hemoglobin 12.9 g/dl (12.0-16.0); Imm Gran Abs Auto 0.02 X10*3/uL (0.00-0.03); Imm Gran Pct Auto 0.4 % (0.0-0.4); Lymphocytes Absolute Auto 1.5 X10*3/uL (1.2-4.9); Lymphocytes Percent Auto 32.4 % (20-40); Mean Corpuscular HGB Conc 33.2 g/dl (31.0-35.0); Mean Corpuscular Volume 84.6 fL (80.0-98.0); Mean Platelet Volume 9.3 fL (9.4-12.3); Monocytes Absolute Auto 0.4 X10*3/uL (0.1-1.2); Monocytes Percent Auto 8.9 % (2-11); Neutrophils Absolute Auto 2.6 x10*3/uL (2.0-8.3); Neutrophils Percent Auto 55.2 % (45-73); Platelet Count 190 X10*3/uL (160-400); White Blood Count 4.6 X10*3/uL (4.8-10.8)
[2021-12-23] MEDS: LORazepam 1 MG TABLET 2 MG PO (16:31)
[2021-12-23] MEDS: Acetaminophen 325 MG TABLET 650 MG PO (16:31)
[2021-12-23 16:39] LABS: Alanine Aminotransferase 72 U/L (0-31); Alkaline Phosphatase 63 U/L (39-117); Anion Gap 11 (12-20); Aspartate Amino Transferase 60 U/L (5-31); Bilirubin Total 0.6 mg/dL (0.0-1.0); Blood Urea Nitrogen 18 mg/dL (9-16); Calcium 8.7 mg/dL (8.4-10.2); Carbon Dioxide 29 mmol/L (22-29); Chloride 101 mmol/L (96-108); Creatinine Clr Calc Pharmacy 85.5; Estimated Glomerular Filt Rate > 60; Glucose Random 111 mg/dL (60-115); Potassium 3.7 mmol/L (3.3-5.1); Sodium 137 mmol/L (135-145); Total Protein 7.5 g/dL (6.5-8.0)
[2021-12-23 16:43] LABS: Ethanol < 10 mg/dL
--- NOTE | 2021-12-23 16:52 | PC.NURSE ---
This RN calling [facility] for update. States that [facility] crisis steam flattener will be out within the next hour.
--- NOTE | 2021-12-23 16:53 | PC.NURSE ---
late entry for 1600: pt complaining of withdrawal from ETOH. Provider aware and ordering ativan PO. Pt was not tachipnic but did have slight tremor of hands and tongue. steady on feet. last drink was this am aprox 9am. states she's had hx of withdrawal sz in the past.
--- NOTE | 2021-12-23 23:04 | MHC.CARE ---
CARE team met with pt for evaluation. Pt expressed feeling paranoid and feeling as though people are following her . Pt did not appear paranoid during evaluation. Pt states her has been fighting with her and she has been on a cocaine binge since d/c. Pt was discharged from on 12/18 and states since d/c she relapsed, has not been sleeping or eating because of her ongoing use. Pt expressed that she has been confused and states that she has these symptoms when she is using as well as not, but reports they are more intense when she is. Pt denies SI, HI, AH, VH. She reports her mood as depressed, flat affect. She appears tired and withdrawn. Pt states she has been taking her medications with no improvement. Pt reports feeling confused and manic (very up and down). Pt requests to be readmitted to as she feels she signed herself out too soon. After reviewing records, pt was admitted recently for the same presentation. Pt was treated and started on a good medication regimen. She signed a 3 day. Pt was discharged 5 days ago and states she has been medication compliant with no improvement. T/w provided her education on how she needs to give time to allow her medication to work and attempt to refrain from using drugs. Pt wants to be readmitted- I spoke to Jodee Winston who also reviewed her chart and agreed that pt will not benefit from an admission, but recommends detox. Pt was positive for Fentanyl, cocaine and THC. Pt was not satisfied with this idea once presented and states that detox is not going to work because the reason she is doing drugs is because her medications aren't working. Pt also states I am not safe to go to detox When asked her to further explain why she reports do I need to try and kill myself for help . Pt's mood escalates and not happy with the plan but states she will be willing to speak with the recovery team tomorrow to explore detox options. Dr. Orosco is in support of plan.
--- NOTE | 2021-12-24 05:59 | PC.NURSE ---
Patient slept through the night, no distress observed/reported, asymptomatic of withdrawal, behavior appropriate and non concerning, patient was assessed by Care Team, disposition health coach referral for detox bed search, provider agreement with plan, med rec completed/pending provider's approval, will continue to monitor.
[2021-12-24 06:54] VITALS: RESP 20
--- NOTE | 2021-12-24 07:22 | PC.NURSE ---
patient appears to remain asleep at present respirations are even and unlabored patient appears in no distress
[2021-12-24 07:42] VITALS: BP 103/68; PULSE 87; RESP 16; TEMP 36.8; O2SAT 100
--- NOTE | 2021-12-24 08:26 | PC.NURSE ---
attempted to call clinic for verification of methadone, clinic appears to be closed.
--- NOTE | 2021-12-24 09:28 | MHC.RECOVSUP ---
Recovery Support note: Patient is a 36 year old [place] speaking female who presented to [facility] ED due to anxiety, paranoia and substance use. This press writer met with patient to discuss substance use and recovery. Patient is requesting to leave at this time and declines ATS referrals. Patient reports she is supported by her methadone clinic and that they can refer her to detox if she wants to get into treatment. Patient declines resources. Discussed case with ED Staff.
== END 2021-12-24 09:21 | disposition home or self-care (01) ==
PROVIDERS: Emergency Provider Emergency Medicine Emergency Medical Services; PCP Family Medicine
DX: F41.9 Anxiety disorder, unspecified (principal); F31.9 Bipolar disorder, unspecified; Z20.822 Contact with and (suspected) exposure to COVID-19; F43.10 Post-traumatic stress disorder, unspecified; F11.20 Opioid dependence, uncomplicated; F12.90 Cannabis use, unspecified, uncomplicated; Z79.899 Other long term (current) drug therapy
CPT/HCPCS: 36415; 80053; 80307; 81001; 81025; 82077; 85025; 87635; 99285

== ENCOUNTER 2022-01-08 00:48 | Emergency (ER) | payer OTHER, SELFPAY ==
[2022-01-08] VITALS (8 sets, daily range): BP systolic 84–156; BP diastolic 36–85; PULSE 58–76; RESP 13–17; TEMP 36.7–37.1; O2SAT 95–100; BMI 23.5
--- NOTE | 2022-01-08 00:53 | ECG_ITS ---
Test Reason : overdose Blood Pressure : / mmHG Vent. Rate : 062 BPM Atrial Rate : 062 BPM P-R Int : 140 ms QRS Dur : 084 ms QT Int : 430 ms P-R-T Axes : 060 080 062 degrees QTc Int : 436 ms Normal sinus rhythm Normal ECG When compared with ECG of 16-DEC-2021 11:02, No significant change was found Referred By: Mya Sapp Electronically Signed By:SHANNA PRICE MD
--- NOTE | 2022-01-08 00:56 | ED.OVERDOSE ---
HPI - Overdose General Chief Complaint: Overdose Stated Complaint: POLYSUBSTANCE Time Seen by Provider: 01/08/22 00:53 Source: patient Mode of arrival: EMS Limitations: no limitations History of Present Illness HPI Narrative: reportedly at 1015 states she ingested her 's medications though EMS found no empty packets IN EACH PACKET THEIR CONTAINS: baclofen 20mg gabapentin 800mg lisinopril 20mg naproxen 500mg ropinirole 4mg MVI SHE STATES SHE INGESTED 8 PACKAGES OF MEDICINE WITH THIS IN SI ATTEMPT - she also did IV heroin complaint: intentional overdose Onset (ago): hour(s) (1015PM on 01/07/22) Intent: suicide attempt How Overdose Was Discovered: called family/friend Context: Intentional Overdose: relationship problems Associated symptoms: depression Treatments Prior to Arrival: none Related Data Home Medications Medication Instructions Recorded Confirmed methadone 5 mg tablet 91 mg PO DAILY 12/16/21 12/23/21 cyclobenzaprine 10 mg tablet 1 tab PO TID PRN 12/24/21 12/24/21 docusate sodium 100 mg capsule 1 cap PO BID 12/24/21 12/24/21 multivitamin (One Daily 1 tab PO DAILY 12/24/21 12/24/21 Multivitamin) trazodone 150 mg tablet 1 tab PO BEDTIME 12/24/21 12/24/21 Allergies Allergy/AdvReac Type Severity Reaction Status Date / Time codeine [CODEINE] Allergy Intermediate RASH Verified 11/25/20 14:32 quetiapine [From SEROQUEL] Allergy Intermediate RESTLESS Verified 11/25/20 14:32 LEG SYNDROME Review of Systems Review of Systems: Constitutional : No Fever, No Chills ENT/Mouth : No Ear Pain, No Nasal Congestion, No sore throat Eyes: No Eye Pain, No Swelling, No Redness Cardiovascular : No Chest Pain, No SOB Respiratory : No Cough, No Sputum, No Dyspnea Gastrointestinal : No Nausea, No Vomiting, No Diarrhea, No Hematochezia, No Melena Genitourinary : No Dysuria, No Urinary Frequency, No Hematuria Musculoskeletal : No Myalgias Skin : No Skin Lesions, No rash Neuro : No Weakness, No Numbness, No Paresthesias, No Dizziness, No Headache Psych : positive Anxiety, positive Depression, positive SI no HI Heme/Lymph: No Lymphadenopathy Endocrine : No Polyuria, No Polydipsia All other systems reviewed and are negative PMFSH Past Medical History Attestation statement: The following information was validated with the patient. Medical History Alcohol use disorder, moderate, dependence Asthma Bipolar disorder with psychotic features Hepatitis C Opioid use disorder PTSD (post-traumatic stress disorder) Stimulant use disorder Substance abuse Surgical History H/O: hysterectomy Social History Social History Household Members: Spouse and Other Household Members Other:: 's drug dealer Housing: Apartment Do you presently have visiting nurse or other home services: No Alcohol intake: current Patient Tobacco Use Status: Tobacco use Unknown Second Hand Smoke Exposure: Yes Substance Use Type: Crack/Cocaine, Marijuana and Opiates Advance Directives: No Patient : No service: No Sexual orientation: Did not discuss Physical Exam Vital Signs: Vital Signs: Last Vital Signs Temp 98.3 F 01/08/22 00:55 Pulse 59 01/08/22 01:57 Resp 13 01/08/22 01:57 BP 84/36 L 01/08/22 01:57 Pulse Ox 98 01/08/22 01:57 BMI result Body Mass Index 23.5 Appearance: slightly sedating. Oriented X3. No acute distress. Eyes: Pupils equal, round and reactive to light. ENT: Pharynx mildly dry MM Neck: Normal inspection. Neck supple. CVS: Normal heart rate and rhythm. Pulses normal. Respiratory: No respiratory distress. Breath sounds normal. Abdomen: Soft and non-tender. Skin: Skin warm and dry. Normal skin color. Normal skin turgor. Track julien noted on extremities Extremities: No lower extremity edema. No calf ttp Neuro: Oriented X 3. No motor deficit. No sensory deficit. Course Course Course Narrative: signed out to Dr. Pablo pending further workup and observation, poison control states that observe 6 to 8 hours given baclofen overdose, monitor on tele. will section patient given SI attempt able to tolerate charcoal. BP low and more somnolent IV narcan ordered - good response, patient very upset about narcan but she was not able to be woken up and she became hypotensive to 70s due to overdoses, RR 7 MDM - Overdose MDM Narrative Medical decision making narrative: 36 yo female with hx of PTSD, bipolar, polysubstance abuse reports SI with multiple medications including baclofen, gabapentin, lisinopril, naproxen, ropinirole along with IV heroin. At this time her BP is slightly low but she is alert and not tachycardic. At this time will obtain tox labs, EKG, IVF x 2L. Will consult poison control as well. Once medically cleared needs evaluation for psychiatry. Lab Data Result diagrams: 01/08/22 01:13 01/08/22 01:13 Labs: Lab Results 01/08/22 01/08/22 01/08/22 Range/Units 01:13 01:13 01:13 WBC 6.5 (4.8-10.8) X10*3/uL RBC 4.44 (4.20-5.50) X10*6/uL Hgb 12.6 (12.0-16.0) g/dl Hct 37.9 (37.0-47.0) % MCV 85.4 (80.0-98.0) fL MCH 28.4 (27.0-33.0) pg MCHC 33.2 (31.0-35.0) g/dl RDW 13.3 (11.0-16.0) % Plt Count 189 (160-400) X10*3/uL MPV 8.8 L (9.4-12.3) fL Immature Gran % (Auto) 0.2 (0.0-0.4) % Neut % (Auto) 62.0 (45-73) % Lymph % (Auto) 28.5 (20-40) % [place] % (Auto) 6.7 (2-11) % Eos % (Auto) 2.1 (0-4) % Baso % (Auto) 0.5 (0-2) % Lymph # (Auto) 1.9 (1.2-4.9) X10*3/uL [place] # (Auto) 0.4 (0.1-1.2) X10*3/uL Eos # (Auto) 0.1 (0.0-0.4) X10*3/uL Baso # (Auto) 0.0 (0.0-0.2) X10*3/uL Abs Immat Gran (auto) 0.01 (0.00-0.03) X10*3/uL Absolute Neuts (auto) 4.1 (2.0-8.3) x10*3/uL Absolute Nucleated RBC 0.000 (0.0-0.012) X10*3/uL Nucleated RBC % (auto) 0.0 (0.0-0.2) /100WBC PT (9.9-13.0) SEC INR (0.9-1.1) VBG pH (7.32-7.43) VBG pCO2 mmHg VBG pO2 mmHg VBG HCO3 (22-26) mmol/L VBG O2 Saturation % VBG Base Excess mmol/L Sodium 138 (135-145) mmol/L Potassium 3.3 (3.3-5.1) mmol/L Chloride 104 (96-108) mmol/L Carbon Dioxide 26 (22-29) mmol/L Anion Gap 11 L (12-20) BUN 19 H (9-16) mg/dL Creatinine 0.74 (0.5-1.4) mg/dL Estim Creat Clear Calc 92.7 Estimated GFR > 60 Random Glucose 94 (60-115) mg/dL Lactic Acid (0.5-2.0) mmol/L Calcium 8.9 (8.4-10.2) mg/dL Magnesium 2.1 (1.6-2.6) mg/dL Total Bilirubin 0.5 (0.0-1.0) mg/dL Direct Bilirubin 0.2 (0.0-0.5) mg/dL AST 35 H D (5-31) U/L ALT 38 H (0-31) U/L Alkaline Phosphatase 60 (39-117) U/L Total Protein 7.1 (6.5-8.0) g/dL Albumin 3.7 (3.5-5.0) g/dL Specimen Comment Ethyl Alcohol mg/dL COVID-19 (CHARLY) Negative (Negative) COVID-19 Clin Com See Note 01/08/22 01/08/22 01/08/22 Range/Units 01:13 01:13 01:13 WBC (4.8-10.8) X10*3/uL RBC (4.20-5.50) X10*6/uL Hgb (12.0-16.0) g/dl Hct (37.0-47.0) % MCV (80.0-98.0) fL MCH (27.0-33.0) pg MCHC (31.0-35.0) g/dl RDW (11.0-16.0) % Plt Count (160-400) X10*3/uL MPV (9.4-12.3) fL Immature Gran % (Auto) (0.0-0.4) % Neut % (Auto) (45-73) % Lymph % (Auto) (20-40) % [place] % (Auto) (2-11) % Eos % (Auto) (0-4) % Baso % (Auto) (0-2) % Lymph # (Auto) (1.2-4.9) X10*3/uL [place] # (Auto) (0.1-1.2) X10*3/uL Eos # (Auto) (0.0-0.4) X10*3/uL Baso # (Auto) (0.0-0.2) X10*3/uL Abs Immat Gran (auto) (0.00-0.03) X10*3/uL Absolute Neuts (auto) (2.0-8.3) x10*3/uL Absolute Nucleated RBC (0.0-0.012) X10*3/uL Nucleated RBC % (auto) (0.0-0.2) /100WBC PT 12.8 (9.9-13.0) SEC INR 1.1 (0.9-1.1) VBG pH (7.32-7.43) VBG pCO2 mmHg VBG pO2 mmHg VBG HCO3 (22-26) mmol/L VBG O2 Saturation % VBG Base Excess mmol/L Sodium (135-145) mmol/L Potassium (3.3-5.1) mmol/L Chloride (96-108) mmol/L Carbon Dioxide (22-29) mmol/L Anion Gap (12-20) BUN (9-16) mg/dL Creatinine (0.5-1.4) mg/dL Estim Creat Clear Calc Estimated GFR Random Glucose (60-115) mg/dL Lactic Acid 0.6 (0.5-2.0) mmol/L Calcium (8.4-10.2) mg/dL Magnesium (1.6-2.6) mg/dL Total Bilirubin (0.0-1.0) mg/dL Direct Bilirubin (0.0-0.5) mg/dL AST (5-31) U/L ALT (0-31) U/L Alkaline Phosphatase (39-117) U/L Total Protein (6.5-8.0) g/dL Albumin (3.5-5.0) g/dL Specimen Comment Ethyl Alcohol < 10 mg/dL COVID-19 (CHARLY) (Negative) COVID-19 Clin Com 01/08/22 01/08/22 Range/Units 01:16 01:44 WBC (4.8-10.8) X10*3/uL RBC (4.20-5.50) X10*6/uL Hgb (12.0-16.0) g/dl Hct (37.0-47.0) % MCV (80.0-98.0) fL MCH (27.0-33.0) pg MCHC (31.0-35.0) g/dl RDW (11.0-16.0) % Plt Count (160-400) X10*3/uL MPV (9.4-12.3) fL Immature Gran % (Auto) (0.0-0.4) % Neut % (Auto) (45-73) % Lymph % (Auto) (20-40) % [place] % (Auto) (2-11) % Eos % (Auto) (0-4) % Baso % (Auto) (0-2) % Lymph # (Auto) (1.2-4.9) X10*3/uL [place] # (Auto) (0.1-1.2) X10*3/uL Eos # (Auto) (0.0-0.4) X10*3/uL Baso # (Auto) (0.0-0.2) X10*3/uL Abs Immat Gran (auto) (0.00-0.03) X10*3/uL Absolute Neuts (auto) (2.0-8.3) x10*3/uL Absolute Nucleated RBC (0.0-0.012) X10*3/uL Nucleated RBC % (auto) (0.0-0.2) /100WBC PT (9.9-13.0) SEC INR (0.9-1.1) VBG pH 7.40 (7.32-7.43) VBG pCO2 47 mmHg VBG pO2 82 mmHg VBG HCO3 29 H (22-26) mmol/L VBG O2 Saturation 98.0 % VBG Base Excess 3.9 mmol/L Sodium (135-145) mmol/L Potassium (3.3-5.1) mmol/L Chloride (96-108) mmol/L Carbon Dioxide (22-29) mmol/L Anion Gap (12-20) BUN (9-16) mg/dL Creatinine (0.5-1.4) mg/dL Estim Creat Clear Calc Estimated GFR Random Glucose (60-115) mg/dL Lactic Acid (0.5-2.0) mmol/L Calcium (8.4-10.2) mg/dL Magnesium (1.6-2.6) mg/dL Total Bilirubin (0.0-1.0) mg/dL Direct Bilirubin (0.0-0.5) mg/dL AST (5-31) U/L ALT (0-31) U/L Alkaline Phosphatase (39-117) U/L Total Protein (6.5-8.0) g/dL Albumin (3.5-5.0) g/dL Specimen Comment DELAY Ethyl Alcohol mg/dL COVID-19 (CHARLY) (Negative) COVID-19 Clin Com ECG Data Attestation: I personally reviewed and interpreted this ECG as follows: ECG interpretation time: 01:06 Interpretation: Rate: 62 Rhythm: NSR Y[place]: normal Normal P waves. Normal ANDREINA. Normal QRS complex. ST T wave : normal no JOSÉ ANTONIO qTC: normal prior studies: no acute ischemia The study has been interpreted contemporaneously by me. . Critical Care Time Critical Care Time Critical Care Time: Yes Total Critical Care Time: 45 Attestation: consult to poison control, 2L of IVF I attest to this time spent taking care of the patient Discharge Plan Discharge Clinical Impression: Opioid use disorder Overdose Qualifiers: Encounter type: initial encounter Injury intent: intentional self-harm Qualified Code(s): T50.902A - Poisoning by unspecified drugs, medicaments and biological substances, intentional self-harm, initial encounter Patient Disposition: Still a Patient Prescriptions: No Action multivitamin [One Daily Multivitamin] Tablet 1 tab PO DAILY 0RF cyclobenzaprine 10 mg tablet 1 tab PO TID PRN (Reason: muscle spasm) 0RF trazodone 150 mg tablet 1 tab PO BEDTIME 0RF docusate sodium 100 mg capsule 1 cap PO BID 0RF methadone 5 mg Tablet 91 mg PO DAILY 0RF
[2022-01-08] MEDS: 0.9 % Sodium Chloride 1,000 ML 999 ML IVCONT ×2 (01:04→01:58)
[2022-01-08] MEDS: Activated charcoaL 50 GM/240 ML ORAL.SUSP PO (01:18)
[2022-01-08 01:19] LABS: MANUAL DIFF FLAG NO
[2022-01-08 01:21] LABS: Basophils Percent Auto 0.5 % (0-2); Eosinophils Absolute Auto 0.1 X10*3/uL (0.0-0.4); Eosinophils Percent Auto 2.1 % (0-4); Hematocrit 37.9 % (37.0-47.0); Hemoglobin 12.6 g/dl (12.0-16.0); Imm Gran Abs Auto 0.01 X10*3/uL (0.00-0.03); Imm Gran Pct Auto 0.2 % (0.0-0.4); Lymphocytes Absolute Auto 1.9 X10*3/uL (1.2-4.9); Lymphocytes Percent Auto 28.5 % (20-40); Mean Corpuscular HGB Conc 33.2 g/dl (31.0-35.0); Mean Corpuscular Hemoglobin 28.4 pg (27.0-33.0); Mean Corpuscular Volume 85.4 fL (80.0-98.0); Mean Platelet Volume 8.8 fL (9.4-12.3); Monocytes Absolute Auto 0.4 X10*3/uL (0.1-1.2); Monocytes Percent Auto 6.7 % (2-11); Neutrophils Absolute Auto 4.1 x10*3/uL (2.0-8.3); Platelet Count 189 X10*3/uL (160-400); Red Blood Count 4.44 X10*6/uL (4.20-5.50); Red Cell Distribution Width 13.3 % (11.0-16.0); White Blood Count 6.5 X10*3/uL (4.8-10.8)
[2022-01-08 01:25] LABS: VBG Base Excess 3.9 mmol/L; VBG HCO3 29 mmol/L (22-26); VBG pCO2 47 mmHg; VBG pO2 82 mmHg
[2022-01-08 01:28] LABS: Venous Blood Gas Refer to POC result
[2022-01-08 01:29] LABS: INTERNATIONAL NORM RATIO 1.1 (0.9-1.1); Prothrombin Time 12.8 SEC (9.9-13.0)
[2022-01-08 01:34] LABS: Lactic Acid 0.6 mmol/L (0.5-2.0)
[2022-01-08 01:36] LABS: COVID-19 Test Negative (Negative)
[2022-01-08 01:38] LABS: Ethanol < 10 mg/dL
[2022-01-08 01:44] LABS: Alanine Aminotransferase 38 U/L (0-31); Albumin Level 3.7 g/dL (3.5-5.0); Alkaline Phosphatase 60 U/L (39-117); Anion Gap 11 (12-20); Aspartate Amino Transferase 35 U/L (5-31); Bilirubin Direct 0.2 mg/dL (0.0-0.5); Bilirubin Total 0.5 mg/dL (0.0-1.0); Blood Urea Nitrogen 19 mg/dL (9-16); Calcium 8.9 mg/dL (8.4-10.2); Carbon Dioxide 26 mmol/L (22-29); Chloride 104 mmol/L (96-108); Creatinine Clr Calc Pharmacy 92.7; Estimated Glomerular Filt Rate > 60; Glucose Random 94 mg/dL (60-115); Magnesium 2.1 mg/dL (1.6-2.6); Potassium 3.3 mmol/L (3.3-5.1); Sodium 138 mmol/L (135-145); Total Protein 7.1 g/dL (6.5-8.0)
[2022-01-08 01:45] LABS: Delay - Chemistry DELAY
--- NOTE | 2022-01-08 01:50 | PC.NURSE ---
Pt alert with stimuli and able to answer questions appropriately, lethargic otherwise. Pt drank activated charcoal per MD orders without issues, consumed in 10 minutes. Pt on 2 liters supplemental O2 with O2 sat at 98%. BP hypotensive, MD aware 2 liters fluid running.
[2022-01-08] MEDS: Naloxone HCl 2 MG/2 ML SYRINGE 1 MG IVPUSH (02:05)
[2022-01-08] MEDS: ondansetron HCL 4 MG/2 ML VIAL IVPUSH (02:05)
[2022-01-08 02:46] LABS: Acetaminophen LAB < 1 mcg/mL (<30); Salicylate < 5.0 mg/dL (15-30)
--- NOTE | 2022-01-08 04:27 | PC.NURSE ---
pt had multiple bowel movements in the bed. Carl ESPINO, MHT Doris and this PCT cleaned pt with soapy water and towels. Put a makeshift diaper. New linen on bed and blanket on pt. Pt also tried to rip out IV Carl and I wrapped with gauze to prevent pt from ripping it out.
--- NOTE | 2022-01-08 07:21 | PC.NURSE ---
rn report received from jaiden miranda moved to room [facility]. a/o x 3 no sob/mariaelena noted. pt is requesting her methadone states that she gets her methadone 96mg from [facility].
--- NOTE | 2022-01-08 08:45 | PC.NURSE ---
bhn at bedside pt aware of plan of care.
--- NOTE | 2022-01-08 09:30 | PHA.MEDREC ---
Pharmacy Consult ? Medication Reconciliation Pharmacy has completed the medication reconciliation. Patient reported all medications. RN to confirm methadone dose with clinic. Patient is report a slightly higher dose then when she was last here. Danielle Colbert, ShajiD
--- NOTE | 2022-01-08 11:02 | PC.NURSE ---
This nurse attempted to call methadone dosing clinic in [place] [phone] and had to leave a message due to clinic being closed.
[2022-01-08 12:29] LABS: Amphetamine Screen Urine Not Detected (Not Detect); Barbiturates, Urine Not Detected (Not Detect); Benzodiazepines Screen Urine Not Detected (Not Detect); Cannabinoid Screen Urine POSITIVE (Not Detect); Cocaine Screen Urine POSITIVE (Not Detect); Fentanyl, urine POSITIVE (Not Detect); Opiate Screen Urine POSITIVE (Not Detect); Phencyclidine Screen Urine Not Detected (Not Detect)
[2022-01-08] MEDS: methADONE HCl 20 MG/2 ML ORAL.CONC 50 MG PO (13:03)
--- NOTE | 2022-01-08 15:53 | PC.NURSE ---
Patient information faxed over to [facility] [phone]
--- NOTE | 2022-01-08 18:03 | PC.NURSE ---
Patient received methadone dose today message was left for methadone clinic to verify dose awaiting call back. patient is also awaiting [facility] eval. will continue to monitor.
[2022-01-08] MEDS: cloNIDine HCL 0.1 MG TABLET PO (20:21)
--- NOTE | 2022-01-08 20:44 | PM.EVENT ---
Event Note Date of Service: 01/08/22 Event Note: Contacted by recovery team clinician, call had been placed to verfiy patient's methadone dose with [facility] clinic in [place]. Dose had previously been reported to be 96mg daily, as it was being titrated up. On admit note dated 12/17/21, it was noted to be 90mg daily. She had reported that she has missed two days' dosing of her methadone. Methadone 50mg ordered as a 1X dose today. Hydroxyzine prn, clonidine 0.1mg ordered prn for anxiety/withdrawals.
[2022-01-08] MEDS: traZODone HCL 50 MG TABLET 150 MG PO (22:55)
[2022-01-08] MEDS: Ziprasidone 40 MG CAPSULE PO (22:56)
[2022-01-09 00:44] VITALS: BP 129/58; PULSE 67; RESP 18; TEMP 36.8; O2SAT 100
--- NOTE | 2022-01-09 05:56 | PC.NURSE ---
PT VSS, PT appears to be sleeping on 15 minute safety checks. PT calm and cooperative.
--- NOTE | 2022-01-09 08:04 | MHC.RECOVSUP ---
Recovery Support note: This director underwriter sales confirmed patient's methadone dose with [facility]. Patient last dosed on 01/05 and received 96mg according to Alea. Clinic will not be open tomorrow on 01/10. If patient is discharged today, patient will need to return to the hospital on 01/10 to get dosed.
--- NOTE | 2022-01-09 08:07 | PC.NURSE ---
TAWANDA FROM CARE TEAM HAS CONFIRMED METHADONE DOSE, WILL FAX TO PHARMACY
[2022-01-09 08:28] VITALS: BP 117/63; PULSE 69; TEMP 37.1; O2SAT 99
[2022-01-09] MEDS: cloNIDine HCL 0.1 MG TABLET PO (09:02)
[2022-01-09] MEDS: OXcarbazepine 300 MG TABLET PO (09:09)
[2022-01-09] MEDS: Multivitamin TABLET 1 TAB PO (09:09)
[2022-01-09] MEDS: Ibuprofen 600 MG TABLET PO (09:16)
[2022-01-09] MEDS: methADONE HCl 20 MG/2 ML ORAL.CONC 95 MG PO (10:54)
--- NOTE | 2022-01-09 12:11 | MHC.RECOVSUP ---
Recovery Support note: Patient discharged prior to last dose letter being provided. Methadone clinic is closed tomorrow and patient will have to return to ED for dosing. Methadone dose was verified with clinic today. Patient was given 96mg of methadone today. Discussed this with patient.
== END 2022-01-09 12:02 | disposition home or self-care (01) ==
PROVIDERS: Emergency Provider Emergency Medicine
DX: T42.8X2A Poisoning by antiparkinsonism drugs and other central muscle-tone depressants, intentional self-harm, initial encounter (principal); T42.6X2A Poisoning by other antiepileptic and sedative-hypnotic drugs, intentional self-harm, initial encounter; T46.4X2A Poisoning by angiotensin-converting-enzyme inhibitors, intentional self-harm, initial encounter; T39.312A Poisoning by propionic acid derivatives, intentional self-harm, initial encounter; T40.1X2A Poisoning by heroin, intentional self-harm, initial encounter; I95.9 Hypotension, unspecified; R40.0 Somnolence; Y92.039 Unspecified place in apartment as the place of occurrence of the external cause; F11.20 Opioid dependence, uncomplicated; Z20.822 Contact with and (suspected) exposure to COVID-19; F32.A Depression, unspecified; F43.10 Post-traumatic stress disorder, unspecified; B19.20 Unspecified viral hepatitis C without hepatic coma; F10.20 Alcohol dependence, uncomplicated; Y90.0 Blood alcohol level of less than 20 mg/100 ml; Z72.89 Other problems related to lifestyle; Z63.0 Problems in relationship with spouse or partner
CPT/HCPCS: 36415; 80048; 80076; 80143; 80179; 80307; 82077; 82803; 83605; 83735; 85025; 85610; 87635; 93005; 96361; 96374; 96375; 99285; 99291; J2405

== ENCOUNTER 2022-02-23 11:20 | Emergency (ER) | payer OTHER, SELFPAY ==
[2022-02-23 11:34] VITALS: BP 176/95; PULSE 106; O2SAT 100
== END 2022-02-23 14:20 | disposition left against medical advice (07) ==
LOC: HO.ED 14:16
PROVIDERS: Emergency Provider Emergency Medicine
DX: T14.8XXA Other injury of unspecified body region, initial encounter (principal); W57.XXXA Bitten or stung by nonvenomous insect and other nonvenomous arthropods, initial encounter; Y93.9 Activity, unspecified; Y92.9 Unspecified place or not applicable; Y99.9 Unspecified external cause status
CPT/HCPCS: 99281

== ENCOUNTER 2022-03-08 09:59 | Inpatient (IN) | payer OTHER, SELFPAY ==
[2022-03-08] VITALS (7 sets, daily range): BP systolic 92–120; BP diastolic 44–82; PULSE 56–96; RESP 10–20; TEMP 36.8–37; O2SAT 93–99; BMI 26.5
--- NOTE | ~2022-03-08 | CT_ITS ---
EXAMINATION: CT HEAD WITHOUT CONTRAST CLINICAL INFORMATION: Question of head trauma, rule out intracranial abnormality. COMPARISON: None TECHNIQUE: Contiguous axial imaging was performed from the skull base to vertex without intravenous administration of contrast. Coronal and sagittal reformatted images were obtained. This CT examination was performed using dose optimization techniques as appropriate, variously including the following: *Automated exposure control *Adjustment of mA and/or kV according to patient size (this includes techniques or standardized protocols for targeted exams where dose is matched to indication/reason for exam; i.e. extremities or head) *Use of iterative reconstruction technique DLP: 641 mGy-cm FINDINGS: There is no evidence of acute intracranial hemorrhage or territorial infarction. No abnormal mass effect or midline shift is seen. Sage to white matter differentiation is well preserved. No extra-axial fluid collections are identified. The ventricles are normal in size. There is no abnormal attenuation within the brain parenchyma. The osseous structures and soft tissues are normal. The mastoid air cells and visualized portions of the paranasal sinuses are well aerated. CT/CT head/brain wo con IMPRESSION: No acute intracranial pathology.
--- NOTE | ~2022-03-08 | XR_ITS ---
EXAMINATION: XR ANKLE, RIGHT XR NASAL BONES XR FACIAL BONES CLINICAL INFORMATION: Trauma. COMPARISON: None TECHNIQUE: 4 views of the right ankle, and 5 views of the facial and nasal bones. FINDINGS: There is no evidence of acute fracture or dislocation of the right ankle. No significant soft tissue swelling is appreciated. Ankle mortise appears intact. No definite ankle effusion is seen. Joint spaces appear maintained. There is a minimally displaced and nonangulated fracture about the distal nasal bones. There appears be some mild soft tissue swelling and I cannot differentiate between an acute or chronic fracture. The paranasal sinuses and mastoid air cells are aerated. No other facial bone fracture is appreciated. No definite maxillary spine fracture is seen. XR/XR ankle RT min 3V IMPRESSION: Minimally displaced nasal bone fracture.
--- NOTE | ~2022-03-08 | XR_ITS ---
EXAMINATION: XR ANKLE, RIGHT XR NASAL BONES XR FACIAL BONES CLINICAL INFORMATION: Trauma. COMPARISON: None TECHNIQUE: 4 views of the right ankle, and 5 views of the facial and nasal bones. FINDINGS: There is no evidence of acute fracture or dislocation of the right ankle. No significant soft tissue swelling is appreciated. Ankle mortise appears intact. No definite ankle effusion is seen. Joint spaces appear maintained. There is a minimally displaced and nonangulated fracture about the distal nasal bones. There appears be some mild soft tissue swelling and I cannot differentiate between an acute or chronic fracture. The paranasal sinuses and mastoid air cells are aerated. No other facial bone fracture is appreciated. No definite maxillary spine fracture is seen. XR/XR nasal bones min 3V IMPRESSION: Minimally displaced nasal bone fracture.
--- NOTE | ~2022-03-08 | XR_ITS ---
EXAMINATION: XR ANKLE, RIGHT XR NASAL BONES XR FACIAL BONES CLINICAL INFORMATION: Trauma. COMPARISON: None TECHNIQUE: 4 views of the right ankle, and 5 views of the facial and nasal bones. FINDINGS: There is no evidence of acute fracture or dislocation of the right ankle. No significant soft tissue swelling is appreciated. Ankle mortise appears intact. No definite ankle effusion is seen. Joint spaces appear maintained. There is a minimally displaced and nonangulated fracture about the distal nasal bones. There appears be some mild soft tissue swelling and I cannot differentiate between an acute or chronic fracture. The paranasal sinuses and mastoid air cells are aerated. No other facial bone fracture is appreciated. No definite maxillary spine fracture is seen. XR/XR facial bones <3V IMPRESSION: Minimally displaced nasal bone fracture.
--- NOTE | 2022-03-08 10:31 | ECG_ITS ---
Test Reason : overdose Blood Pressure : / mmHG Vent. Rate : 055 BPM Atrial Rate : 055 BPM P-R Int : 142 ms QRS Dur : 080 ms QT Int : 536 ms P-R-T Axes : 075 080 077 degrees QTc Int : 512 ms Sinus bradycardia Nonspecific ST and T wave abnormality Prolonged QT Abnormal ECG When compared with ECG of 08-JAN-2022 01:00, QT has lengthened Referred By: Melanie Moon Electronically Signed By:SHANNA PRICE MD
--- NOTE | 2022-03-08 10:36 | ED.GENADULT ---
HPI - General Adult General Chief complaint: Psychiatric Symptoms <GREYSON Cortes - Last Filed: 03/08/22 18:21> Stated complaint: SI ATTEMPT BY OD LAST NIGHT,PSYCH EVAL,NOSE BLEED <GREYSON Cortes - Last Filed: 03/08/22 18:21> Time Seen by Provider: 03/08/22 10:22 <GREYSON Cortes - Last Filed: 03/08/22 18:21> Source: patient and EMS <GREYSON Cortes - Last Filed: 03/08/22 18:21> Mode of arrival: EMS <GREYSON Cortes - Last Filed: 03/08/22 18:21> History of Present Illness HPI narrative: 36-year-old female with a past medical history of ETOH abuse, asthma, bipolar, hepatitis-C, substance abuse, PTSD, BIBA after SI attempt last night. Admits to taking 8-10 pills of 25mg of Lisinopril, 8 pills of Baclofen, 8 pills of Gabapentin, heroin, and cocaine around 20:00 last night. Patient reports she just needs to sleep this off. Admits to hitting head multiple times from nodding off with residual epistaxis. Also reports nausea and vomiting. Denies CP/SOB, abdominal pain. History limited secondary to patient's acute mental status <GREYSON Cortes - Last Filed: 03/08/22 18:21> Onset (ago): hour(s) <GREYSON Cortes - Last Filed: 03/08/22 18:21> Related Data Home medications: Home Medications Medication Instructions Recorded Confirmed cyclobenzaprine 10 mg tablet 1 tab PO BID PRN 12/24/21 01/08/22 docusate sodium 100 mg capsule 1 cap PO BID PRN 12/24/21 01/08/22 multivitamin (One Daily 1 tab PO DAILY 12/24/21 01/08/22 Multivitamin) cholecalciferol (vitamin D3) 10 1 tab PO DAILY 01/08/22 01/08/22 mcg (400 unit) tablet (Vitamin D3) oxcarbazepine 300 mg tablet 1 tab PO BID 01/08/22 01/08/22 trazodone 150 mg tablet 1 tab PO BEDTIME 01/08/22 01/08/22 ziprasidone HCl 40 mg capsule 40 mg PO BEDTIME 01/08/22 01/08/22 methadone 10 mg/5 mL oral solution 96 mg PO DAILY 01/09/22 01/09/22 <GREYSON Cortes - Last Filed: 03/08/22 18:21> Allergies/adverse reactions: Allergies Allergy/AdvReac Type Severity Reaction Status Date / Time codeine [CODEINE] Allergy Intermediate RASH Verified 11/25/20 14:32 quetiapine [From SEROQUEL] Allergy Intermediate RESTLESS Verified 11/25/20 14:32 LEG SYNDROME <GREYSON Cortes - Last Filed: 03/08/22 18:21> Review of Systems Review of Systems: ROS limited secondary to patients acute mental status ENT: +epistaxis Psych: + Depression, +SI <GREYSON Cortes - Last Filed: 03/08/22 18:21> Yes all other systems are reviewed and are negative <GREYSON Cortes - Last Filed: 03/08/22 18:21> [facility] Past Medical History Attestation statement: The following information was validated with the patient. <GREYSON Cortes - Last Filed: 03/08/22 18:21> Medical History: Medical History Alcohol use disorder, moderate, dependence Asthma Bipolar disorder with psychotic features Hepatitis C Opioid use disorder PTSD (post-traumatic stress disorder) Stimulant use disorder Substance abuse <GREYSON Cortes - Last Filed: 03/08/22 18:21> Surgical History: Surgical History H/O: hysterectomy <GREYSON Cortes - Last Filed: 03/08/22 18:21> Social History Social History: Social History Household Members: Spouse and Other Household Members Other:: 's drug dealer Housing: Apartment Do you presently have visiting nurse or other home services: No Alcohol intake: current Patient Tobacco Use Status: Tobacco use Unknown Second Hand Smoke Exposure: Yes Substance Use Type: Crack/Cocaine, Marijuana and Opiates Advance Directives: No Advance Directives Information Provided: No Guardian: No service: No Sexual orientation: Did not discuss <GREYSON Cortes Last Filed: 03/08/22 18:21> Physical Exam ED Vital Signs: Vital Signs - 24 hr 03/08/22 10:07 03/08/22 14:19 03/08/22 17:32 Temperature 98.6 F 98.5 F Pulse Rate 84 56 71 Respiratory Rate 18 16 16 Blood Pressure 113/70 92/45 L 97/46 L Pulse Oximetry 95 96 96 03/08/22 18:33 03/08/22 19:17 03/08/22 20:14 Temperature Pulse Rate 68 80 73 Respiratory Rate 16 10 L 20 Blood Pressure 94/62 98/44 L 98/46 L Pulse Oximetry 97 96 03/08/22 22:46 Temperature 98.3 F Pulse Rate 67 Respiratory Rate 16 Blood Pressure 120/79 Pulse Oximetry 99 BMI result Body Mass Index 26.5 <GREYSON Cortes Last Filed: 03/08/22 18:21> Vital Signs - 24 hr 03/08/22 10:07 03/08/22 14:19 03/08/22 17:32 Temperature 98.6 F 98.5 F Pulse Rate 84 56 71 Respiratory Rate 18 16 16 Blood Pressure 113/70 92/45 L 97/46 L Pulse Oximetry 95 96 96 03/08/22 18:33 03/08/22 19:17 03/08/22 20:14 Temperature Pulse Rate 68 80 73 Respiratory Rate 16 10 L 20 Blood Pressure 94/62 98/44 L 98/46 L Pulse Oximetry 97 96 03/08/22 22:46 Temperature 98.3 F Pulse Rate 67 Respiratory Rate 16 Blood Pressure 120/79 Pulse Oximetry 99 BMI result Body Mass Index 26.5 <GREYSON Walsh - Last Filed: 03/09/22 00:05> Const Other: + lethargic, under the influence, arousable to sternal rub <GREYSON Cortes Last Filed: 03/08/22 18:21> HENMT Head: Yes normal to inspection, Yes atraumatic, No Cano's sign and No raccoon eyes <GREYSON Cortes Last Filed: 03/08/22 18:21> Ears: hearing grossly normal bilaterally <GREYSON Cortes - Last Filed: 03/08/22 18:21> General nose exam: Normal external nose present and Epistaxis present (Anterior, slow bleed) on the right <Melanie Moon PA - Last Filed: 03/08/22 18:21> Face and sinus: Yes normal facial exam <Melanie Moon PA - Last Filed: 03/08/22 18:21> Eyes General: appearance normal, both eyes and all related structures <Melanie Moon PA - Last Filed: 03/08/22 18:21> Pupils: Dilated pupils bilaterally <Melanie Moon PA - Last Filed: 03/08/22 18:21> Neck Neck: Yes normal visual inspection and Yes no meningeal signs <Melanie Moon PA - Last Filed: 03/08/22 18:21> Resp Effort & Inspection: normal respiratory effort and no respiratory distress <Melanie Moon PA - Last Filed: 03/08/22 18:21> Auscultation: clear to auscultation bilaterally <Melanie Moon PA - Last Filed: 03/08/22 18:21> Cardio Rate: regular rate <Melanie Moon PA - Last Filed: 03/08/22 18:21> Heart sounds: S1 normal heart sound present and S2 normal heart sound present <Melanie Moon PA - Last Filed: 03/08/22 18:21> GI Inspection: Yes normal to inspection <Melanie Moon PA - Last Filed: 03/08/22 18:21> Palpation (GI): Soft to palpation, nontender, no guarding and not rigid <Melanie Moon PA - Last Filed: 03/08/22 18:21> General: Yes no CVA tenderness <Melanie Moon PA - Last Filed: 03/08/22 18:21> Back/Spine/Pelvis Other: No midline cervical, thoracic, or lumbar spinous tenderness <Melanie Moon PA - Last Filed: 03/08/22 18:21> Back: no CVA tenderness <Melanie Moon PA - Last Filed: 03/08/22 18:21> Skin Rashes: no rashes <Melanie Moon PA - Last Filed: 03/08/22 18:21> Wounds: no wounds <GREYSON Cortes Last Filed: 03/08/22 18:21> Neuro General: no meningeal signs <GREYSON Cortes Last Filed: 03/08/22 18:21> Extrem General: Yes normal to inspection <GREYSON Cortes Last Filed: 03/08/22 18:21> Psych Thought content: Suicidality present <GREYSON Cortes Last Filed: 03/08/22 18:21> Course Course Course Narrative: -patient given Narcan for all respiratory rate with positive result -patient now very agitated > 1240--attempted to elope ED. 1 mg of p.o. Ativan ordered. Section 12 signed and in patient's chart -no leukocytosis. BUN 24. AST/ALT acute on chronically elevated. Salicylate/acetaminophen and ethanol negative -EKG sinus bradycardia rate of 55 with prolonged QTC to 512 >> IV magnesium ordered -Poision control called back & recommended keeping potassium above 4.0, magnesium above 2.0 and repeating LFTs with patients prolonged QTC -repeat LFTs without much change CT head/brain wo con IMPRESSION: No acute intracranial pathology. -patient is sleeping comfortably. 1720- Physician observation initiated as patient needs more time for clinical sobriety and crisis evaluation -repeat EKG with QTC of 517, will continue to monitor -1800-- ED care transferred to GREYSON Disla pending clinical sobreity, CAO, and Crisis eval <GREYSON Cortes Last Filed: 03/08/22 18:21> Reevaluation(s) Reevaluation #1: Repeat EKG is normal. Repeat labs are normal. Spoke with Poison control who states patient is medically cleared. patient will be admitted to psych inpatient. <GREYSON Walsh - Last Filed: 03/09/22 00:05> Time: 00:04 <GREYSON Walsh Last Filed: 03/09/22 00:05> Medical Decision Making MDM Narrative Medical decision making narrative: 36-year-old female with a past medical history of ETOH abuse, asthma, bipolar, hepatitis-C, substance abuse, PTSD, BIBA after SI attempt last night. Admits to taking 8-10 pills of 25mg of Lisinopril, 8 pills of Baclofen, 8 pills of Gabapentin, heroin, and cocaine around 20:00 last night. On exam vital signs stable, lethargic, arousable to sternal rub, no evidence of trauma, anterior epistaxis to right nare. Concern for OD and head trauma. Contacted poison Control recommended labs including tox screen, and observation for bradycardia, seizures, airway precautions and hypotension Plan: EKG, labs, CAO, head CT, observe and reassess <GREYSON Cortes - Last Filed: 03/08/22 18:21> Medical Records Medical records reviewed: Yes I reviewed the patient's medical records. <GREYSON Cortes - Last Filed: 03/08/22 18:21> Lab Data Lab results reviewed: Yes I reviewed the patient's lab results. <GREYSON Cortes - Last Filed: 03/08/22 18:21> Result diagrams: : 03/08/22 11:02 03/08/22 21:04 <GREYSON Cortes - Last Filed: 03/08/22 18:21> Labs: Lab Results 03/08/22 03/08/22 03/08/22 Range/Units 11:02 11:02 11:02 WBC 8.5 (4.8-10.8) X10*3/uL RBC 5.51 H D (4.20-5.50) X10*6/uL Hgb 15.5 D (12.0-16.0) g/dl Hct 46.7 D (37.0-47.0) % MCV 84.8 (80.0-98.0) fL MCH 28.1 (27.0-33.0) pg MCHC 33.2 (31.0-35.0) g/dl RDW 13.2 (11.0-16.0) % Plt Count 200 (160-400) X10*3/uL MPV 9.7 (9.4-12.3) fL Immature Gran % (Auto) 0.4 (0.0-0.4) % Neut % (Auto) 78.7 H (45-73) % Lymph % (Auto) 14.2 L (20-40) % Stafford % (Auto) 6.1 (2-11) % Eos % (Auto) 0.4 (0-4) % Baso % (Auto) 0.2 (0-2) % Lymph # (Auto) 1.2 (1.2-4.9) X10*3/uL Stafford # (Auto) 0.5 (0.1-1.2) X10*3/uL Eos # (Auto) 0.0 (0.0-0.4) X10*3/uL Baso # (Auto) 0.0 (0.0-0.2) X10*3/uL Abs Immat Gran (auto) 0.03 (0.00-0.03) X10*3/uL Absolute Neuts (auto) 6.7 (2.0-8.3) x10*3/uL Absolute Nucleated RBC 0.000 (0.0-0.012) X10*3/uL Nucleated RBC % (auto) 0.0 (0.0-0.2) /100WBC PT 11.1 (9.9-13.0) SEC INR 1.0 (0.9-1.1) APTT (24.1-38.0) SEC Sodium 142 (135-145) mmol/L Potassium 3.5 (3.3-5.1) mmol/L Chloride 106 (96-108) mmol/L Carbon Dioxide 24 (22-29) mmol/L Anion Gap 16 (12-20) BUN 24 H (9-16) mg/dL Creatinine 0.99 (0.5-1.4) mg/dL Estim Creat Clear Calc 71.3 Estimated GFR > 60 Random Glucose 89 (60-115) mg/dL Calcium 9.5 D (8.4-10.2) mg/dL Magnesium 2.3 (1.6-2.6) mg/dL Total Bilirubin 0.7 (0.0-1.0) mg/dL Direct Bilirubin 0.2 (0.0-0.5) mg/dL AST 62 H (5-31) U/L ALT 80 H (0-31) U/L Alkaline Phosphatase 74 D (39-117) U/L Total Protein 7.9 (6.5-8.0) g/dL Albumin 4.1 (3.5-5.0) g/dL Lipase 25 (8-78) U/L Beta HCG, Quant mIU/mL Salicylates < 5.0 L (15-30) mg/dL Acetaminophen < 1 (<30) mcg/mL Ethyl Alcohol mg/dL COVID-19 (CHARLY) (Negative) COVID-19 Clin Com 03/08/22 03/08/22 03/08/22 Range/Units 11:02 11:02 13:57 WBC (4.8-10.8) X10*3/uL RBC (4.20-5.50) X10*6/uL Hgb (12.0-16.0) g/dl Hct (37.0-47.0) % MCV (80.0-98.0) fL MCH (27.0-33.0) pg MCHC (31.0-35.0) g/dl RDW (11.0-16.0) % Plt Count (160-400) X10*3/uL MPV (9.4-12.3) fL Immature Gran % (Auto) (0.0-0.4) % Neut % (Auto) (45-73) % Lymph % (Auto) (20-40) % Stafford % (Auto) (2-11) % Eos % (Auto) (0-4) % Baso % (Auto) (0-2) % Lymph # (Auto) (1.2-4.9) X10*3/uL Stafford # (Auto) (0.1-1.2) X10*3/uL Eos # (Auto) (0.0-0.4) X10*3/uL Baso # (Auto) (0.0-0.2) X10*3/uL Abs Immat Gran (auto) (0.00-0.03) X10*3/uL Absolute Neuts (auto) (2.0-8.3) x10*3/uL Absolute Nucleated RBC (0.0-0.012) X10*3/uL Nucleated RBC % (auto) (0.0-0.2) /100WBC PT (9.9-13.0) SEC INR (0.9-1.1) APTT (24.1-38.0) SEC Sodium (135-145) mmol/L Potassium (3.3-5.1) mmol/L Chloride (96-108) mmol/L Carbon Dioxide (22-29) mmol/L Anion Gap (12-20) BUN (9-16) mg/dL Creatinine (0.5-1.4) mg/dL Estim Creat Clear Calc Estimated GFR Random Glucose (60-115) mg/dL Calcium (8.4-10.2) mg/dL Magnesium (1.6-2.6) mg/dL Total Bilirubin 0.8 (0.0-1.0) mg/dL Direct Bilirubin 0.2 (0.0-0.5) mg/dL AST 65 H (5-31) U/L ALT 79 H (0-31) U/L Alkaline Phosphatase 70 (39-117) U/L Total Protein 8.0 (6.5-8.0) g/dL Albumin 4.1 (3.5-5.0) g/dL Lipase (8-78) U/L Beta HCG, Quant < 2 mIU/mL Salicylates (15-30) mg/dL Acetaminophen (<30) mcg/mL Ethyl Alcohol < 10 mg/dL COVID-19 (CHARLY) (Negative) COVID-19 Clin Com 03/08/22 03/08/22 03/08/22 Range/Units 18:36 21:04 21:04 WBC (4.8-10.8) X10*3/uL RBC (4.20-5.50) X10*6/uL Hgb (12.0-16.0) g/dl Hct (37.0-47.0) % MCV (80.0-98.0) fL MCH (27.0-33.0) pg MCHC (31.0-35.0) g/dl RDW (11.0-16.0) % Plt Count (160-400) X10*3/uL MPV (9.4-12.3) fL Immature Gran % (Auto) (0.0-0.4) % Neut % (Auto) (45-73) % Lymph % (Auto) (20-40) % Stafford % (Auto) (2-11) % Eos % (Auto) (0-4) % Baso % (Auto) (0-2) % Lymph # (Auto) (1.2-4.9) X10*3/uL Stafford # (Auto) (0.1-1.2) X10*3/uL Eos # (Auto) (0.0-0.4) X10*3/uL Baso # (Auto) (0.0-0.2) X10*3/uL Abs Immat Gran (auto) (0.00-0.03) X10*3/uL Absolute Neuts (auto) (2.0-8.3) x10*3/uL Absolute Nucleated RBC (0.0-0.012) X10*3/uL Nucleated RBC % (auto) (0.0-0.2) /100WBC PT 11.6 (9.9-13.0) SEC INR 1.0 (0.9-1.1) APTT 33.7 (24.1-38.0) SEC Sodium 143 (135-145) mmol/L Potassium 4.1 (3.3-5.1) mmol/L Chloride 109 H (96-108) mmol/L Carbon Dioxide 26 (22-29) mmol/L Anion Gap 12 (12-20) BUN 20 H (9-16) mg/dL Creatinine 0.80 (0.5-1.4) mg/dL Estim Creat Clear Calc 88.2 Estimated GFR > 60 Random Glucose 98 (60-115) mg/dL Calcium 8.6 D (8.4-10.2) mg/dL Magnesium 2.5 (1.6-2.6) mg/dL Total Bilirubin 0.5 (0.0-1.0) mg/dL Direct Bilirubin (0.0-0.5) mg/dL AST 49 H (5-31) U/L ALT 62 H (0-31) U/L Alkaline Phosphatase 65 (39-117) U/L Total Protein 6.9 (6.5-8.0) g/dL Albumin 3.7 (3.5-5.0) g/dL Lipase (8-78) U/L Beta HCG, Quant mIU/mL Salicylates < 5.0 L (15-30) mg/dL Acetaminophen < 1 (<30) mcg/mL Ethyl Alcohol mg/dL COVID-19 (CHARLY) Negative (Negative) COVID-19 Clin Com See Note 03/08/22 Range/Units 21:04 WBC (4.8-10.8) X10*3/uL RBC (4.20-5.50) X10*6/uL Hgb (12.0-16.0) g/dl Hct (37.0-47.0) % MCV (80.0-98.0) fL MCH (27.0-33.0) pg MCHC (31.0-35.0) g/dl RDW (11.0-16.0) % Plt Count (160-400) X10*3/uL MPV (9.4-12.3) fL Immature Gran % (Auto) (0.0-0.4) % Neut % (Auto) (45-73) % Lymph % (Auto) (20-40) % Stafford % (Auto) (2-11) % Eos % (Auto) (0-4) % Baso % (Auto) (0-2) % Lymph # (Auto) (1.2-4.9) X10*3/uL Stafford # (Auto) (0.1-1.2) X10*3/uL Eos # (Auto) (0.0-0.4) X10*3/uL Baso # (Auto) (0.0-0.2) X10*3/uL Abs Immat Gran (auto) (0.00-0.03) X10*3/uL Absolute Neuts (auto) (2.0-8.3) x10*3/uL Absolute Nucleated RBC (0.0-0.012) X10*3/uL Nucleated RBC % (auto) (0.0-0.2) /100WBC PT (9.9-13.0) SEC INR (0.9-1.1) APTT (24.1-38.0) SEC Sodium (135-145) mmol/L Potassium (3.3-5.1) mmol/L Chloride (96-108) mmol/L Carbon Dioxide (22-29) mmol/L Anion Gap (12-20) BUN (9-16) mg/dL Creatinine (0.5-1.4) mg/dL Estim Creat Clear Calc Estimated GFR Random Glucose (60-115) mg/dL Calcium (8.4-10.2) mg/dL Magnesium (1.6-2.6) mg/dL Total Bilirubin (0.0-1.0) mg/dL Direct Bilirubin (0.0-0.5) mg/dL AST (5-31) U/L ALT (0-31) U/L Alkaline Phosphatase (39-117) U/L Total Protein (6.5-8.0) g/dL Albumin (3.5-5.0) g/dL Lipase (8-78) U/L Beta HCG, Quant mIU/mL Salicylates (15-30) mg/dL Acetaminophen (<30) mcg/mL Ethyl Alcohol < 10 mg/dL COVID-19 ([facility]) (Negative) COVID-19 Clin Com <GREYSON Cortes - Last Filed: 03/08/22 18:21> Lab Results 03/08/22 03/08/22 03/08/22 Range/Units 11:02 11:02 11:02 WBC 8.5 (4.8-10.8) X10*3/uL RBC 5.51 H D (4.20-5.50) X10*6/uL Hgb 15.5 D (12.0-16.0) g/dl Hct 46.7 D (37.0-47.0) % MCV 84.8 (80.0-98.0) fL MCH 28.1 (27.0-33.0) pg MCHC 33.2 (31.0-35.0) g/dl RDW 13.2 (11.0-16.0) % Plt Count 200 (160-400) X10*3/uL MPV 9.7 (9.4-12.3) fL Immature Gran % (Auto) 0.4 (0.0-0.4) % Neut % (Auto) 78.7 H (45-73) % Lymph % (Auto) 14.2 L (20-40) % Stafford % (Auto) 6.1 (2-11) % Eos % (Auto) 0.4 (0-4) % Baso % (Auto) 0.2 (0-2) % Lymph # (Auto) 1.2 (1.2-4.9) X10*3/uL Stafford # (Auto) 0.5 (0.1-1.2) X10*3/uL Eos # (Auto) 0.0 (0.0-0.4) X10*3/uL Baso # (Auto) 0.0 (0.0-0.2) X10*3/uL Abs Immat Gran (auto) 0.03 (0.00-0.03) X10*3/uL Absolute Neuts (auto) 6.7 (2.0-8.3) x10*3/uL Absolute Nucleated RBC 0.000 (0.0-0.012) X10*3/uL Nucleated RBC % (auto) 0.0 (0.0-0.2) /100WBC PT 11.1 (9.9-13.0) SEC INR 1.0 (0.9-1.1) APTT (24.1-38.0) SEC Sodium 142 (135-145) mmol/L Potassium 3.5 (3.3-5.1) mmol/L Chloride 106 (96-108) mmol/L Carbon Dioxide 24 (22-29) mmol/L Anion Gap 16 (12-20) BUN 24 H (9-16) mg/dL Creatinine 0.99 (0.5-1.4) mg/dL Estim Creat Clear Calc 71.3 Estimated GFR > 60 Random Glucose 89 (60-115) mg/dL Calcium 9.5 D (8.4-10.2) mg/dL Magnesium 2.3 (1.6-2.6) mg/dL Total Bilirubin 0.7 (0.0-1.0) mg/dL Direct Bilirubin 0.2 (0.0-0.5) mg/dL AST 62 H (5-31) U/L ALT 80 H (0-31) U/L Alkaline Phosphatase 74 D (39-117) U/L Total Protein 7.9 (6.5-8.0) g/dL Albumin 4.1 (3.5-5.0) g/dL Lipase 25 (8-78) U/L Beta HCG, Quant mIU/mL Salicylates < 5.0 L (15-30) mg/dL Acetaminophen < 1 (<30) mcg/mL Ethyl Alcohol mg/dL COVID-19 ([facility]LY) (Negative) COVID-19 Clin Com 04/19/22 04/19/22 04/19/22 Range/Units 11:02 11:02 13:57 WBC (4.8-10.8) X10*3/uL RBC (4.20-5.50) X10*6/uL Hgb (12.0-16.0) g/dl Hct (37.0-47.0) % MCV (80.0-98.0) fL MCH (27.0-33.0) pg MCHC (31.0-35.0) g/dl RDW (11.0-16.0) % Plt Count (160-400) X10*3/uL MPV (9.4-12.3) fL Immature Gran % (Auto) (0.0-0.4) % Neut % (Auto) (45-73) % Lymph % (Auto) (20-40) % Stafford % (Auto) (2-11) % Eos % (Auto) (0-4) % Baso % (Auto) (0-2) % Lymph # (Auto) (1.2-4.9) X10*3/uL Stafford # (Auto) (0.1-1.2) X10*3/uL Eos # (Auto) (0.0-0.4) X10*3/uL Baso # (Auto) (0.0-0.2) X10*3/uL Abs Immat Gran (auto) (0.00-0.03) X10*3/uL Absolute Neuts (auto) (2.0-8.3) x10*3/uL Absolute Nucleated RBC (0.0-0.012) X10*3/uL Nucleated RBC % (auto) (0.0-0.2) /100WBC PT (9.9-13.0) SEC INR (0.9-1.1) APTT (24.1-38.0) SEC Sodium (135-145) mmol/L Potassium (3.3-5.1) mmol/L Chloride (96-108) mmol/L Carbon Dioxide (22-29) mmol/L Anion Gap (12-20) BUN (9-16) mg/dL Creatinine (0.5-1.4) mg/dL Estim Creat Clear Calc Estimated GFR Random Glucose (60-115) mg/dL Calcium (8.4-10.2) mg/dL Magnesium (1.6-2.6) mg/dL Total Bilirubin 0.8 (0.0-1.0) mg/dL Direct Bilirubin 0.2 (0.0-0.5) mg/dL AST 65 H (5-31) U/L ALT 79 H (0-31) U/L Alkaline Phosphatase 70 (39-117) U/L Total Protein 8.0 (6.5-8.0) g/dL Albumin 4.1 (3.5-5.0) g/dL Lipase (8-78) U/L Beta HCG, Quant < 2 mIU/mL Salicylates (15-30) mg/dL Acetaminophen (<30) mcg/mL Ethyl Alcohol < 10 mg/dL COVID-19 ([facility]) (Negative) COVID-19 Clin Com 03/08/22 03/08/22 03/08/22 Range/Units 18:36 21:04 21:04 WBC (4.8-10.8) X10*3/uL RBC (4.20-5.50) X10*6/uL Hgb (12.0-16.0) g/dl Hct (37.0-47.0) % MCV (80.0-98.0) fL MCH (27.0-33.0) pg MCHC (31.0-35.0) g/dl RDW (11.0-16.0) % Plt Count (160-400) X10*3/uL MPV (9.4-12.3) fL Immature Gran % (Auto) (0.0-0.4) % Neut % (Auto) (45-73) % Lymph % (Auto) (20-40) % Stafford % (Auto) (2-11) % Eos % (Auto) (0-4) % Baso % (Auto) (0-2) % Lymph # (Auto) (1.2-4.9) X10*3/uL Stafford # (Auto) (0.1-1.2) X10*3/uL Eos # (Auto) (0.0-0.4) X10*3/uL Baso # (Auto) (0.0-0.2) X10*3/uL Abs Immat Gran (auto) (0.00-0.03) X10*3/uL Absolute Neuts (auto) (2.0-8.3) x10*3/uL Absolute Nucleated RBC (0.0-0.012) X10*3/uL Nucleated RBC % (auto) (0.0-0.2) /100WBC PT 11.6 (9.9-13.0) SEC INR 1.0 (0.9-1.1) APTT 33.7 (24.1-38.0) SEC Sodium 143 (135-145) mmol/L Potassium 4.1 (3.3-5.1) mmol/L Chloride 109 H (96-108) mmol/L Carbon Dioxide 26 (22-29) mmol/L Anion Gap 12 (12-20) BUN 20 H (9-16) mg/dL Creatinine 0.80 (0.5-1.4) mg/dL Estim Creat Clear Calc 88.2 Estimated GFR > 60 Random Glucose 98 (60-115) mg/dL Calcium 8.6 D (8.4-10.2) mg/dL Magnesium 2.5 (1.6-2.6) mg/dL Total Bilirubin 0.5 (0.0-1.0) mg/dL Direct Bilirubin (0.0-0.5) mg/dL AST 49 H (5-31) U/L ALT 62 H (0-31) U/L Alkaline Phosphatase 65 (39-117) U/L Total Protein 6.9 (6.5-8.0) g/dL Albumin 3.7 (3.5-5.0) g/dL Lipase (8-78) U/L Beta HCG, Quant mIU/mL Salicylates < 5.0 L (15-30) mg/dL Acetaminophen < 1 (<30) mcg/mL Ethyl Alcohol mg/dL COVID-19 ([facility]) Negative (Negative) COVID-19 Clin Com See Note 03/08/22 Range/Units 21:04 WBC (4.8-10.8) X10*3/uL RBC (4.20-5.50) X10*6/uL Hgb (12.0-16.0) g/dl Hct (37.0-47.0) % MCV (80.0-98.0) fL MCH (27.0-33.0) pg MCHC (31.0-35.0) g/dl RDW (11.0-16.0) % Plt Count (160-400) X10*3/uL MPV (9.4-12.3) fL Immature Gran % (Auto) (0.0-0.4) % Neut % (Auto) (45-73) % Lymph % (Auto) (20-40) % Stafford % (Auto) (2-11) % Eos % (Auto) (0-4) % Baso % (Auto) (0-2) % Lymph # (Auto) (1.2-4.9) X10*3/uL Stafford # (Auto) (0.1-1.2) X10*3/uL Eos # (Auto) (0.0-0.4) X10*3/uL Baso # (Auto) (0.0-0.2) X10*3/uL Abs Immat Gran (auto) (0.00-0.03) X10*3/uL Absolute Neuts (auto) (2.0-8.3) x10*3/uL Absolute Nucleated RBC (0.0-0.012) X10*3/uL Nucleated RBC % (auto) (0.0-0.2) /100WBC PT (9.9-13.0) SEC INR (0.9-1.1) APTT (24.1-38.0) SEC Sodium (135-145) mmol/L Potassium (3.3-5.1) mmol/L Chloride (96-108) mmol/L Carbon Dioxide (22-29) mmol/L Anion Gap (12-20) BUN (9-16) mg/dL Creatinine (0.5-1.4) mg/dL Estim Creat Clear Calc Estimated GFR Random Glucose (60-115) mg/dL Calcium (8.4-10.2) mg/dL Magnesium (1.6-2.6) mg/dL Total Bilirubin (0.0-1.0) mg/dL Direct Bilirubin (0.0-0.5) mg/dL AST (5-31) U/L ALT (0-31) U/L Alkaline Phosphatase (39-117) U/L Total Protein (6.5-8.0) g/dL Albumin (3.5-5.0) g/dL Lipase (8-78) U/L Beta HCG, Quant mIU/mL Salicylates (15-30) mg/dL Acetaminophen (<30) mcg/mL Ethyl Alcohol < 10 mg/dL COVID-19 ([facility]) (Negative) COVID-19 Clin Com <GREYSON Walsh - Last Filed: 03/09/22 00:05> ECG Data Attestation: I personally reviewed and interpreted this ECG as follows: <GREYSON Cortes - Last Filed: 03/08/22 18:21> Prior ECG tracings: available for review <GREYSON Cortes Last Filed: 03/08/22 18:21> Interpretation: EKG sinus bradycardia rate of 55. DE interval 142. Prolonged QTC of 512. <GREYSON Cortes Last Filed: 03/08/22 18:21> Discharge Plan Discharge Clinical Impression: Overdose, Suicide attempt <GREYSON Cortes Last Filed: 03/08/22 18:21> Patient Disposition: Still a Patient <GREYSON Cortes Last Filed: 03/08/22 18:21> Prescriptions: No Action multivitamin [One Daily Multivitamin] Tablet 1 tab PO DAILY 0RF cyclobenzaprine 10 mg tablet 1 tab PO BID PRN (Reason: muscle spasm) 0RF docusate sodium 100 mg capsule 1 cap PO BID PRN (Reason: Constipation) 0RF oxcarbazepine 300 mg tablet 1 tab PO BID 0RF trazodone 150 mg tablet 1 tab PO BEDTIME 0RF ziprasidone HCl 40 mg capsule 40 mg PO BEDTIME 0RF cholecalciferol (vitamin D3) [Vitamin D3] 10 mcg (400 unit) tablet 1 tab PO DAILY 0RF methadone 10 mg/5 mL Solution 96 mg PO DAILY 0RF <GREYSON Cortes Last Filed: 03/08/22 18:21>
[2022-03-08 11:12] LABS: MANUAL DIFF FLAG NO
[2022-03-08 11:13] LABS: Basophils Percent Auto 0.2 % (0-2); Eosinophils Percent Auto 0.4 % (0-4); Hematocrit 46.7 % (37.0-47.0); Hemoglobin 15.5 g/dl (12.0-16.0); Imm Gran Abs Auto 0.03 X10*3/uL (0.00-0.03); Imm Gran Pct Auto 0.4 % (0.0-0.4); Lymphocytes Absolute Auto 1.2 X10*3/uL (1.2-4.9); Lymphocytes Percent Auto 14.2 % (20-40); Mean Corpuscular HGB Conc 33.2 g/dl (31.0-35.0); Mean Corpuscular Hemoglobin 28.1 pg (27.0-33.0); Mean Corpuscular Volume 84.8 fL (80.0-98.0); Mean Platelet Volume 9.7 fL (9.4-12.3); Monocytes Absolute Auto 0.5 X10*3/uL (0.1-1.2); Monocytes Percent Auto 6.1 % (2-11); Neutrophils Absolute Auto 6.7 x10*3/uL (2.0-8.3); Neutrophils Percent Auto 78.7 % (45-73); Platelet Count 200 X10*3/uL (160-400); Red Blood Count 5.51 X10*6/uL (4.20-5.50); Red Cell Distribution Width 13.2 % (11.0-16.0); White Blood Count 8.5 X10*3/uL (4.8-10.8)
[2022-03-08 11:22] LABS: Prothrombin Time 11.1 SEC (9.9-13.0)
[2022-03-08 11:24] LABS: Ethanol < 10 mg/dL
[2022-03-08 11:33] LABS: HCG Quantitative < 2 mIU/mL
[2022-03-08] MEDS: Naloxone HCl 0.4 MG/ML VIAL IVPUSH (11:38)
[2022-03-08 11:54] LABS: Alanine Aminotransferase 80 U/L (0-31); Albumin Level 4.1 g/dL (3.5-5.0); Alkaline Phosphatase 74 U/L (39-117); Anion Gap 16 (12-20); Aspartate Amino Transferase 62 U/L (5-31); Bilirubin Direct 0.2 mg/dL (0.0-0.5); Bilirubin Total 0.7 mg/dL (0.0-1.0); Blood Urea Nitrogen 24 mg/dL (9-16); Calcium 9.5 mg/dL (8.4-10.2); Carbon Dioxide 24 mmol/L (22-29); Chloride 106 mmol/L (96-108); Creatinine Clr Calc Pharmacy 71.3; Estimated Glomerular Filt Rate > 60; Glucose Random 89 mg/dL (60-115); Lipase 25 U/L (8-78); Magnesium 2.3 mg/dL (1.6-2.6); Potassium 3.5 mmol/L (3.3-5.1); Sodium 142 mmol/L (135-145); Total Protein 7.9 g/dL (6.5-8.0)
[2022-03-08 12:07] LABS: Acetaminophen LAB < 1 mcg/mL (<30); Salicylate < 5.0 mg/dL (15-30)
[2022-03-08] MEDS: LORazepam 1 MG TABLET PO (12:43)
[2022-03-08] MEDS: Magnesium Sulfate/H2O 2 GM/50 ML PIGGYBACK IV (14:05)
[2022-03-08] MEDS: 0.9 % Sodium Chloride 1,000 ML 999 ML IV ×2 (14:15→18:29)
[2022-03-08] MEDS: Potassium Chloride Packet 20 MEQ PACKET 60 MEQ PO (14:17)
[2022-03-08 14:32] LABS: Alanine Aminotransferase 79 U/L (0-31); Albumin Level 4.1 g/dL (3.5-5.0); Alkaline Phosphatase 70 U/L (39-117); Aspartate Amino Transferase 65 U/L (5-31); Bilirubin Direct 0.2 mg/dL (0.0-0.5); Bilirubin Total 0.8 mg/dL (0.0-1.0)
--- NOTE | 2022-03-08 17:16 | ECG_ITS ---
Test Reason : REPEAT Blood Pressure : / mmHG Vent. Rate : 073 BPM Atrial Rate : 073 BPM P-R Int : 148 ms QRS Dur : 086 ms QT Int : 470 ms P-R-T Axes : 103 058 079 degrees QTc Int : 517 ms Poor data quality Normal sinus rhythm Prolonged QT Abnormal ECG When compared with ECG of 08-MAR-2022 10:44, No significant change was found Referred By: Melanie Moon Electronically Signed By:SHANNA PRICE MD
[2022-03-08 18:55] LABS: COVID-19 Test Negative (Negative)
--- NOTE | 2022-03-08 20:20 | ECG_ITS ---
Test Reason : REPEAT Blood Pressure : / mmHG Vent. Rate : 066 BPM Atrial Rate : 066 BPM P-R Int : 130 ms QRS Dur : 080 ms QT Int : 452 ms P-R-T Axes : 062 074 066 degrees QTc Int : 473 ms Normal sinus rhythm Normal ECG When compared with ECG of 08-MAR-2022 17:44, No significant change was found Referred By: Naif Meade Electronically Signed By:SHANNA PRICE MD
[2022-03-08 21:22] LABS: Prothrombin Time 11.6 SEC (9.9-13.0)
[2022-03-08 21:24] LABS: Ethanol < 10 mg/dL
[2022-03-08 21:25] LABS: Partial Thromboplastin Time 33.7 SEC (24.1-38.0)
[2022-03-08 21:28] LABS: Alanine Aminotransferase 62 U/L (0-31); Albumin Level 3.7 g/dL (3.5-5.0); Alkaline Phosphatase 65 U/L (39-117); Anion Gap 12 (12-20); Aspartate Amino Transferase 49 U/L (5-31); Bilirubin Total 0.5 mg/dL (0.0-1.0); Blood Urea Nitrogen 20 mg/dL (9-16); Calcium 8.6 mg/dL (8.4-10.2); Carbon Dioxide 26 mmol/L (22-29); Chloride 109 mmol/L (96-108); Creatinine Clr Calc Pharmacy 88.2; Estimated Glomerular Filt Rate > 60; Glucose Random 98 mg/dL (60-115); Magnesium 2.5 mg/dL (1.6-2.6); Potassium 4.1 mmol/L (3.3-5.1); Sodium 143 mmol/L (135-145); Total Protein 6.9 g/dL (6.5-8.0)
[2022-03-08 21:40] LABS: Acetaminophen LAB < 1 mcg/mL (<30); Salicylate < 5.0 mg/dL (15-30)
--- NOTE | 2022-03-08 22:35 | MHC.CARE ---
DIEGO Dalton approved 4 days of inpt admission starting 03/08 and ending 03/11, [id number]. UR should reach out to Marcie Wilkins [phone] for review on last covered day.
--- NOTE | 2022-03-08 23:48 | PC.NURSE ---
Report given to Brian ESPINO
[2022-03-09 00:32] LABS: Amphetamine Screen Urine Not Detected (Not Detect); Barbiturates, Urine Not Detected (Not Detect); Benzodiazepines Screen Urine Not Detected (Not Detect); Cannabinoid Screen Urine Not Detected (Not Detect); Cocaine Screen Urine POSITIVE (Not Detect); Fentanyl, urine POSITIVE (Not Detect); Opiate Screen Urine POSITIVE (Not Detect); Phencyclidine Screen Urine Not Detected (Not Detect)
--- NOTE | 2022-03-09 03:47 | PC.NURSE ---
Per M5 RN, awaiting pt to show up in their system prior to taking pt up.
[2022-03-09 04:25] VITALS: BP 127/75; PULSE 73; RESP 16; TEMP 36.6; O2SAT 96
--- NOTE | 2022-03-09 04:37 | PC.ADMIT ---
PT is a 36 year old female admitted to at 0425 on CV from [facility] [place]. PT calm and cooperative, but stating, 'I want to go to bed.' VSS T 97.8, O2 96%, R 16, P 73, BP 127/75. PT is known to from an admission in Nov/Dec 2021. PT was brought to ED by ambulance s/p intentional OD on 's medications, Baclofen, Gabapentin, and Lisinopril. PT tox screen + for opiates, fentanyl, and cocaine. PT A+O X 4. PT was given 1 mg of Ativan in ED at 1240 due to PT trying to elope. PT has a history of 3 past suicide attempts. PT denies SI/HI and A/VH at this time. PT is Covid -, Hep C +. Admission paperwork will be delayed until morning due to PT going to bed.
[2022-03-09 08:00] VITALS: PULSE 84
[2022-03-09] MEDS: OXcarbazepine 300 MG TABLET PO ×2 (08:17→19:47)
[2022-03-09] MEDS: LORazepam 1 MG TABLET PO ×5 (09:14→21:42)
[2022-03-09] MEDS: cloNIDine HCL 0.1 MG TABLET PO ×2 (09:15→19:47)
[2022-03-09] MEDS: Multivitamin TABLET 1 TAB PO (09:15)
[2022-03-09] MEDS: Thiamine HCL 100 MG TABLET PO (09:17)
--- NOTE | 2022-03-09 09:34 | P.EN_ITS ---
Event Note Date of Service: 03/09/22 Event Note: Addiction Note Consult requested to restart patients methadone following overdose requiring narcan Patient reported to be taking 105mg methadone QD, with last dose being 03/07 Chart reviewed, upon admission QT prolonged. Follow up EKG was WNL. Electrolytes WNL Recommendation to restart methadone (as long as patient no longer sedated) at outpatient dose as only only dose was missed. Recovery Support will follow up with patient later in the day as she was just a dmitted to psychiatric unit overnight. Provider aware
[2022-03-09] MEDS: methADONE HCl 20 MG/2 ML ORAL.CONC 105 MG PO (10:16)
[2022-03-09 14:38] VITALS: BP 91/53; PULSE 60
--- NOTE | 2022-03-09 14:59 | MHC.RECOVRN ---
Met with pt on [facility] to follow up regarding methadone administration. Consult had been placed to Addiction Medicine due to pt receiving Narcan IV on 03/08. Pts last methadone dose was 03/07, 105 mg. Pt did receive 105 mg this morning with positive effect. Pt denies withdrawal symptoms at this time. Briefly discussed recovery supports, provided pt with t/w contact information if needed. Discussed with Liz Stahl APRN.
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
[2022-03-09 17:26] VITALS: BP 106/55; PULSE 66; RESP 16; TEMP 36.1
[2022-03-09] MEDS: traZODone HCL 50 MG TABLET PO ×2 (19:47→21:20)
[2022-03-09 19:49] VITALS: BP 121/69; PULSE 83; RESP 16; TEMP 36.3
[2022-03-10] MEDS: hydrOXYzine HCL 25 MG TABLET PO ×2 (01:02→21:38)
[2022-03-10 07:00] VITALS: BMI 25.9
[2022-03-10 08:00] VITALS: PULSE 88
[2022-03-10] MEDS: OXcarbazepine 300 MG TABLET PO ×2 (08:02→19:17)
[2022-03-10] MEDS: LORazepam 1 MG TABLET PO ×4 (08:02→19:17)
[2022-03-10] MEDS: cloNIDine HCL 0.1 MG TABLET PO ×3 (08:02→19:16)
[2022-03-10] MEDS: Multivitamin TABLET 1 TAB PO (08:02)
[2022-03-10] MEDS: Thiamine HCL 100 MG TABLET PO (08:02)
[2022-03-10] MEDS: methADONE HCl 20 MG/2 ML ORAL.CONC 105 MG PO (08:03)
[2022-03-10 08:05] VITALS: BP 102/65; PULSE 88; RESP 18; TEMP 36.7; O2SAT 98
[2022-03-10 08:32] LABS: Estimated Average Glucose 94 mg/dL; Hemoglobin A1c % 4.9 %
[2022-03-10 08:49] LABS: Alanine Aminotransferase 59 U/L (0-31); Albumin Level 3.3 g/dL (3.5-5.0); Alkaline Phosphatase 57 U/L (39-117); Anion Gap 10 (12-20); Aspartate Amino Transferase 54 U/L (5-31); Bilirubin Direct 0.2 mg/dL (0.0-0.5); Bilirubin Total 0.4 mg/dL (0.0-1.0); Blood Urea Nitrogen 12 mg/dL (9-16); Calcium 8.9 mg/dL (8.4-10.2); Carbon Dioxide 29 mmol/L (22-29); Chloride 105 mmol/L (96-108); Creatinine Clr Calc Pharmacy 102.8; Estimated Glomerular Filt Rate > 60; Glucose Fasting 79 mg/dL (60-99); Potassium 4.4 mmol/L (3.3-5.1); Sodium 140 mmol/L (135-145); Total Protein 6.4 g/dL (6.5-8.0); Triglycerides 90 mg/dL
[2022-03-10 09:25] LABS: Cholesterol 139 mg/dL; HDL Cholesterol 37 mg/dL; LDL Cholesterol Calculated 84 mg/dl
[2022-03-10 14:21] VITALS: BP 95/55; PULSE 72
[2022-03-10 16:00] VITALS: PULSE 72
--- NOTE | 2022-03-10 17:45 | P.PNPSI_ITS ---
Subjective Subjective Date of Service: 03/10/22 Reason For Visit: Suicide Attempt by OD Subjective Notes: 3 Day (03/14/22) Healthcare Proxy: No Guardianship: No Medical Problems Affecting Mental Status: No Interim History: Reports poor sleep. Requests to re-start Doxepin 25 mg as by history it is very helpful Discussed decreasing Lorazepam to 1 mg bid which she agrees with Recovering, but feeling tired and anergic TDN 03/14, encouraged retraction. Medication Compliance: Yes Side effects from medications: Yes (sedation) Attending Groups: Intermittent Review of Systems Acute medical concerns: No Medical Review of Systems: unchanged Review of Systems Constitutional: Reports headache(s) Eyes: Reports no additional eye complaints Reports facial pain, Reports headache(s) and Reports nasal trauma Cardiovascular: Reports no additional cardiovascular complaints Respiratory: Reports no additional respiratory complaints Gastrointestinal: Reports no additional gastrointestinal complaints Genitourinary: Reports no additional female genitourinary complaints Musculoskeletal: Reports no additional musculoskeletal complaints Skin/Breast: Reports wounds (skin picking) Reports behavioral changes and Reports headache(s) Psychiatric: Reports abnormal sleep pattern, Reports anxiety, Reports behavioral changes, Reports change in appetite, Reports depression, Reports difficulty concentrating, Reports hopelessness, Reports irritability, Reports anhedonia, Reports mood swings and Reports suicidal ideation (denies) Endocrine: Reports no additional endocrine complaints Hematologic/Lymphatic: Reports no additional hematologic/lymphatic complaints Allergic/Immunologic: Reports no additional allergic/immunologic complaints Mental Status Exam Mental Status Exam Patient Appearance: Appropriate Patient Orientation: Person, Place, Time and Situation Level of Consciousness: Alert Patient Behavior: Cooperative Mood Description: Depressed and Anxious Affect Description: Flat Patient Cognition Impaired: No Ability to Follow Directions: Good Speech Pattern: Spontaneous Speech Memory Description: Intact Hallucinations: None Delusions: Not Present Perceptual Disturbances: Depersonalization Thought Process: Rumination Thought Content: positive for Circumstantial and positive for Perseveration Depressive Symptoms: Increased Anxiety, Insomnia, Difficulty Sleeping, Low Self Esteem and Difficulty Concentrating Abnormal Motor Activity Signs and Symptoms: Restlessness Judgement: Fair Diagnostics Vital Signs (24Hr): Vital Signs - 24 hr 03/09/22 19:49 03/10/22 08:05 03/10/22 14:21 Temperature 97.4 F 98.1 F Pulse Rate 83 88 72 Respiratory Rate 16 18 Blood Pressure 121/69 102/65 95/55 L Pulse Oximetry 98 BMI result Body Mass Index 25.9 Labs Results: 03/08/22 11:02 03/10/22 07:56 Labs: Laboratory Results - last 48 hr 03/08/22 03/08/22 03/08/22 18:36 21:04 21:04 PT 11.6 INR 1.0 APTT 33.7 Sodium 143 Potassium 4.1 Chloride 109 H Carbon Dioxide 26 Anion Gap 12 BUN 20 H Creatinine 0.80 Estim Creat Clear Calc 88.2 Estimated GFR > 60 Random Glucose 98 Fasting Glucose Estimat Average Glucose Hemoglobin A1c % Calcium 8.6 D Magnesium 2.5 Total Bilirubin 0.5 Direct Bilirubin AST 49 H ALT 62 H Alkaline Phosphatase 65 Total Protein 6.9 Albumin 3.7 Triglycerides Cholesterol LDL Cholesterol, Calc HDL Cholesterol Salicylates < 5.0 L Urine Opiates Screen Urine Fentanyl Screen Acetaminophen < 1 Ur Barbiturates Screen Ur Phencyclidine Scrn Ur Amphetamines Screen U Benzodiazepines Scrn Urine Cocaine Screen U Marijuana (THC) Screen Ethyl Alcohol COVID-19 ([facility]) Negative COVID-19 [employer] [facility] See Note 03/08/22 03/08/22 03/10/22 21:04 23:46 07:56 PT INR APTT Sodium 140 Potassium 4.4 Chloride 105 Carbon Dioxide 29 Anion Gap 10 L BUN 12 Creatinine 0.68 Estim Creat Clear Calc 102.8 Estimated GFR > 60 Random Glucose Fasting Glucose 79 Estimat Average Glucose Hemoglobin A1c % Calcium 8.9 Magnesium Total Bilirubin 0.4 Direct Bilirubin 0.2 AST 54 H ALT 59 H Alkaline Phosphatase 57 Total Protein 6.4 L Albumin 3.3 L Triglycerides 90 Cholesterol 139 LDL Cholesterol, Calc 84 HDL Cholesterol 37 Salicylates Urine Opiates Screen POSITIVE H Urine Fentanyl Screen POSITIVE H Acetaminophen Ur Barbiturates Screen Not Detected Ur Phencyclidine Scrn Not Detected Ur Amphetamines Screen Not Detected U Benzodiazepines Scrn Not Detected Urine Cocaine Screen POSITIVE H U Marijuana (THC) Screen Not Detected Ethyl Alcohol < 10 COVID-19 ([facility]) COVID-19 [employer] 03/10/22 07:56 PT INR APTT Sodium Potassium Chloride Carbon Dioxide Anion Gap BUN Creatinine Estim Creat Clear Calc Estimated GFR Random Glucose Fasting Glucose Estimat Average Glucose 94 Hemoglobin A1c % 4.9 Calcium Magnesium Total Bilirubin Direct Bilirubin AST ALT Alkaline Phosphatase Total Protein Albumin Triglycerides Cholesterol LDL Cholesterol, Calc HDL Cholesterol Salicylates Urine Opiates Screen Urine Fentanyl Screen Acetaminophen Ur Barbiturates Screen Ur Phencyclidine Scrn Ur Amphetamines Screen U Benzodiazepines Scrn Urine Cocaine Screen U Marijuana (THC) Screen Ethyl Alcohol COVID-19 ([facility]) COVID-19 [facility] Imaging Radiology Impressions: ITS Impressions Head CT 03/08/22 15:13 IMPRESSION: No acute intracranial pathology. Ankle X-Ray 03/09/22 14:37 IMPRESSION: Minimally displaced nasal bone fracture. Face X-Ray 03/09/22 14:37 IMPRESSION: Minimally displaced nasal bone fracture. Nasal Bones X-Ray 03/09/22 14:37 IMPRESSION: Minimally displaced nasal bone fracture. Medications Medications Current Medications Acetaminophen (Acetaminophen 325 Mg Tablet) 650 mg PO Q6H PRN PRN Reason: Headache/Pain Mild Scale (1-3) Al Hydroxide/Mg Hydroxide (Magnesium Hydrox/Alum Hydrox 30 Ml Oral.Susp) 30 ml PO Q6H PRN PRN Reason: Heartburn/Nausea Clonidine HCl (Clonidine Hcl 0.1 Mg Tablet) 0.1 mg PO TID [facility]; Protocol Last Admin: 03/10/22 14:21 Dose: Not Given Documented by: Hydroxyzine HCl (Hydroxyzine Hcl 25 Mg Tablet) 25 mg PO BEDTIME PRN PRN Reason: Anxiety Last Admin: 03/10/22 01:02 Dose: 25 mg Documented by: Lorazepam (Lorazepam 1 Mg Tablet) 1 mg PO TID [facility] Last Admin: 03/10/22 14:03 Dose: 1 mg Documented by: Lorazepam (Lorazepam 1 Mg Tablet) 1 mg PO Q6H PRN PRN Reason: withdrawal Last Admin: 03/09/22 21:42 Dose: 1 mg Documented by: Magnesium Hydroxide (Milk Of Magnesia 30 Ml Oral.Susp) 30 ml PO DAILY PRN PRN Reason: Constipation Methadone HCl (Methadone Hcl 20 Mg/2 Ml Oral.Conc) 105 mg PO DAILY [facility] Last Admin: 03/10/22 08:03 Dose: 105 mg Documented by: Multivitamins/Vitamin C (Multivitamin Tablet) 1 tab PO DAILY [facility] Last Admin: 03/10/22 08:02 Dose: 1 tab Documented by: Oxcarbazepine (Oxcarbazepine 300 Mg Tablet) 300 mg PO BID [facility] Last Admin: 03/10/22 08:02 Dose: 300 mg Documented by: Thiamine HCl (Thiamine Hcl 100 Mg Tablet) 100 mg PO DAILY [facility] Last Admin: 03/10/22 08:02 Dose: 100 mg Documented by: Trazodone HCl (Trazodone Hcl 50 Mg Tablet) 50 mg PO BEDTIME PRN PRN Reason: Insomnia Last Admin: 03/09/22 21:20 Dose: 50 mg Documented by: Allergies Allergies Allergy/AdvReac Type Severity Reaction Status Date / Time codeine [CODEINE] Allergy Intermediate RASH Verified 11/25/20 14:32 quetiapine [From SEROQUEL] Allergy Intermediate RESTLESS Verified 11/25/20 14:32 LEG SYNDROME Assessment & Plan Assessment & Plan (1) Bipolar disorder with psychotic features: Status: Acute Code(s): F31.9 - Bipolar disorder, unspecified (2) PTSD (post-traumatic stress disorder): Status: Acute Code(s): F43.10 - Post-traumatic stress disorder, unspecified (3) Alcohol use disorder, moderate, dependence: Status: Acute Code(s): F10.20 - Alcohol dependence, uncomplicated (4) Opioid use disorder: Status: Acute Code(s): F11.90 - Opioid use, unspecified, uncomplicated Plan 36 yo female, hx of bipolar disorder, PTSD, polysubstance use-alcohol, opiates, stimulants presents s/p overdose on her husbands medications. Pt reports she has not received treatment since her last discharge from . She is hoping to detox, re-establish medications and secure referrals for out pt care for individual, couples and psychopharmacolgy. Plan: Suboxone ordered, detox underway. XRays of face, nose, orbital-Pt reports falling out of bed and injuring her face, nose, right ankle. Will begin with xrays. Once detox is stabilized, begin to work on psychiatric regime for mood, anxiety 03/10/22 Decrease Lorazeapm to 1 mg bid. Continue detox taper Doxepin 25 mg hs for sleep Referral to ENT on d/c for nasal fx Encouraged TDN retraction I spent minutes with the patient and/or on the patient floor today, greater than?50% of which was spent counseling/coordinating care. Patient educated on: diagnosis, medication risk/benefits, substance abuse, therapeutic strategies and medical condition Informed Consent: further education needed Reason for contiued inpatient stay Substantial Risk for: harm to self, inability to function, rapid decompensation and med/psych decompensation
[2022-03-10 18:00] VITALS: BP 115/58; PULSE 72; RESP 16; TEMP 36.9; O2SAT 98
[2022-03-10] MEDS: Acetaminophen 325 MG TABLET 650 MG PO (18:34)
[2022-03-10] MEDS: Doxepin HCl 25 MG CAPSULE PO (19:17)
[2022-03-10] MEDS: traZODone HCL 50 MG TABLET PO (21:38)
[2022-03-11 08:00] VITALS: PULSE 90
[2022-03-11] MEDS: Multivitamin TABLET 1 TAB PO (08:27)
[2022-03-11] MEDS: methADONE HCl 20 MG/2 ML ORAL.CONC 105 MG PO (08:27)
[2022-03-11] MEDS: LORazepam 1 MG TABLET PO (08:27)
[2022-03-11] MEDS: OXcarbazepine 300 MG TABLET PO ×2 (08:27→20:10)
[2022-03-11] MEDS: Thiamine HCL 100 MG TABLET PO (08:27)
[2022-03-11 08:34] VITALS: BP 98/54; PULSE 90; TEMP 36.7; O2SAT 100
--- NOTE | 2022-03-11 11:37 | P.PNPSI_ITS ---
Subjective Subjective Date of Service: 03/11/22 Reason For Visit: Suicide Attempt by OD Subjective Notes: Conditional Voluntary and 3 Day Interim History: Pt reports sleeping better. She reports also feeling better in terms of withdrawal symptoms- denies GI symptoms, less anxious, SBP<150, DBP<90, HR<100. Pt does appear somewhat sedated and nodding during interview few times. She denies SI/HI. She reports she would be interested in learning more about PHP after discharge but does not have a phone. Per nursing, no behavioral concerns. Medication Compliance: Yes Side effects from medications: No Attending Groups: Intermittent Review of Systems Acute medical concerns: No Medical Review of Systems: unchanged Review of Systems Review of Systems Yes all other systems are reviewed and are negative Constitutional: Reports headache(s) Eyes: Reports no additional eye complaints Reports facial pain, Reports headache(s) and Reports nasal trauma Cardiovascular: Reports no additional cardiovascular complaints Respiratory: Reports no additional respiratory complaints Gastrointestinal: Reports no additional gastrointestinal complaints Musculoskeletal: Reports no additional musculoskeletal complaints Skin/Breast: Reports wounds (skin picking) Reports behavioral changes and Reports headache(s) Psychiatric: Reports abnormal sleep pattern, Reports anxiety, Reports behavioral changes, Reports change in appetite, Reports depression, Reports difficulty concentrating, Reports hopelessness, Reports irritability, Reports anhedonia, Reports mood swings and Reports suicidal ideation (denies) Endocrine: Reports no additional endocrine complaints Hematologic/Lymphatic: Reports no additional hematologic/lymphatic complaints Allergic/Immunologic: Reports no additional allergic/immunologic complaints Mental Status Exam Mental Status Exam Narrative: Appearance: casually groomed, fair hygiene in NAD, nodding on and off Behavior:cooperative psychomotor:sedation noted Speech:clear, normal rate/rhythm/volume, spontaneous Thought process: linear Thought content:no signs of psychosis, feeling sleepy, no SI/HI. Mood: good Affect: somewhat sedated SI:none HI:none VH/AH:none Delusions:none Insight/judgment: fair x 2. Memory/cog: sedated at times, mostly alert, oriented x 3. grossly intact to conversational testing. Diagnostics Vital Signs (24Hr): Vital Signs - 24 hr 03/10/22 14:21 03/10/22 18:00 03/11/22 08:34 Temperature 98.5 F 98.1 F Pulse Rate 72 72 90 Respiratory Rate 16 Blood Pressure 95/55 L 115/58 L 98/54 L Pulse Oximetry 98 100 BMI result Body Mass Index 25.9 Labs Results: 03/08/22 11:02 03/10/22 07:56 Labs: Laboratory Results - last 48 hr 03/10/22 03/10/22 07:56 07:56 Sodium 140 Potassium 4.4 Chloride 105 Carbon Dioxide 29 Anion Gap 10 L BUN 12 Creatinine 0.68 Estim Creat Clear Calc 102.8 Estimated GFR > 60 Fasting Glucose 79 Estimat Average Glucose 94 Hemoglobin A1c % 4.9 Calcium 8.9 Total Bilirubin 0.4 Direct Bilirubin 0.2 AST 54 H ALT 59 H Alkaline Phosphatase 57 Total Protein 6.4 L Albumin 3.3 L Triglycerides 90 Cholesterol 139 LDL Cholesterol, Calc 84 HDL Cholesterol 37 Imaging Radiology Impressions: ITS Impressions Head CT 03/08/22 15:13 IMPRESSION: No acute intracranial pathology. Ankle X-Ray 03/09/22 14:37 IMPRESSION: Minimally displaced nasal bone fracture. Face X-Ray 03/09/22 14:37 IMPRESSION: Minimally displaced nasal bone fracture. Nasal Bones X-Ray 03/09/22 14:37 IMPRESSION: Minimally displaced nasal bone fracture. Medications Medications Current Medications Acetaminophen (Acetaminophen 325 Mg Tablet) 650 mg PO Q6H PRN PRN Reason: Headache/Pain Mild Scale (1-3) Last Admin: 03/10/22 18:34 Dose: 650 mg Documented by: Al Hydroxide/Mg Hydroxide (Magnesium Hydrox/Alum Hydrox 30 Ml Oral.Susp) 30 ml PO Q6H PRN PRN Reason: Heartburn/Nausea Clonidine HCl (Clonidine Hcl 0.1 Mg Tablet) 0.1 mg PO TID [facility]; Protocol Last Admin: 03/10/22 19:16 Dose: 0.1 mg Documented by: Doxepin HCl (Doxepin Hcl 25 Mg Capsule) 25 mg PO BEDTIME [facility] Last Admin: 03/10/22 19:17 Dose: 25 mg Documented by: Hydroxyzine HCl (Hydroxyzine Hcl 25 Mg Tablet) 25 mg PO BEDTIME PRN PRN Reason: Anxiety Last Admin: 03/10/22 21:38 Dose: 25 mg Documented by: Lorazepam (Lorazepam 1 Mg Tablet) 1 mg PO Q6H PRN PRN Reason: withdrawal Last Admin: 03/10/22 18:22 Dose: 1 mg Documented by: Lorazepam (Lorazepam 1 Mg Tablet) 1 mg PO BID [facility] Last Admin: 03/11/22 08:27 Dose: 1 mg Documented by: Magnesium Hydroxide (Milk Of Magnesia 30 Ml Oral.Susp) 30 ml PO DAILY PRN PRN Reason: Constipation Methadone HCl (Methadone Hcl 20 Mg/2 Ml Oral.Conc) 105 mg PO DAILY [facility] Last Admin: 03/11/22 08:27 Dose: 105 mg Documented by: Multivitamins/Vitamin C (Multivitamin Tablet) 1 tab PO DAILY [facility] Last Admin: 03/11/22 08:27 Dose: 1 tab Documented by: Oxcarbazepine (Oxcarbazepine 300 Mg Tablet) 300 mg PO BID [facility] Last Admin: 03/11/22 08:27 Dose: 300 mg Documented by: Thiamine HCl (Thiamine Hcl 100 Mg Tablet) 100 mg PO DAILY [facility] Last Admin: 03/11/22 08:27 Dose: 100 mg Documented by: Trazodone HCl (Trazodone Hcl 50 Mg Tablet) 50 mg PO BEDTIME PRN PRN Reason: Insomnia Last Admin: 03/10/22 21:38 Dose: 50 mg Documented by: Allergies Allergies Allergy/AdvReac Type Severity Reaction Status Date / Time codeine [CODEINE] Allergy Intermediate RASH Verified 11/25/20 14:32 quetiapine [From SEROQUEL] Allergy Intermediate RESTLESS Verified 11/25/20 14:32 LEG SYNDROME Assessment & Plan Assessment & Plan (1) Bipolar disorder with psychotic features: Status: Acute Code(s): F31.9 - Bipolar disorder, unspecified (2) PTSD (post-traumatic stress disorder): Status: Acute Code(s): F43.10 - Post-traumatic stress disorder, unspecified (3) Alcohol use disorder, moderate, dependence: Status: Acute Code(s): F10.20 - Alcohol dependence, uncomplicated (4) Opioid use disorder: Status: Acute Code(s): F11.90 - Opioid use, unspecified, uncomplicated Plan 36 yo female, hx of bipolar disorder, PTSD, polysubstance use-alcohol, opiates, stimulants presents s/p overdose on her husbands medications. Pt reports she has not received treatment since her last discharge from . She is hoping to detox, re-establish medications and secure referrals for out pt care for individual, couples and psychopharmacolgy. Plan: Suboxone ordered, detox underway. XRays of face, nose, orbital-Pt reports falling out of bed and injuring her face, nose, right ankle. Will begin with xrays. Once detox is stabilized, begin to work on psychiatric regime for mood, anxiety 03/10/22 Decrease Lorazeapm to 1 mg bid. Continue detox taper Doxepin 25 mg hs for sleep Referral to ENT on d/c for nasal fx Encouraged TDN retraction 03/11/22- No signs of active withdrawal- d/c ciwa d/c ativa related to alcohol withdrawal, lower standing dose of ativan, continue all other meds. I spent minutes with the patient and/or on the patient floor today, greater than?50% of which was spent counseling/coordinating care. Reason for contiued inpatient stay Substantial Risk for: harm to self and inability to function
[2022-03-11] MEDS: Acetaminophen 325 MG TABLET 650 MG PO ×2 (13:32→16:07)
[2022-03-11 14:30] VITALS: BP 129/60; PULSE 80
[2022-03-11] MEDS: cloNIDine HCL 0.1 MG TABLET PO ×2 (14:30→20:10)
[2022-03-11] MEDS: hydrOXYzine HCL 25 MG TABLET PO (16:07)
[2022-03-11 18:00] VITALS: BP 120/58; PULSE 89; RESP 16; TEMP 36.5; O2SAT 97
[2022-03-11] MEDS: Doxepin HCl 25 MG CAPSULE PO (20:10)
[2022-03-11] MEDS: traZODone HCL 50 MG TABLET PO (20:10)
[2022-03-12 06:00] VITALS: BP 105/55; PULSE 83; RESP 16; TEMP 36.2; O2SAT 99
[2022-03-12] MEDS: methADONE HCl 20 MG/2 ML ORAL.CONC 105 MG PO (08:50)
[2022-03-12] MEDS: Multivitamin TABLET 1 TAB PO (08:51)
[2022-03-12] MEDS: Thiamine HCL 100 MG TABLET PO (08:51)
[2022-03-12] MEDS: cloNIDine HCL 0.1 MG TABLET PO ×3 (08:51→20:20)
[2022-03-12] MEDS: OXcarbazepine 300 MG TABLET PO ×2 (08:51→20:20)
[2022-03-12 14:24] VITALS: BP 125/64; PULSE 94; RESP 18
[2022-03-12 17:01] VITALS: BP 116/56; PULSE 86; RESP 16; TEMP 36.1; O2SAT 98
[2022-03-12] MEDS: Doxepin HCl 25 MG CAPSULE PO (20:20)
[2022-03-12] MEDS: traZODone HCL 50 MG TABLET PO (20:21)
--- NOTE | 2022-03-12 21:50 | P.PNPSI_ITS ---
Subjective Subjective Date of Service: 03/12/22 Reason For Visit: Suicide Attempt by OD Subjective Notes: 3 Day Interim History: Patient anxious dysphoric denies SI. Somewhat sedated she is methadone no evidence of withdrawal Mental Status Exam Mental Status Exam Narrative: Appearance: casually groomed, fair hygiene in NAD, nodding on and off Behavior:cooperative psychomotor:sedation noted Speech:clear, normal rate/rhythm/volume, spontaneous Thought process: linear Thought content:no signs of psychosis, feeling sleepy, no SI/HI. Mood: good Affect: somewhat sedated SI:none HI:none VH/AH:none Delusions:none Insight/judgment: fair x 2. Memory/cog: sedated at times, mostly alert, oriented x 3. grossly intact to conversational testing. Diagnostics Vital Signs (24Hr): Vital Signs - 24 hr 03/12/22 06:00 03/12/22 14:24 03/12/22 17:01 Temperature 97.2 F 96.9 F Pulse Rate 83 94 86 Respiratory Rate 16 18 16 Blood Pressure 105/55 L 125/64 116/56 L Pulse Oximetry 99 98 BMI result Body Mass Index 25.9 Labs Results: 03/08/22 11:02 03/10/22 07:56 Imaging Radiology Impressions: ITS Impressions Head CT 03/08/22 15:13 IMPRESSION: No acute intracranial pathology. Ankle X-Ray 03/09/22 14:37 IMPRESSION: Minimally displaced nasal bone fracture. Face X-Ray 03/09/22 14:37 IMPRESSION: Minimally displaced nasal bone fracture. Nasal Bones X-Ray 03/09/22 14:37 IMPRESSION: Minimally displaced nasal bone fracture. Medications Medications Current Medications Acetaminophen (Acetaminophen 325 Mg Tablet) 650 mg PO Q6H PRN PRN Reason: Headache/Pain Mild Scale (1-3) Last Admin: 03/11/22 16:07 Dose: 650 mg Documented by: Al Hydroxide/Mg Hydroxide (Magnesium Hydrox/Alum Hydrox 30 Ml Oral.Susp) 30 ml PO Q6H PRN PRN Reason: Heartburn/Nausea Clonidine HCl (Clonidine Hcl 0.1 Mg Tablet) 0.1 mg PO TID [facility]; Protocol Last Admin: 03/12/22 20:20 Dose: 0.1 mg Documented by: Doxepin HCl (Doxepin Hcl 25 Mg Capsule) 25 mg PO BEDTIME [facility] Last Admin: 03/12/22 20:20 Dose: 25 mg Documented by: Hydroxyzine HCl (Hydroxyzine Hcl 25 Mg Tablet) 25 mg PO BEDTIME PRN PRN Reason: Anxiety Last Admin: 03/11/22 16:07 Dose: 25 mg Documented by: Magnesium Hydroxide (Milk Of Magnesia 30 Ml Oral.Susp) 30 ml PO DAILY PRN PRN Reason: Constipation Methadone HCl (Methadone Hcl 20 Mg/2 Ml Oral.Conc) 105 mg PO DAILY [facility] Last Admin: 03/12/22 08:50 Dose: 105 mg Documented by: Multivitamins/Vitamin C (Multivitamin Tablet) 1 tab PO DAILY [facility] Last Admin: 03/12/22 08:51 Dose: 1 tab Documented by: Oxcarbazepine (Oxcarbazepine 300 Mg Tablet) 300 mg PO BID [facility] Last Admin: 03/12/22 20:20 Dose: 300 mg Documented by: Thiamine HCl (Thiamine Hcl 100 Mg Tablet) 100 mg PO DAILY [facility] Last Admin: 03/12/22 08:51 Dose: 100 mg Documented by: Trazodone HCl (Trazodone Hcl 50 Mg Tablet) 50 mg PO BEDTIME PRN PRN Reason: Insomnia Last Admin: 03/12/22 20:21 Dose: 50 mg Documented by: Allergies Allergies Allergy/AdvReac Type Severity Reaction Status Date / Time codeine [CODEINE] Allergy Intermediate RASH Verified 11/25/20 14:32 quetiapine [From SEROQUEL] Allergy Intermediate RESTLESS Verified 11/25/20 14:32 LEG SYNDROME Assessment & Plan Assessment & Plan (1) Bipolar disorder with psychotic features: Status: Acute Code(s): F31.9 - Bipolar disorder, unspecified (2) PTSD (post-traumatic stress disorder): Status: Acute Code(s): F43.10 - Post-traumatic stress disorder, unspecified (3) Alcohol use disorder, moderate, dependence: Status: Acute Code(s): F10.20 - Alcohol dependence, uncomplicated (4) Opioid use disorder: Status: Acute Code(s): F11.90 - Opioid use, unspecified, uncomplicated Plan 36 yo female, hx of bipolar disorder, PTSD, polysubstance use-alcohol, opiates, stimulants presents s/p overdose on her husbands medications. Pt reports she has not received treatment since her last discharge from . She is hoping to detox, re-establish medications and secure referrals for out pt care for individual, couples and psychopharmacolgy. Plan: Suboxone ordered, detox underway. XRays of face, nose, orbital-Pt reports falling out of bed and injuring her face, nose, right ankle. Will begin with xrays. Once detox is stabilized, begin to work on psychiatric regime for mood, anxiety Current note for 03/12/2022 Patient can given Ferraro warning patient depressed irritable states she has not been and treatment Trileptal restarted not psychotic would consider Latuda. Patient states she has not been lithium she was on Geodon previously. Denies active SI mostly in bed somewhat lethargic encourage retraction of 3 day denies active self-harm Monitor for over-sedation with methadone and oxcarbazepine and clonidine I spent minutes with the patient and/or on the patient floor today, greater than?50% of which was spent counseling/coordinating care. Reason for contiued inpatient stay Substantial Risk for: harm to self and rapid decompensation
--- NOTE | 2022-03-13 08:00 | ECG_ITS ---
Test Reason : METHADONE QTC Blood Pressure : / mmHG Vent. Rate : 059 BPM Atrial Rate : 059 BPM P-R Int : 146 ms QRS Dur : 080 ms QT Int : 408 ms P-R-T Axes : 056 073 053 degrees QTc Int : 403 ms Sinus bradycardia Otherwise normal ECG When compared with ECG of 08-MAR-2022 20:33, QT has shortened Referred By: Eusebio López Electronically Signed By:STEVE CHAIDEZ
[2022-03-13 08:30] VITALS: BP 109/53; PULSE 70; TEMP 37.1
[2022-03-13] MEDS: cloNIDine HCL 0.1 MG TABLET PO ×3 (08:32→20:15)
[2022-03-13] MEDS: Acetaminophen 325 MG TABLET 650 MG PO (08:33)
[2022-03-13] MEDS: Multivitamin TABLET 1 TAB PO (08:33)
[2022-03-13] MEDS: OXcarbazepine 300 MG TABLET PO ×2 (08:33→20:16)
[2022-03-13] MEDS: Thiamine HCL 100 MG TABLET PO (08:33)
[2022-03-13] MEDS: methADONE HCl 20 MG/2 ML ORAL.CONC 105 MG PO (08:34)
--- NOTE | 2022-03-13 13:57 | PC.NURSE ---
Pt retracted her 3 day and resigned another 3 day today. 3Day is up 03/16
[2022-03-13 18:00] VITALS: BP 109/57; PULSE 61; RESP 18; TEMP 36; O2SAT 98
[2022-03-13] MEDS: Doxepin HCl 25 MG CAPSULE PO (20:15)
[2022-03-13] MEDS: traZODone HCL 50 MG TABLET PO (20:16)
--- NOTE | 2022-03-13 23:22 | P.PNPSI_ITS ---
Subjective Subjective Date of Service: 03/13/22 Reason For Visit: Suicide Attempt by OD Subjective Notes: Conditional Voluntary Interim History: Pt urged to retract 3 day would benefit from php Medication Compliance: Yes Mental Status Exam Mental Status Exam Narrative: Appearance: casually groomed, fair hygiene in NAD, nodding on and off Behavior:cooperative psychomotor:sedation noted Speech:clear, normal rate/rhythm/volume, spontaneous Thought process: linear Thought content:no signs of psychosis, looking forward to be discharge today, no SI/HI. Mood: good Affect: congruent, bright, non labile SI:none HI:none VH/AH:none Delusions:none Insight/judgment: fair x 2. Memory/cog: sedated at times, mostly alert, oriented x 3. grossly intact to conversational testing. Diagnostics Vital Signs (24Hr): Vital Signs - 24 hr 03/13/22 08:30 03/13/22 18:00 Temperature 98.8 F 96.8 F Pulse Rate 70 61 Respiratory Rate 18 Blood Pressure 109/53 L 109/57 L Pulse Oximetry 98 BMI result Body Mass Index 25.9 Labs Results: 03/08/22 11:02 03/10/22 07:56 Imaging Radiology Impressions: ITS Impressions Head CT 03/08/22 15:13 IMPRESSION: No acute intracranial pathology. Ankle X-Ray 03/09/22 14:37 IMPRESSION: Minimally displaced nasal bone fracture. Face X-Ray 03/09/22 14:37 IMPRESSION: Minimally displaced nasal bone fracture. Nasal Bones X-Ray 03/09/22 14:37 IMPRESSION: Minimally displaced nasal bone fracture. Medications Medications Current Medications Acetaminophen (Acetaminophen 325 Mg Tablet) 650 mg PO Q6H PRN PRN Reason: Headache/Pain Mild Scale (1-3) Last Admin: 03/13/22 08:33 Dose: 650 mg Documented by: Al Hydroxide/Mg Hydroxide (Magnesium Hydrox/Alum Hydrox 30 Ml Oral.Susp) 30 ml PO Q6H PRN PRN Reason: Heartburn/Nausea Clonidine HCl (Clonidine Hcl 0.1 Mg Tablet) 0.1 mg PO TID [facility]ICO; Protocol Last Admin: 03/13/22 20:15 Dose: 0.1 mg Documented by: Doxepin HCl (Doxepin Hcl 25 Mg Capsule) 25 mg PO BEDTIME [facility] Last Admin: 03/13/22 20:15 Dose: 25 mg Documented by: Hydroxyzine HCl (Hydroxyzine Hcl 25 Mg Tablet) 25 mg PO BEDTIME PRN PRN Reason: Anxiety Last Admin: 03/11/22 16:07 Dose: 25 mg Documented by: Magnesium Hydroxide (Milk Of Magnesia 30 Ml Oral.Susp) 30 ml PO DAILY PRN PRN Reason: Constipation Methadone HCl (Methadone Hcl 20 Mg/2 Ml Oral.Conc) 105 mg PO DAILY [facility] Last Admin: 03/13/22 08:34 Dose: 105 mg Documented by: Multivitamins/Vitamin C (Multivitamin Tablet) 1 tab PO DAILY [facility] Last Admin: 03/13/22 08:33 Dose: 1 tab Documented by: Oxcarbazepine (Oxcarbazepine 300 Mg Tablet) 300 mg PO BID [facility] Last Admin: 03/13/22 20:16 Dose: 300 mg Documented by: Thiamine HCl (Thiamine Hcl 100 Mg Tablet) 100 mg PO DAILY [facility] Last Admin: 03/13/22 08:33 Dose: 100 mg Documented by: Trazodone HCl (Trazodone Hcl 50 Mg Tablet) 50 mg PO BEDTIME PRN PRN Reason: Insomnia Last Admin: 03/13/22 20:16 Dose: 50 mg Documented by: Allergies Allergies Allergy/AdvReac Type Severity Reaction Status Date / Time codeine [CODEINE] Allergy Intermediate RASH Verified 11/25/20 14:32 quetiapine [From SEROQUEL] Allergy Intermediate RESTLESS Verified 11/25/20 14:32 LEG SYNDROME Assessment & Plan Assessment & Plan (1) Bipolar disorder with psychotic features: Status: Acute Code(s): F31.9 - Bipolar disorder, unspecified (2) PTSD (post-traumatic stress disorder): Status: Acute Code(s): F43.10 - Post-traumatic stress disorder, unspecified (3) Alcohol use disorder, moderate, dependence: Status: Acute Code(s): F10.20 - Alcohol dependence, uncomplicated (4) Opioid use disorder: Status: Acute Code(s): F11.90 - Opioid use, unspecified, uncomplicated Plan 36 yo female, hx of bipolar disorder, PTSD, polysubstance use-alcohol, opiates, stimulants presents s/p overdose on her husbands medications. Pt reports she has not received treatment since her last discharge from . She is hoping to detox, re-establish medications and secure referrals for out pt care for individual, couples and psychopharmacolgy. Plan: Suboxone ordered, detox underway. XRays of face, nose, orbital-Pt reports falling out of bed and injuring her face, nose, right ankle. Will begin with xrays. Once detox is stabilized, begin to work on psychiatric regime for mood, anxiety Current note for 03/12/2022 Patient can given Ferraro warning patient depressed irritable states she has not been and treatment Trileptal restarted not psychotic would consider Latuda. Patient states she has not been lithium she was on Geodon previously. Denies active SI mostly in bed somewhat lethargic encourage retraction of 3 day denies active self-harm Monitor for over-sedation with methadone and oxcarbazepine and clonidine current note for 03/13/22 Pt seen case reviewed with staff encourage retraction I spent minutes with the patient and/or on the patient floor today, greater than?50% of which was spent counseling/coordinating care. Reason for contiued inpatient stay Substantial Risk for: inability to function and rapid decompensation
[2022-03-14] MEDS: traZODone HCL 50 MG TABLET PO (00:57)
[2022-03-14] MEDS: hydrOXYzine HCL 25 MG TABLET PO (00:57)
[2022-03-14] MEDS: Thiamine HCL 100 MG TABLET PO (08:46)
[2022-03-14] MEDS: OXcarbazepine 300 MG TABLET PO (08:47)
[2022-03-14] MEDS: Multivitamin TABLET 1 TAB PO (08:47)
[2022-03-14] MEDS: methADONE HCl 20 MG/2 ML ORAL.CONC 105 MG PO (08:47)
[2022-03-14 10:00] VITALS: BP 110/63; PULSE 63; TEMP 36.6
[2022-03-14] MEDS: Acetaminophen 325 MG TABLET 650 MG PO (10:04)
[2022-03-14] MEDS: cloNIDine HCL 0.1 MG TABLET PO ×2 (10:05→14:32)
--- NOTE | 2022-03-14 11:52 | P.DS_ITS ---
DS: Providers Provider Date of Service: 03/14/22 Date of admission: 03/09/22 03:59 Primary care physician: Unknown Physician Consults: 03/09/22 09:08 Addiction Medicine Routine Consulting Provider: Liz Stahl Reason for consultation: Methadone 105 mg last on 03/07. Needed IV Narcan 03/08. Consult to restart.Ty Has provider been notified: No DS: Diagnosis Discharge Diagnosis (1) Bipolar disorder with psychotic features: Status: Acute (2) PTSD (post-traumatic stress disorder): Status: Acute (3) Alcohol use disorder, moderate, dependence: Status: Acute (4) Opioid use disorder: Status: Acute DS: Medications Discharge Medications Home Medications: Home Medications Medication Instructions Recorded Confirmed cyclobenzaprine 10 mg tablet 1 tab PO BID PRN 12/24/21 01/08/22 docusate sodium 100 mg capsule 1 cap PO BID PRN 12/24/21 01/08/22 Previous Rx's Medication Instructions Recorded clonidine HCl 0.1 mg tablet 0.1 mg PO TID #45 tab 03/14/22 doxepin 25 mg capsule 25 mg PO BEDTIME #30 cap 03/14/22 methadone 10 mg/mL oral 105 mg (10.5 mL) PO DAILY #0 ml 03/14/22 concentrate (Methadose) multivitamin (Daily-Ketan) 1 tab PO DAILY #30 tab 03/14/22 oxcarbazepine 300 mg tablet 300 mg PO BID #60 tab 03/14/22 thiamine mononitrate (vit B1) 100 100 mg PO DAILY #30 tab 03/14/22 mg tablet Mental Status Exam Mental Status Exam Narrative: Appearance: casually groomed, fair hygiene in NAD, nodding on and off Behavior:cooperative psychomotor:sedation noted Speech:clear, normal rate/rhythm/volume, spontaneous Thought process: linear Thought content:no signs of psychosis, looking forward to be discharge today, no SI/HI. Mood: good Affect: congruent, bright, non labile SI:none HI:none VH/AH:none Delusions:none Insight/judgment: fair x 2. Memory/cog: sedated at times, mostly alert, oriented x 3. grossly intact to conversational testing. Data Data Completed and Pending Completed studies during hospitalization [Text1]: 03/08/22 03/08/22 03/08/22 11:02 11:02 11:02 WBC 8.5 RBC 5.51 H D Hgb 15.5 D Hct 46.7 D MCV 84.8 MCH 28.1 MCHC 33.2 RDW 13.2 Plt Count 200 MPV 9.7 Immature Gran % (Auto) 0.4 Neut % (Auto) 78.7 H Lymph % (Auto) 14.2 L [place] % (Auto) 6.1 Eos % (Auto) 0.4 Baso % (Auto) 0.2 Lymph # (Auto) 1.2 [place] # (Auto) 0.5 Eos # (Auto) 0.0 Baso # (Auto) 0.0 Abs Immat Gran (auto) 0.03 Absolute Neuts (auto) 6.7 Absolute Nucleated RBC 0.000 Nucleated RBC % (auto) 0.0 PT 11.1 INR 1.0 APTT Sodium 142 Potassium 3.5 Chloride 106 Carbon Dioxide 24 Anion Gap 16 BUN 24 H Creatinine 0.99 Estim Creat Clear Calc 71.3 Estimated GFR > 60 Random Glucose 89 Fasting Glucose Estimat Average Glucose Hemoglobin A1c % Calcium 9.5 D Magnesium 2.3 Total Bilirubin 0.7 Direct Bilirubin 0.2 AST 62 H ALT 80 H Alkaline Phosphatase 74 D Total Protein 7.9 Albumin 4.1 Triglycerides Cholesterol LDL Cholesterol, Calc HDL Cholesterol Lipase 25 Beta HCG, Quant Salicylates < 5.0 L Urine Opiates Screen Urine Fentanyl Screen Acetaminophen < 1 Ur Barbiturates Screen Ur Phencyclidine Scrn Ur Amphetamines Screen U Benzodiazepines Scrn Urine Cocaine Screen U Marijuana (THC) Screen Ethyl Alcohol COVID-19 ([facility]) COVID-19 Clin Com 03/08/22 03/08/22 03/08/22 11:02 11:02 13:57 WBC RBC Hgb Hct MCV MCH MCHC RDW Plt Count MPV Immature Gran % (Auto) Neut % (Auto) Lymph % (Auto) [place] % (Auto) Eos % (Auto) Baso % (Auto) Lymph # (Auto) [place] # (Auto) Eos # (Auto) Baso # (Auto) Abs Immat Gran (auto) Absolute Neuts (auto) Absolute Nucleated RBC Nucleated RBC % (auto) PT INR APTT Sodium Potassium Chloride Carbon Dioxide Anion Gap BUN Creatinine Estim Creat Clear Calc Estimated GFR Random Glucose Fasting Glucose Estimat Average Glucose Hemoglobin A1c % Calcium Magnesium Total Bilirubin 0.8 Direct Bilirubin 0.2 AST 65 H ALT 79 H Alkaline Phosphatase 70 Total Protein 8.0 Albumin 4.1 Triglycerides Cholesterol LDL Cholesterol, Calc HDL Cholesterol Lipase Beta HCG, Quant < 2 Salicylates Urine Opiates Screen Urine Fentanyl Screen Acetaminophen Ur Barbiturates Screen Ur Phencyclidine Scrn Ur Amphetamines Screen U Benzodiazepines Scrn Urine Cocaine Screen U Marijuana (THC) Screen Ethyl Alcohol < 10 COVID-19 ([facility]) COVID-19 Clin Com 03/08/22 03/08/22 03/08/22 18:36 21:04 21:04 WBC RBC Hgb Hct MCV MCH MCHC RDW Plt Count MPV Immature Gran % (Auto) Neut % (Auto) Lymph % (Auto) [place] % (Auto) Eos % (Auto) Baso % (Auto) Lymph # (Auto) [place] # (Auto) Eos # (Auto) Baso # (Auto) Abs Immat Gran (auto) Absolute Neuts (auto) Absolute Nucleated RBC Nucleated RBC % (auto) PT 11.6 INR 1.0 APTT 33.7 Sodium 143 Potassium 4.1 Chloride 109 H Carbon Dioxide 26 Anion Gap 12 BUN 20 H Creatinine 0.80 Estim Creat Clear Calc 88.2 Estimated GFR > 60 Random Glucose 98 Fasting Glucose Estimat Average Glucose Hemoglobin A1c % Calcium 8.6 D Magnesium 2.5 Total Bilirubin 0.5 Direct Bilirubin AST 49 H ALT 62 H Alkaline Phosphatase 65 Total Protein 6.9 Albumin 3.7 Triglycerides Cholesterol LDL Cholesterol, Calc HDL Cholesterol Lipase Beta HCG, Quant Salicylates < 5.0 L Urine Opiates Screen Urine Fentanyl Screen Acetaminophen < 1 Ur Barbiturates Screen Ur Phencyclidine Scrn Ur Amphetamines Screen U Benzodiazepines Scrn Urine Cocaine Screen U Marijuana (THC) Screen Ethyl Alcohol COVID-19 (CHARLY) Negative COVID-19 Clin Com See Note 03/08/22 03/08/22 03/10/22 21:04 23:46 07:56 WBC RBC Hgb Hct MCV MCH MCHC RDW Plt Count MPV Immature Gran % (Auto) Neut % (Auto) Lymph % (Auto) [place] % (Auto) Eos % (Auto) Baso % (Auto) Lymph # (Auto) [place] # (Auto) Eos # (Auto) Baso # (Auto) Abs Immat Gran (auto) Absolute Neuts (auto) Absolute Nucleated RBC Nucleated RBC % (auto) PT INR APTT Sodium 140 Potassium 4.4 Chloride 105 Carbon Dioxide 29 Anion Gap 10 L BUN 12 Creatinine 0.68 Estim Creat Clear Calc 102.8 Estimated GFR > 60 Random Glucose Fasting Glucose 79 Estimat Average Glucose Hemoglobin A1c % Calcium 8.9 Magnesium Total Bilirubin 0.4 Direct Bilirubin 0.2 AST 54 H ALT 59 H Alkaline Phosphatase 57 Total Protein 6.4 L Albumin 3.3 L Triglycerides 90 Cholesterol 139 LDL Cholesterol, Calc 84 HDL Cholesterol 37 Lipase Beta HCG, Quant Salicylates Urine Opiates Screen POSITIVE H Urine Fentanyl Screen POSITIVE H Acetaminophen Ur Barbiturates Screen Not Detected Ur Phencyclidine Scrn Not Detected Ur Amphetamines Screen Not Detected U Benzodiazepines Scrn Not Detected Urine Cocaine Screen POSITIVE H U Marijuana (THC) Screen Not Detected Ethyl Alcohol < 10 COVID-19 ([facility]LY) COVID-19 [employer] Com 03/10/22 07:56 WBC RBC Hgb Hct MCV MCH MCHC RDW Plt Count MPV Immature Gran % (Auto) Neut % (Auto) Lymph % (Auto) [place] % (Auto) Eos % (Auto) Baso % (Auto) Lymph # (Auto) [place] # (Auto) Eos # (Auto) Baso # (Auto) Abs Immat Gran (auto) Absolute Neuts (auto) Absolute Nucleated RBC Nucleated RBC % (auto) PT INR APTT Sodium Potassium Chloride Carbon Dioxide Anion Gap BUN Creatinine Estim Creat Clear Calc Estimated GFR Random Glucose Fasting Glucose Estimat Average Glucose 94 Hemoglobin A1c % 4.9 Calcium Magnesium Total Bilirubin Direct Bilirubin AST ALT Alkaline Phosphatase Total Protein Albumin Triglycerides Cholesterol LDL Cholesterol, Calc HDL Cholesterol Lipase Beta HCG, Quant Salicylates Urine Opiates Screen Urine Fentanyl Screen Acetaminophen Ur Barbiturates Screen Ur Phencyclidine Scrn Ur Amphetamines Screen U Benzodiazepines Scrn Urine Cocaine Screen U Marijuana (THC) Screen Ethyl Alcohol COVID-19 ([facility]) COVID-19 Clin Com Imaging Diagnostic Imaging Impressions Head CT 03/08/22 15:13 IMPRESSION: No acute intracranial pathology. Ankle X-Ray 03/09/22 14:37 IMPRESSION: Minimally displaced nasal bone fracture. Face X-Ray 03/09/22 14:37 IMPRESSION: Minimally displaced nasal bone fracture. Nasal Bones X-Ray 03/09/22 14:37 IMPRESSION: Minimally displaced nasal bone fracture. DS: Summary Hospital Course Hospital Course: Ferraro Warning, Conditional Voluntary and 3 Day Healthcare Proxy: No Guardianship: No Medical Problems Affecting Mental Status: No Narrative: 36 yo female, s/p medication overdose on her husbands medicines. Reports this to have been precipitous, impulsive and reactive. Reports increase in depression, poor sleep and appetite along with substance use. Met with pt who is resting in bed. She reports since her last admit she did not follow up with out pt providers and as a result has been very inconsistent with medications-taking them 3-4 days at a time. Reports discord in the marriage, infidelity on both parts and the need for couples treatment. Also reports falling out of bed and believes her nose to be fractured along with her right ankle. Anxiety is still an issue as well she reports. Pt intersted in getting connected with out patient providers for individual, couples and psychopharmacology. She also is interested in a family meeting during her hospitalization. Past Psychiatric History: IP: 2012, 2000-took OD of Seroquel #180 200 mg tabs-8 day coma-Seroquel now causes RLS OP: No current alliances Trials: Sertraline, Gabapentin, Depakote, Wellbutrin, Thorazine Medical Evaluation Reviewed: Yes HOSPITAL COURSE On the unit, Ms. Sosa was admitted on CV and placed on 15 minutes checks for safety. Pt was started on CIWA protocol for alcohol withdrawal. She was continued on methadone. She did not have any medical complications from withdrawal symptoms. After discussing risks, benefits and alternative treatment options, Ms. Sosa was restarted on trileptal, medication she had been on in the past with good effect for mood stabilization. She was started on doxepine for sleep/mood with fair response, may benefit from adjust of dose in the community. Ms. Harmon was visible in the unit, social with select peers. There were no incidences of disruptive behaviors nor use of restraints. Ms. Sosa declined referrals for residential substance use treatment programs. She agreed to continue OP psych tx. She was given narcan at time of discharge, conversation about harm reduction as she continues working on recovery. Time spent discussing smoking cessation with patient: 3 to 10 minutes Status at Discharge Cognitive/behavioral status at discharge: Pt with much improved hygiene, not sedated, brighter, non labile. No SI/HI. Future oriented, reports less symptoms of depression and denies SI/HI. No signs of psychosis throughout this admission. No signs of aggression towards self or others. Functional status at discharge: independent ambulation Overall status at discharge: patient is progressing back to baseline Time Spent with Patient Time attestation: Total time spent providing and/or coordinating discharge services: Discharge Plan Discharge Patient Disposition: Home, Self-Care Discharge Diagnosis: Bipolar type 2 Disorder Opioid Use Disorder Alcohol Use disorder Referrals: Therapy Intake: [facility] [Other] - 03/16/22 11:00 am (This is an in- person appointment. You must attend the therapy intake appointment to be referred for psychiatry services) Methadone: [facility] [Other] - 03/15/22 8:00 am (Please bring your last dose letter and present to the clinic during normal dosing hours) Physician,Unknown J [Primary Care Provider] - 1 Week Discharge Medications: New clonidine HCl 0.1 mg Tablet 0.1 mg PO TID Qty: 45 0RF Protocol: Hold for SBP< HOLD for SBP < : 90 doxepin 25 mg Capsule 25 mg PO BEDTIME Qty: 30 0RF oxcarbazepine 300 mg Tablet 300 mg PO BID Qty: 60 0RF methadone [Methadose] 10 mg/mL Concentrate 105 mg PO DAILY Qty: 0 0RF thiamine mononitrate (vit B1) 100 mg Tablet 100 mg PO DAILY Qty: 30 0RF multivitamin [Daily-Ketan] Tablet 1 tab PO DAILY Qty: 30 0RF Continued cyclobenzaprine 10 mg tablet 1 tab PO BID PRN (Reason: muscle spasm) 0RF docusate sodium 100 mg capsule 1 cap PO BID PRN (Reason: Constipation) 0RF Discontinued multivitamin [One Daily Multivitamin] Tablet 1 tab PO DAILY 0RF oxcarbazepine 300 mg tablet 1 tab PO BID 0RF trazodone 150 mg tablet 1 tab PO BEDTIME 0RF ziprasidone HCl 40 mg capsule 40 mg PO BEDTIME 0RF cholecalciferol (vitamin D3) [Vitamin D3] 10 mcg (400 unit) tablet 1 tab PO DAILY 0RF methadone 10 mg/5 mL Solution 105 mg PO DAILY 0RF Discharge Orders: Discharge Order (Routine); Ordered 03/14/22 Ordered By: Letitia Wesley Diet: regular diet Activity on Discharge: As tolerated Stand Alone Forms: Patient Portal Discharge page Care Plan Goals: 1. Maintain mood 2. No SI/HI. No signs of aggression towards self or others. Harm reduction- given narcan on discharge Health Concerns: Follow up with PCP for regular care Plan of Treatment: 1. Take medications as prescribed 2. Carry Narcan with you 3. Go to nearest ED and/or call 911 in event of emergency. Assessment: Pt with brighter affect. No SI/HI. Future oriented. No signs of aggression towards self or others. No signs of aggression towards self or others.
[2022-03-14] MEDS: Naloxone HCl Nasal TAKE HOME 4 MG SPRAY NOSTRILALT (13:57)
== END 2022-03-14 15:00 | disposition home or self-care (01) | DRG 885 ==
LOC: HO.ED 17:22 → HO.PM5 03-09 04:00
PROVIDERS: Physician Assistant; Psychiatry & Neurology Psychiatry; Admitting Provider Psychiatry & Neurology Psychiatry; Emergency Provider Student in an Organized Health Care Education/Training Program; Visit Provider Psychiatry & Neurology Psychiatry
DX: F31.9 Bipolar disorder, unspecified (principal); R45.851 Suicidal ideations; F11.20 Opioid dependence, uncomplicated; F43.10 Post-traumatic stress disorder, unspecified; F17.210 Nicotine dependence, cigarettes, uncomplicated; F10.20 Alcohol dependence, uncomplicated; Z86.19 Personal history of other infectious and parasitic diseases; Z20.822 Contact with and (suspected) exposure to COVID-19; Z91.51 Personal history of suicidal behavior; Z71.6 Tobacco abuse counseling; Z88.5 Allergy status to narcotic agent; Z88.8 Allergy status to other drugs, medicaments and biological substances; Z79.899 Other long term (current) drug therapy
CPT/HCPCS: 36415; 70140; 70160; 70450; 73610; 80048; 80053; 80061; 80076; 80143; 80179; 80307; 82077; 83036; 83690; 83735; 84702; 85025; 85610; 85730; 87635; 93005; 96361; 96365; 96375; 99285; J3475

== ENCOUNTER 2022-03-15 14:20 | Emergency (ER) | payer OTHER, SELFPAY ==
[2022-03-15 14:25] VITALS: BP 149/78; PULSE 96; RESP 18; TEMP 36.7; O2SAT 99; BMI 21.2
--- NOTE | 2022-03-15 14:51 | PC.NURSE ---
PT WAS BROUGHT INTO [facility] ROOM 4, ASKED US TO USE A PHONE WHICH THIS RN GAVE TO PATIENT. DOCTOR OPENED CURTAIN TO SEE PATIENT AND LEFT WITHOUT BEING SEEN.
== END 2022-03-15 14:58 | disposition left against medical advice (07) ==
LOC: HO.ED 14:57
PROVIDERS: Emergency Provider Emergency Medicine; PCP Family Medicine
DX: S99.919A Unspecified injury of unspecified ankle, initial encounter (principal); X58.XXXA Exposure to other specified factors, initial encounter; Y93.9 Activity, unspecified; Y92.9 Unspecified place or not applicable; Y99.9 Unspecified external cause status
CPT/HCPCS: 99281

== ENCOUNTER 2022-03-15 23:45 | Inpatient (IN) | payer OTHER, SELFPAY ==
[2022-03-15 23:51] VITALS: BP 134/89; PULSE 89; RESP 18; TEMP 37.2; O2SAT 98; BMI 22.1
--- NOTE | 2022-03-16 | ECG_ITS ---
Test Reason : med clearance Blood Pressure : / mmHG Vent. Rate : 049 BPM Atrial Rate : 049 BPM P-R Int : 148 ms QRS Dur : 076 ms QT Int : 516 ms P-R-T Axes : 068 078 066 degrees QTc Int : 466 ms Sinus bradycardia Otherwise normal ECG When compared with ECG of 13-MAR-2022 11:42, QT has lengthened Referred By: Isabel Guzmán Electronically Signed By:STEVE CHAIDEZ
--- NOTE | 2022-03-16 00:01 | ED.PSYCH ---
HPI - Psych General Chief Complaint: ETOH/Substance Use <Shell Soliman NP - Last Filed: 03/16/22 02:09> Stated Complaint: si <Shell Soliman NP - Last Filed: 03/16/22 02:09> Time Seen by Provider: 03/16/22 05:57 <Shell Soliman NP - Last Filed: 03/16/22 02:09> Source: patient <Shell Soliman NP - Last Filed: 03/16/22 02:09> Mode of arrival: ambulatory <Shell Soliman NP - Last Filed: 03/16/22 02:09> Limitations: no limitations <Shell Soliman NP - Last Filed: 03/16/22 02:09> History of Present Illness HPI Narrative: 86-year-old female presents via EMS for suicidal ideation. EMS reports that she had her friend called 911 at a bar that she was at because patient stated that she felt unsafe. <Shell Soliman NP - Last Filed: 03/16/22 02:09> MD complaint: suicidal ideation, anxiety, substance abuse and alcohol abuse <Shell Soliman NP - Last Filed: 03/16/22 02:09> Onset (ago): unknown <Shell Soliman NP - Last Filed: 03/16/22 02:09> History of same: Yes <Shell Soliman NP - Last Filed: 03/16/22 02:09> Relieving factors: none <Shell Soliman NP - Last Filed: 03/16/22 02:09> Exacerbating factors: alcohol and drug use <Shell Soliman NP - Last Filed: 03/16/22 02:09> Context: recent alcohol abuse and recent drug abuse <Shell Soliman NP - Last Filed: 03/16/22 02:09> Associated psychiatric symptoms: suicidal ideation <Shell Soliman NP - Last Filed: 03/16/22 02:09> Treatments prior to arrival: none <Shell Soliman NP - Last Filed: 03/16/22 02:09> If self harm: admits thoughts of self harm <Shell Soliman NP - Last Filed: 03/16/22 02:09> Related Data Home Medications: Home Medications Medication Instructions Recorded Confirmed cyclobenzaprine 10 mg tablet 1 tab PO BID PRN 12/24/21 03/16/22 docusate sodium 100 mg capsule 1 cap PO BID PRN 12/24/21 03/16/22 Previous Rx's Medication Instructions Recorded clonidine HCl 0.1 mg tablet 0.1 mg PO TID #45 tab 03/14/22 doxepin 25 mg capsule 25 mg PO BEDTIME #30 cap 03/14/22 methadone 10 mg/mL oral 105 mg (10.5 mL) PO DAILY #0 ml 03/14/22 concentrate (Methadose) multivitamin (Daily-Ketan) 1 tab PO DAILY #30 tab 03/14/22 oxcarbazepine 300 mg tablet 300 mg PO BID #60 tab 03/14/22 thiamine mononitrate (vit B1) 100 100 mg PO DAILY #30 tab 03/14/22 mg tablet <Shell Soliman NP - Last Filed: 03/16/22 02:09> Allergies/Adverse Reactions: Allergies Allergy/AdvReac Type Severity Reaction Status Date / Time codeine [CODEINE] Allergy Intermediate RASH Verified 03/15/22 14:25 quetiapine [From SEROQUEL] Allergy Intermediate RESTLESS Verified 03/15/22 14:25 LEG SYNDROME <JOSE Bernabe Last Filed: 03/16/22 02:09> Review of Systems Review of Systems: Constitutional: No Fever, No Chills ENT/Mouth: No Ear Pain, No Nasal Congestion, No sore throat Eyes: No Eye Pain, No Swelling, No Redness Cardiovascular: No Chest Pain, No SOB Respiratory: No Cough, No Sputum, No Dyspnea Gastrointestinal: No Nausea, No Vomiting, No Diarrhea, No Hematochezia, No Melena Genitourinary: No Dysuria, No Urinary Frequency, No Hematuria Musculoskeletal: No Myalgias Skin: No Skin Lesions, No rash Neuro: No Weakness, No Numbness, No Paresthesias, No Dizziness, No Headache Psych: positive Anxiety, positive Depression, positive SI, positive polysubstance abuse Heme/Lymph: No Lymphadenopathy Endocrine: No Polyuria, No Polydipsia <JOSE Bernabe Last Filed: 03/16/22 02:09> Yes all other systems are reviewed and are negative <Shell Soliman NP - Last Filed: 03/16/22 02:09> [facility] Past Medical History Attestation statement: The following information was validated with the patient. <Shell Soliman NP - Last Filed: 03/16/22 02:09> Source: old records reviewed <Shell Soliman NP - Last Filed: 03/16/22 02:09> Medical History: Medical History Alcohol use disorder, moderate, dependence Asthma Bipolar disorder with psychotic features Hepatitis C Opioid use disorder PTSD (post-traumatic stress disorder) Stimulant use disorder Substance abuse <Shell Soliman NP - Last Filed: 03/16/22 02:09> Surgical History: Surgical History H/O: hysterectomy <Shell Soliman NP - Last Filed: 03/16/22 02:09> Social History Social History: Social History Household Members: Spouse Household Members Other:: 's drug dealer Housing: Apartment Do you presently have visiting nurse or other home services: No Alcohol intake: current Patient Tobacco Use Status: Current everyday Tobacco user Tobacco use type: Cigarette Cigarette Packs Per Day: 0.5 Cigarettes Per Day: 10.0 Second Hand Smoke Exposure: Yes Substance Use Type: Crack/Cocaine, Heroin, Marijuana and Prescription Drugs Advance Directives: No Patient : No service: No Sexual orientation: Did not discuss <Shell Soliman NP - Last Filed: 03/16/22 02:09> Physical Exam Vital Signs: Vital Signs: Last Vital Signs Temp 98.1 F 03/16/22 08:22 Pulse 54 03/16/22 08:22 Resp 18 03/16/22 08:22 BP 105/69 03/16/22 08:22 Pulse Ox 98 03/16/22 08:22 BMI result Body Mass Index 22.1 <Shell Soliman NP - Last Filed: 03/16/22 02:09> Vital Signs: Last Vital Signs Temp 98.1 F 03/16/22 08:22 Pulse 54 04/27/22 08:22 Resp 18 03/16/22 08:22 BP 105/69 03/16/22 08:22 Pulse Ox 98 03/16/22 08:22 BMI result Body Mass Index 22.1 <[facility] - Last Filed: 03/16/22 09:20> Appearance: Alert. Oriented X3. No acute distress. Eyes: Pupils equal, round and reactive to light. ENT: Pharynx normal. Neck: Normal inspection. Neck supple. CVS: Normal heart rate and rhythm. Pulses normal. Respiratory: No respiratory distress. Breath sounds normal. Abdomen: Soft and nontender. Skin: Skin warm and dry. Normal skin color. Normal skin turgor. Extremities: No lower extremity edema. Gait well-balanced well coordinated. Neuro: No motor deficit. No sensory deficit. Cranial nerves 2-12 intact <Shell Soliman NP - Last Filed: 03/16/22 02:09> Course Course Course Narrative: 36-year-old female presents via EMS for suicidal ideation. Patient is well-known to this facility, was evaluated on 03/08/2022 for overdose and suicide attempt. Patient was admitted to Psychiatry and discharged on 03/14/2022. Will order labs, tox screen. 01:00 tox screen positive for opioids, fentanyl, cocaine and marijuana. ETOH is negative. Physician observation started at this time. Crisis consult pending. <Shell Soliman NP - Last Filed: 03/16/22 02:09> Reevaluation(s) Reevaluation #1: Physician observation continued. She is still pending [facility] evaluation. Utox ++ fentanyl, opiates, cocaine, and THC. Home methadone dose confirmed and ordered along with her other medications. Will continue to monitor. <[facility] - Last Filed: 03/16/22 09:20> Time: 09:18 <[facility] - Last Filed: 03/16/22 09:20> MDM - Psych Differential Diagnosis Differential diagnosis: Likely suicidal ideation, depression, drug-induced psychotic disorder and substance abuse <Shell Soliman NP - Last Filed: 03/16/22 02:09> Medical Records Attestation: I reviewed the patient's medical records. <Shell Soliman NP - Last Filed: 04/27/22 02:09> Lab Data Attestation: I reviewed the patient's lab results. <Shell Soliman NP - Last Filed: 03/16/22 02:09> Labs: Lab Results 03/16/22 03/16/22 03/16/22 Range/Units 00:00 00:00 00:00 Urine Color YELLOW Urine Appearance CLEAR Urine pH 7.0 (5.0-8.0) Ur Specific [place] 1.020 (1.005-1.025) Urine Protein 2+ H (NEG-TRACE) MG/DL Urine Glucose (UA) NEG (NEG) MG/DL Urine Ketones NEG (NEG) MG/DL Urine Blood NEG (NEG) Urine Nitrite NEG (NEG) Ur Leukocyte Esterase NEG (NEG) Urine RBC 0-2 (0) /HPF Urine WBC 0-2 (0-4) /HPF Ur Squamous Epith Cells 1+ /LPF Urine Bacteria TRACE /LPF Urine Test NEGATIVE (NEGATIVE) Urine Opiates Screen (Not Detect) Urine Fentanyl Screen (Not Detect) Ur Barbiturates Screen (Not Detect) Ur Phencyclidine Scrn (Not Detect) Ur Amphetamines Screen (Not Detect) U Benzodiazepines Scrn (Not Detect) Urine Cocaine Screen (Not Detect) U Marijuana (THC) Screen (Not Detect) Ethyl Alcohol mg/dL COVID-19 (CHARLY) Negative (Negative) COVID-19 Clin Com See Note 03/16/22 03/16/22 Range/Units 00:03 00:17 Urine Color Urine Appearance Urine pH (5.0-8.0) Ur Specific [place] (1.005-1.025) Urine Protein (NEG-TRACE) MG/DL Urine Glucose (UA) (NEG) MG/DL Urine Ketones (NEG) MG/DL Urine Blood (NEG) Urine Nitrite (NEG) Ur Leukocyte Esterase (NEG) Urine RBC (0) /HPF Urine WBC (0-4) /HPF Ur Squamous Epith Cells /LPF Urine Bacteria /LPF Urine Test (NEGATIVE) Urine Opiates Screen POSITIVE H (Not Detect) Urine Fentanyl Screen POSITIVE H (Not Detect) Ur Barbiturates Screen Not Detected (Not Detect) Ur Phencyclidine Scrn Not Detected (Not Detect) Ur Amphetamines Screen Not Detected (Not Detect) U Benzodiazepines Scrn Not Detected (Not Detect) Urine Cocaine Screen POSITIVE H (Not Detect) U Marijuana (THC) Screen POSITIVE H (Not Detect) Ethyl Alcohol < 10 mg/dL COVID-19 (CHARLY) (Negative) COVID-19 Clin Com <Shell Soliman NP - Last Filed: 03/16/22 02:09> Lab Results 03/16/22 03/16/22 03/16/22 Range/Units 00:00 00:00 00:00 Urine Color YELLOW Urine Appearance CLEAR Urine pH 7.0 (5.0-8.0) Ur Specific [place] 1.020 (1.005-1.025) Urine Protein 2+ H (NEG-TRACE) MG/DL Urine Glucose (UA) NEG (NEG) MG/DL Urine Ketones NEG (NEG) MG/DL Urine Blood NEG (NEG) Urine Nitrite NEG (NEG) Ur Leukocyte Esterase NEG (NEG) Urine RBC 0-2 (0) /HPF Urine WBC 0-2 (0-4) /HPF Ur Squamous Epith Cells 1+ /LPF Urine Bacteria TRACE /LPF Urine Test NEGATIVE (NEGATIVE) Urine Opiates Screen (Not Detect) Urine Fentanyl Screen (Not Detect) Ur Barbiturates Screen (Not Detect) Ur Phencyclidine Scrn (Not Detect) Ur Amphetamines Screen (Not Detect) U Benzodiazepines Scrn (Not Detect) Urine Cocaine Screen (Not Detect) U Marijuana (THC) Screen (Not Detect) Ethyl Alcohol mg/dL COVID-19 (CHARLY) Negative (Negative) COVID-19 Clin Com See Note 03/16/22 03/16/22 Range/Units 00:03 00:17 Urine Color Urine Appearance Urine pH (5.0-8.0) Ur Specific [place] (1.005-1.025) Urine Protein (NEG-TRACE) MG/DL Urine Glucose (UA) (NEG) MG/DL Urine Ketones (NEG) MG/DL Urine Blood (NEG) Urine Nitrite (NEG) Ur Leukocyte Esterase (NEG) Urine RBC (0) /HPF Urine WBC (0-4) /HPF Ur Squamous Epith Cells /LPF Urine Bacteria /LPF Urine Test (NEGATIVE) Urine Opiates Screen POSITIVE H (Not Detect) Urine Fentanyl Screen POSITIVE H (Not Detect) Ur Barbiturates Screen Not Detected (Not Detect) Ur Phencyclidine Scrn Not Detected (Not Detect) Ur Amphetamines Screen Not Detected (Not Detect) U Benzodiazepines Scrn Not Detected (Not Detect) Urine Cocaine Screen POSITIVE H (Not Detect) U Marijuana (THC) Screen POSITIVE H (Not Detect) Ethyl Alcohol < 10 mg/dL COVID-19 (CHARLY) (Negative) COVID-19 Clin Com <[facility] - Last Filed: 03/16/22 09:20> Discharge Plan Discharge Clinical Impression: Polysubstance abuse, Depression with suicidal ideation <Shell Soliman NP - Last Filed: 03/16/22 02:09> Patient Disposition: Still a Patient <Shell Soliman NP - Last Filed: 03/16/22 02:09> Prescriptions: No Action cyclobenzaprine 10 mg tablet 1 tab PO BID PRN (Reason: muscle spasm) 0RF docusate sodium 100 mg capsule 1 cap PO BID PRN (Reason: Constipation) 0RF clonidine HCl 0.1 mg Tablet 0.1 mg PO TID Qty: 45 0RF Protocol: Hold for SBP< HOLD for SBP < : 90 doxepin 25 mg Capsule 25 mg PO BEDTIME Qty: 30 0RF oxcarbazepine 300 mg Tablet 300 mg PO BID Qty: 60 0RF methadone [Methadose] 10 mg/mL Concentrate 105 mg PO DAILY Qty: 0 0RF thiamine mononitrate (vit B1) 100 mg Tablet 100 mg PO DAILY Qty: 30 0RF multivitamin [Daily-Ketan] Tablet 1 tab PO DAILY Qty: 30 0RF <Shell Soliman NP - Last Filed: 03/16/22 02:09>
[2022-03-16 00:13] LABS: Appearance Urine CLEAR; Color Urine YELLOW; Glucose Urine UA NEG (NEG); Leukocyte Esterase Urine NEG (NEG); Nitrite Urine NEG (NEG); Urine Blood NEG (NEG); Urine Ketones NEG (NEG); Urine Protein 2+ MG/DL (NEG-TRACE)
[2022-03-16 00:17] LABS: UPreg QC Valid YES; Urine Pregnancy NEGATIVE (NEGATIVE)
[2022-03-16 00:25] LABS: Bacteria Urine TRACE /LPF; RBC Urine 0-2 /HPF (0); WBC Urine 0-2 /HPF (0-4)
[2022-03-16 00:27] LABS: COVID-19 Test Negative (Negative); Squamous Epithelial Cell Urine 1+ /LPF
[2022-03-16 00:27] LABS: Amphetamine Screen Urine Not Detected (Not Detect); Barbiturates, Urine Not Detected (Not Detect); Benzodiazepines Screen Urine Not Detected (Not Detect); Cannabinoid Screen Urine POSITIVE (Not Detect); Cocaine Screen Urine POSITIVE (Not Detect); Fentanyl, urine POSITIVE (Not Detect); Opiate Screen Urine POSITIVE (Not Detect); Phencyclidine Screen Urine Not Detected (Not Detect)
[2022-03-16 00:43] LABS: Ethanol < 10 mg/dL
--- NOTE | 2022-03-16 06:44 | PC.NURSE ---
Patient slept through the night, no distress observed/reported, medication rec completed/MAR updated including Methadone dose, [facility] referral completed/confirmed/pending ETA, VSS, behavior non concerning at this time, will continue to monitor.
--- NOTE | 2022-03-16 07:01 | PC.NURSE ---
patient appears to remain asleep at present respirations are even and unlabored patient appears in no distress
[2022-03-16] MEDS: Thiamine HCL 100 MG TABLET PO (08:18)
[2022-03-16] MEDS: methADONE HCl 20 MG/2 ML ORAL.CONC 100 MG PO (08:18)
[2022-03-16] MEDS: Multivitamin TABLET 1 TAB PO (08:18)
[2022-03-16] MEDS: OXcarbazepine 300 MG TABLET PO ×2 (08:18→21:40)
[2022-03-16] MEDS: cloNIDine HCL 0.1 MG TABLET PO ×2 (08:18→21:41)
[2022-03-16 08:22] VITALS: BP 105/69; PULSE 54; RESP 18; TEMP 36.7; O2SAT 98
[2022-03-16 16:11] VITALS: BP 107/60; PULSE 54; RESP 16; TEMP 36.8; O2SAT 99
[2022-03-16 18:03] LABS: MANUAL DIFF FLAG NO
[2022-03-16 18:12] LABS: Basophils Percent Auto 0.7 % (0-2); Eosinophils Absolute Auto 0.2 X10*3/uL (0.0-0.4); Hematocrit 44.9 % (37.0-47.0); Hemoglobin 14.5 g/dl (12.0-16.0); Imm Gran Abs Auto 0.03 X10*3/uL (0.00-0.03); Imm Gran Pct Auto 0.5 % (0.0-0.4); Lymphocytes Absolute Auto 1.4 X10*3/uL (1.2-4.9); Lymphocytes Percent Auto 23.4 % (20-40); Mean Corpuscular HGB Conc 32.3 g/dl (31.0-35.0); Mean Corpuscular Volume 86.7 fL (80.0-98.0); Mean Platelet Volume 9.8 fL (9.4-12.3); Monocytes Absolute Auto 0.5 X10*3/uL (0.1-1.2); Monocytes Percent Auto 9.3 % (2-11); Neutrophils Absolute Auto 3.6 x10*3/uL (2.0-8.3); Neutrophils Percent Auto 62.1 % (45-73); Platelet Count 198 X10*3/uL (160-400); Red Blood Count 5.18 X10*6/uL (4.20-5.50); Red Cell Distribution Width 12.9 % (11.0-16.0); White Blood Count 5.8 X10*3/uL (4.8-10.8)
[2022-03-16 18:21] LABS: Alanine Aminotransferase 63 U/L (0-31); Albumin Level 3.8 g/dL (3.5-5.0); Alkaline Phosphatase 77 U/L (39-117); Anion Gap 12 (12-20); Aspartate Amino Transferase 55 U/L (5-31); Bilirubin Total 0.4 mg/dL (0.0-1.0); Blood Urea Nitrogen 24 mg/dL (9-16); Calcium 9.1 mg/dL (8.4-10.2); Carbon Dioxide 30 mmol/L (22-29); Chloride 99 mmol/L (96-108); Creatinine Clr Calc Pharmacy 97.1; Estimated Glomerular Filt Rate > 60; Glucose Fasting 77 mg/dL (60-99); Potassium 4.5 mmol/L (3.3-5.1); Sodium 136 mmol/L (135-145); Total Protein 7.7 g/dL (6.5-8.0)
[2022-03-16] MEDS: Doxepin HCl 25 MG CAPSULE PO (21:40)
[2022-03-16 21:43] VITALS: BP 128/65; PULSE 54; RESP 18; O2SAT 100
[2022-03-16 22:55] VITALS: BP 111/59; PULSE 66; TEMP 37.1; O2SAT 98
[2022-03-16 22:56] VITALS: BMI 26.1
[2022-03-17] MEDS: LORazepam 1 MG TABLET 2 MG PO (00:18)
[2022-03-17] MEDS: traZODone HCL 100 MG TABLET PO (00:19)
[2022-03-17] MEDS: Acetaminophen 325 MG TABLET 650 MG PO ×2 (00:19→09:27)
[2022-03-17] MEDS: Cyclobenzaprine HCl 10 MG TABLET PO ×2 (00:19→21:02)
--- NOTE | 2022-03-17 03:48 | PC.ADMIT ---
patient signed CV then requested 3 day notice on arrival to unit. patient was discharged from the 5th floor on 03/14/22 and returned to the ER on 03/15 at 2300. patient was admitted to [facility]3 on 03/16/22. patient was a referral from the CARE team. patient identified using heroin, cocaine, fentanyl ''it wasn't something I went out looking for it was probably in the heroin'' and marijuana. also reports drinking alcohol ''carrying a pint around and constantly sipping on it'' reports history of seizure w/d. reports missing intake appointment with [facility] PSYCHOLOGIST DIRECTOR scheduled on 03/16/22. identifies issues with due to drug use. reports feeling overwhelmed with quick relapse. has multiple track julien on arms and face has markings of skin lesions. no changes in medical status since dc on 03/14/22. oriented to unit. medications reconciled in the ER, safety tool completed and treatment plan initiated.
--- NOTE | 2022-03-17 04:08 | PC.NURSE ---
patient requested not to be woke up at night for CIWA re assessment if asleep. did receive ativan 2 mg prior to bed.
[2022-03-17 06:00] VITALS: BP 99/56; PULSE 61; RESP 16; TEMP 36.6; O2SAT 99
[2022-03-17 07:00] VITALS: BMI 26.0
[2022-03-17] MEDS: Thiamine HCL 100 MG TABLET PO (09:27)
[2022-03-17] MEDS: OXcarbazepine 300 MG TABLET PO (09:27)
[2022-03-17] MEDS: Multivitamin TABLET 1 TAB PO (09:28)
[2022-03-17] MEDS: methADONE HCl 20 MG/2 ML ORAL.CONC 100 MG PO (09:28)
[2022-03-17 10:23] LABS: Alanine Aminotransferase 61 U/L (0-31); Albumin Level 3.7 g/dL (3.5-5.0); Alkaline Phosphatase 77 U/L (39-117); Anion Gap 12 (12-20); Aspartate Amino Transferase 51 U/L (5-31); Bilirubin Total 0.6 mg/dL (0.0-1.0); Blood Urea Nitrogen 22 mg/dL (9-16); Calcium 9.2 mg/dL (8.4-10.2); Carbon Dioxide 30 mmol/L (22-29); Chloride 100 mmol/L (96-108); Cholesterol 170 mg/dL; Creatinine Clr Calc Pharmacy 97.3; Estimated Glomerular Filt Rate > 60; Glucose Fasting 67 mg/dL (60-99); HDL Cholesterol 53 mg/dL; LDL Cholesterol Calculated 103 mg/dl; Sodium 138 mmol/L (135-145); Total Protein 7.4 g/dL (6.5-8.0); Triglycerides 74 mg/dL
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
[2022-03-17] MEDS: cloNIDine HCL 0.1 MG TABLET PO ×3 (10:36→21:02)
[2022-03-17] MEDS: hydrOXYzine HCL 25 MG TABLET PO (13:26)
[2022-03-17 15:41] VITALS: BP 105/59; PULSE 60
--- NOTE | 2022-03-17 16:43 | PC.NURSE ---
Letitia Wesley APRN gave verbal permission to d/c PB.
[2022-03-17 18:00] VITALS: BP 105/60; PULSE 69; TEMP 36.6; O2SAT 98
[2022-03-17] MEDS: Topiramate 25 MG TABLET PO (21:02)
[2022-03-17] MEDS: Doxepin HCl 25 MG CAPSULE 50 MG PO (21:02)
[2022-03-17] MEDS: LORazepam 0.5 MG TABLET PO (21:03)
[2022-03-18] MEDS: traZODone HCL 100 MG TABLET PO ×3 (01:32→23:30)
[2022-03-18 08:22] VITALS: BP 111/50; PULSE 79; RESP 16; TEMP 36.8; O2SAT 98
[2022-03-18] MEDS: cloNIDine HCL 0.1 MG TABLET PO ×3 (08:29→21:09)
[2022-03-18] MEDS: Multivitamin TABLET 1 TAB PO (08:29)
[2022-03-18] MEDS: Thiamine HCL 100 MG TABLET PO (08:29)
[2022-03-18] MEDS: methADONE HCl 20 MG/2 ML ORAL.CONC 100 MG PO (08:30)
[2022-03-18] MEDS: LORazepam 0.5 MG TABLET PO ×2 (10:52→21:11)
--- NOTE | 2022-03-18 10:56 | PC.NURSE ---
Patient retracted 3 day notice. Legal status is now a Conditional Voluntary.
--- NOTE | 2022-03-18 12:11 | HO.PSYCHPN ---
Subjective Subjective Date of Service: 03/18/22 Reason For Visit: si Subjective Notes: Conditional Voluntary Interim History: Pt reports feeling anxious. She also reports poor sleep. She reports feeling less depressed. No SI/HI. ambivalent about going to [facility] program. Mostly in her room, eating well. encouraged to attend groups. No behavioral concerns Medication Compliance: Yes Side effects from medications: No Review of Systems Review of Systems Constitutional: No Fever, No Chills ENT/Mouth: No Ear Pain, No Nasal Congestion, No sore throat Eyes: No Eye Pain, No Swelling, No Redness Cardiovascular: No Chest Pain, No SOB Respiratory: No Cough, No Sputum, No Dyspnea Gastrointestinal: No Nausea, No Vomiting, No Diarrhea, No Hematochezia, No Melena Genitourinary: No Dysuria, No Urinary Frequency, No Hematuria Musculoskeletal: No Myalgias Skin: No Skin Lesions, No rash Neuro: No Weakness, No Numbness, No Paresthesias, No Dizziness, No Headache Psych: positive Anxiety, positive Depression, positive SI, positive polysubstance abuse Heme/Lymph: No Lymphadenopathy Endocrine: No Polyuria, No Polydipsia Yes all other systems are reviewed and are negative Constitutional: Reports fatigue Eyes: Reports no additional eye complaints Cardiovascular: Denies chest pain, Denies chest pain at rest, Denies chest pain with activity, Denies leg edema, Denies lightheadedness and Denies dyspnea Respiratory: Denies dyspnea Gastrointestinal: Denies constipation, Denies GI cramping, Denies diarrhea and Denies vomiting Skin/Breast: Reports system reviewed and no additional complaints, except as docu Endocrine: Reports fatigue Mental Status Exam Mental Status Exam Narrative: Appearance: casually groomed, fair hygiene in NAD, nodding on and off Behavior:cooperative psychomotor:no agitation or retardation noted Speech:clear, normal rate/rhythm/volume, spontaneous Thought process: linear Thought content:no signs of psychosis, craving cocaine, no SI/HI. Mood: anxious Affect: restless, SI:none HI:none VH/AH:none Delusions:none Insight/judgment: fair x 2. Memory/cog: sedated at times, mostly alert, oriented x 3. grossly intact to conversational testing. Diagnostics Vital Signs (24Hr): Vital Signs - 24 hr 03/20/22 08:16 03/20/22 15:19 03/20/22 18:00 Temperature 98.1 F 98.6 F Pulse Rate 78 81 87 Respiratory Rate 16 16 Blood Pressure 93/64 116/62 117/68 Pulse Oximetry 99 99 BMI result Body Mass Index 26.0 Labs Results: 03/16/22 17:57 03/17/22 08:37 Medications Medications Current Medications Acetaminophen (Acetaminophen 325 Mg Tablet) 650 mg PO Q6H PRN PRN Reason: Headache/Pain Mild Scale (1-3) Last Admin: 03/20/22 08:22 Dose: 650 mg Documented by: Al Hydroxide/Mg Hydroxide (Magnesium Hydrox/Alum Hydrox 30 Ml Oral.Susp) 30 ml PO Q6H PRN PRN Reason: Heartburn/Nausea Last Admin: 03/20/22 17:08 Dose: 30 ml Documented by: Clonidine HCl (Clonidine Hcl 0.1 Mg Tablet) 0.1 mg PO TID [facility]; Protocol Last Admin: 03/20/22 20:22 Dose: 0.1 mg Documented by: Cyclobenzaprine HCl (Cyclobenzaprine Hcl 10 Mg Tablet) 10 mg PO BID PRN PRN Reason: muscle spasm Last Admin: 03/20/22 20:22 Dose: 10 mg Documented by: Docusate Sodium (Docusate Sodium 100 Mg Capsule) 100 mg PO BID PRN PRN Reason: Constipation Last Admin: 03/19/22 21:07 Dose: 100 mg Documented by: Doxepin HCl (Doxepin Hcl 25 Mg Capsule) 75 mg PO BEDTIME [facility] Last Admin: 03/20/22 20:21 Dose: 75 mg Documented by: Hydroxyzine HCl (Hydroxyzine Hcl 25 Mg Tablet) 25 mg PO Q6H PRN PRN Reason: Anxiety Last Admin: 03/17/22 13:26 Dose: 25 mg Documented by: Lorazepam (Lorazepam 0.5 Mg Tablet) 0.5 mg PO Q8H PRN PRN Reason: Anxiety Last Admin: 03/20/22 20:22 Dose: 0.5 mg Documented by: Magnesium Hydroxide (Milk Of Magnesia 30 Ml Oral.Susp) 30 ml PO DAILY PRN PRN Reason: Constipation Methadone HCl (Methadone Hcl 20 Mg/2 Ml Oral.Conc) 100 mg PO DAILY [facility] Last Admin: 03/20/22 08:23 Dose: 100 mg Documented by: Multivitamins/Vitamin C (Multivitamin Tablet) 1 tab PO DAILY [facility] Last Admin: 03/20/22 08:22 Dose: 1 tab Documented by: Thiamine HCl (Thiamine Hcl 100 Mg Tablet) 100 mg PO DAILY [facility] Last Admin: 03/20/22 08:23 Dose: 100 mg Documented by: Topiramate (Topiramate 25 Mg Tablet) 50 mg PO BEDTIME [facility] Last Admin: 03/20/22 20:22 Dose: 50 mg Documented by: Trazodone HCl (Trazodone Hcl 100 Mg Tablet) 100 mg PO BEDTIME PRN PRN Reason: Insomnia Last Admin: 03/20/22 23:14 Dose: 100 mg Documented by: Allergies Allergies Allergy/AdvReac Type Severity Reaction Status Date / Time codeine [CODEINE] Allergy Intermediate RASH Verified 03/15/22 14:25 quetiapine [From SEROQUEL] Allergy Intermediate RESTLESS Verified 03/15/22 14:25 LEG SYNDROME Assessment & Plan Assessment & Plan (1) Bipolar 2 disorder, major depressive episode: Status: Acute Code(s): F31.81 - Bipolar II disorder (2) Opioid use disorder: Status: Acute Code(s): F11.90 - Opioid use, unspecified, uncomplicated (3) Alcohol use disorder, moderate, dependence: Status: Acute Code(s): F10.20 - Alcohol dependence, uncomplicated (4) Cocaine use disorder, severe, dependence: Status: Acute Code(s): F14.20 - Cocaine dependence, uncomplicated Plan Mrs. Sosa is a 36 year-old woman with hx of Bipolar Disorder, cocaine, opioid and alcohol abuse. She is known to this unit through several admisssion with similar presentation. She was discharged from on 03/14/22 after she signed 3 day noticed and decline referrals to substance use treatment programs. She self presented to [facility] following day after discharge after using heroin, fentanyl, cocaine. She reports also using alcohol but suspect to less extend than what she reports. She does not have s/s of alcohol withdrawal at this point but reports feeling very anxious, craving cocaine. We discussed risks, benefits and alternative treatment options. She agreed to start topamax for mood and cocaine cravings. She agrees to increase doxepin to address depression and sleep. PLAN 1. admit to [facility], CV (pt signed 3 day), 15 min checks for safety 2. d/c trileptal, start topamax 25mg po qhs, increase doxepine to 50mg po qhs. 3. obtain collateral information 4. Aftercare planning- pt declines referrals to [facility], but states she is open to IOP. 03/18- increase doxepine to 75mg po qhs. increase topamax to 50mg po qhs. ativan only while here low dose. continue suboxone. I spent minutes with the patient and/or on the patient floor today, greater than?50% of which was spent counseling/coordinating care. Reason for contiued inpatient stay Substantial Risk for: harm to self
[2022-03-18 15:20] VITALS: BP 116/56; PULSE 73
[2022-03-18 21:05] VITALS: BP 116/59; PULSE 82; RESP 18; TEMP 36.4; O2SAT 100
[2022-03-18] MEDS: Topiramate 25 MG TABLET 50 MG PO (21:10)
[2022-03-18] MEDS: Doxepin HCl 25 MG CAPSULE 75 MG PO (21:10)
[2022-03-18] MEDS: Acetaminophen 325 MG TABLET 650 MG PO (21:10)
[2022-03-18] MEDS: Cyclobenzaprine HCl 10 MG TABLET PO (21:11)
[2022-03-18] MEDS: Docusate Sodium 100 MG CAPSULE PO (21:11)
[2022-03-19 09:00] VITALS: BP 103/53; PULSE 91; RESP 17; TEMP 36.6; O2SAT 100
[2022-03-19] MEDS: methADONE HCl 20 MG/2 ML ORAL.CONC 100 MG PO (09:06)
[2022-03-19] MEDS: Multivitamin TABLET 1 TAB PO (09:06)
[2022-03-19] MEDS: Thiamine HCL 100 MG TABLET PO (09:06)
[2022-03-19] MEDS: LORazepam 0.5 MG TABLET PO ×2 (09:06→21:07)
[2022-03-19] MEDS: cloNIDine HCL 0.1 MG TABLET PO ×3 (09:06→21:05)
--- NOTE | 2022-03-19 10:14 | P.PNPSI_ITS ---
Subjective Subjective Date of Service: 03/19/22 Reason For Visit: si Subjective Notes: Conditional Voluntary Interim History: Pt reports feeling less anxious, calmer, She also reports less symptoms of depression. She continues to need additional trazodone for sleep in addition to doxepine. No SI/HI. Mostly in her room. No behavioral concerns. Medication Compliance: Yes Side effects from medications: No Review of Systems Review of Systems Constitutional: No Fever, No Chills ENT/Mouth: No Ear Pain, No Nasal Congestion, No sore throat Eyes: No Eye Pain, No Swelling, No Redness Cardiovascular: No Chest Pain, No SOB Respiratory: No Cough, No Sputum, No Dyspnea Gastrointestinal: No Nausea, No Vomiting, No Diarrhea, No Hematochezia, No Melena Genitourinary: No Dysuria, No Urinary Frequency, No Hematuria Musculoskeletal: No Myalgias Skin: No Skin Lesions, No rash Neuro: No Weakness, No Numbness, No Paresthesias, No Dizziness, No Headache Psych: positive Anxiety, positive Depression, positive SI, positive polysubstance abuse Heme/Lymph: No Lymphadenopathy Endocrine: No Polyuria, No Polydipsia Yes all other systems are reviewed and are negative Constitutional: Reports fatigue Eyes: Reports no additional eye complaints Cardiovascular: Denies chest pain, Denies chest pain at rest, Denies chest pain with activity, Denies leg edema, Denies lightheadedness and Denies dyspnea Respiratory: Denies dyspnea Gastrointestinal: Denies constipation, Denies GI cramping, Denies diarrhea and Denies vomiting Skin/Breast: Reports system reviewed and no additional complaints, except as docu Endocrine: Reports fatigue Mental Status Exam Mental Status Exam Narrative: Appearance: casually groomed, fair hygiene in NAD, nodding on and off Behavior:cooperative psychomotor:no agitation or retardation noted Speech:clear, normal rate/rhythm/volume, spontaneous Thought process: linear Thought content:no signs of psychosis, craving cocaine, no SI/HI. Mood: anxious Affect: restless, SI:none HI:none VH/AH:none Delusions:none Insight/judgment: fair x 2. Memory/cog: sedated at times, mostly alert, oriented x 3. grossly intact to conversational testing. Diagnostics Vital Signs (24Hr): Vital Signs - 24 hr 03/20/22 08:16 03/20/22 15:19 03/20/22 18:00 Temperature 98.1 F 98.6 F Pulse Rate 78 81 87 Respiratory Rate 16 16 Blood Pressure 93/64 116/62 117/68 Pulse Oximetry 99 99 BMI result Body Mass Index 26.0 Labs Results: 03/16/22 17:57 03/17/22 08:37 Medications Medications Current Medications Acetaminophen (Acetaminophen 325 Mg Tablet) 650 mg PO Q6H PRN PRN Reason: Headache/Pain Mild Scale (1-3) Last Admin: 03/20/22 08:22 Dose: 650 mg Documented by: Al Hydroxide/Mg Hydroxide (Magnesium Hydrox/Alum Hydrox 30 Ml Oral.Susp) 30 ml PO Q6H PRN PRN Reason: Heartburn/Nausea Last Admin: 03/20/22 17:08 Dose: 30 ml Documented by: Clonidine HCl (Clonidine Hcl 0.1 Mg Tablet) 0.1 mg PO TID [facility]; Protocol Last Admin: 03/20/22 20:22 Dose: 0.1 mg Documented by: Cyclobenzaprine HCl (Cyclobenzaprine Hcl 10 Mg Tablet) 10 mg PO BID PRN PRN Reason: muscle spasm Last Admin: 03/20/22 20:22 Dose: 10 mg Documented by: Docusate Sodium (Docusate Sodium 100 Mg Capsule) 100 mg PO BID PRN PRN Reason: Constipation Last Admin: 03/19/22 21:07 Dose: 100 mg Documented by: Doxepin HCl (Doxepin Hcl 25 Mg Capsule) 75 mg PO BEDTIME [facility] Last Admin: 03/20/22 20:21 Dose: 75 mg Documented by: Hydroxyzine HCl (Hydroxyzine Hcl 25 Mg Tablet) 25 mg PO Q6H PRN PRN Reason: Anxiety Last Admin: 03/17/22 13:26 Dose: 25 mg Documented by: Lorazepam (Lorazepam 0.5 Mg Tablet) 0.5 mg PO Q8H PRN PRN Reason: Anxiety Last Admin: 03/20/22 20:22 Dose: 0.5 mg Documented by: Magnesium Hydroxide (Milk Of Magnesia 30 Ml Oral.Susp) 30 ml PO DAILY PRN PRN Reason: Constipation Methadone HCl (Methadone Hcl 20 Mg/2 Ml Oral.Conc) 100 mg PO DAILY [facility] Last Admin: 03/20/22 08:23 Dose: 100 mg Documented by: Multivitamins/Vitamin C (Multivitamin Tablet) 1 tab PO DAILY [facility] Last Admin: 03/20/22 08:22 Dose: 1 tab Documented by: Thiamine HCl (Thiamine Hcl 100 Mg Tablet) 100 mg PO DAILY [facility] Last Admin: 03/20/22 08:23 Dose: 100 mg Documented by: Topiramate (Topiramate 25 Mg Tablet) 50 mg PO BEDTIME [facility] Last Admin: 03/20/22 20:22 Dose: 50 mg Documented by: Trazodone HCl (Trazodone Hcl 100 Mg Tablet) 100 mg PO BEDTIME PRN PRN Reason: Insomnia Last Admin: 03/20/22 23:14 Dose: 100 mg Documented by: Allergies Allergies Allergy/AdvReac Type Severity Reaction Status Date / Time codeine [CODEINE] Allergy Intermediate RASH Verified 03/15/22 14:25 quetiapine [From SEROQUEL] Allergy Intermediate RESTLESS Verified 03/15/22 14:25 LEG SYNDROME Assessment & Plan Assessment & Plan (1) Bipolar 2 disorder, major depressive episode: Status: Acute Code(s): F31.81 - Bipolar II disorder (2) Opioid use disorder: Status: Acute Code(s): F11.90 - Opioid use, unspecified, uncomplicated (3) Alcohol use disorder, moderate, dependence: Status: Acute Code(s): F10.20 - Alcohol dependence, uncomplicated (4) Cocaine use disorder, severe, dependence: Status: Acute Code(s): F14.20 - Cocaine dependence, uncomplicated Plan Mrs. Sosa is a 36 year-old woman with hx of Bipolar Disorder, cocaine, opioid and alcohol abuse. She is known to this unit through several admisssion with similar presentation. She was discharged from on 03/14/22 after she signed 3 day noticed and decline referrals to substance use treatment programs. She self presented to [facility] following day after discharge after using heroin, fentanyl, cocaine. She reports also using alcohol but suspect to less extend than what she reports. She does not have s/s of alcohol withdrawal at this point but reports feeling very anxious, craving cocaine. We discussed risks, benefits and alternative treatment options. She agreed to start topamax for mood and cocaine cravings. She agrees to increase doxepin to address depression and sleep. PLAN 1. admit to [facility], CV (pt signed 3 day), 15 min checks for safety 2. d/c trileptal, start topamax 25mg po qhs, increase doxepine to 50mg po qhs. 3. obtain collateral information 4. Aftercare planning- pt declines referrals to [facility], but states she is open to IOP. 03/18- increase doxepine to 75mg po qhs. increase topamax to 50mg po qhs. ativan only while here low dose. continue suboxone. I spent minutes with the patient and/or on the patient floor today, greater than?50% of which was spent counseling/coordinating care. Reason for contiued inpatient stay Substantial Risk for: harm to self
[2022-03-19 20:39] VITALS: BP 98/54; PULSE 85; RESP 17; TEMP 36.4; O2SAT 100
[2022-03-19] MEDS: Cyclobenzaprine HCl 10 MG TABLET PO (21:05)
[2022-03-19] MEDS: Doxepin HCl 25 MG CAPSULE 75 MG PO (21:05)
[2022-03-19] MEDS: Acetaminophen 325 MG TABLET 650 MG PO (21:06)
[2022-03-19] MEDS: Topiramate 25 MG TABLET 50 MG PO (21:06)
[2022-03-19] MEDS: Docusate Sodium 100 MG CAPSULE PO (21:07)
[2022-03-19] MEDS: traZODone HCL 100 MG TABLET PO (21:08)
[2022-03-20] MEDS: traZODone HCL 100 MG TABLET PO ×3 (00:05→23:14)
[2022-03-20 08:16] VITALS: BP 93/64; PULSE 78; RESP 16; TEMP 36.7; O2SAT 99
[2022-03-20] MEDS: cloNIDine HCL 0.1 MG TABLET PO ×3 (08:22→20:22)
[2022-03-20] MEDS: Acetaminophen 325 MG TABLET 650 MG PO (08:22)
[2022-03-20] MEDS: Multivitamin TABLET 1 TAB PO (08:22)
[2022-03-20] MEDS: Thiamine HCL 100 MG TABLET PO (08:23)
[2022-03-20] MEDS: methADONE HCl 20 MG/2 ML ORAL.CONC 100 MG PO (08:23)
[2022-03-20] MEDS: LORazepam 0.5 MG TABLET PO ×2 (10:08→20:22)
--- NOTE | 2022-03-20 11:16 | HO.PSYCHPN ---
Subjective Subjective Date of Service: 03/20/22 Reason For Visit: si Subjective Notes: Conditional Voluntary Interim History: Pt continues to report improvement in anxiety, feels calmer, She also reports less symptoms of depression. She continues to need additional trazodone for sleep in addition to doxepine. No SI/HI. wants to go Monday. Mostly in her room. No behavioral concerns. Medication Compliance: Yes Side effects from medications: No Review of Systems Review of Systems Constitutional: No Fever, No Chills ENT/Mouth: No Ear Pain, No Nasal Congestion, No sore throat Eyes: No Eye Pain, No Swelling, No Redness Cardiovascular: No Chest Pain, No SOB Respiratory: No Cough, No Sputum, No Dyspnea Gastrointestinal: No Nausea, No Vomiting, No Diarrhea, No Hematochezia, No Melena Genitourinary: No Dysuria, No Urinary Frequency, No Hematuria Musculoskeletal: No Myalgias Skin: No Skin Lesions, No rash Neuro: No Weakness, No Numbness, No Paresthesias, No Dizziness, No Headache Psych: positive Anxiety, positive Depression, positive SI, positive polysubstance abuse Heme/Lymph: No Lymphadenopathy Endocrine: No Polyuria, No Polydipsia Yes all other systems are reviewed and are negative Constitutional: Reports fatigue Eyes: Reports no additional eye complaints Cardiovascular: Denies chest pain, Denies chest pain at rest, Denies chest pain with activity, Denies leg edema, Denies lightheadedness and Denies dyspnea Respiratory: Denies dyspnea Gastrointestinal: Denies constipation, Denies GI cramping, Denies diarrhea and Denies vomiting Skin/Breast: Reports system reviewed and no additional complaints, except as docu Endocrine: Reports fatigue Mental Status Exam Mental Status Exam Narrative: Appearance: casually groomed, fair hygiene in NAD, nodding on and off Behavior:cooperative psychomotor:no agitation or retardation noted Speech:clear, normal rate/rhythm/volume, spontaneous Thought process: linear Thought content:no signs of psychosis, craving cocaine, no SI/HI. Mood: anxious Affect: restless, SI:none HI:none VH/AH:none Delusions:none Insight/judgment: fair x 2. Memory/cog: sedated at times, mostly alert, oriented x 3. grossly intact to conversational testing. Diagnostics Vital Signs (24Hr): Vital Signs - 24 hr 03/20/22 08:16 03/20/22 15:19 03/20/22 18:00 Temperature 98.1 F 98.6 F Pulse Rate 78 81 87 Respiratory Rate 16 16 Blood Pressure 93/64 116/62 117/68 Pulse Oximetry 99 99 BMI result Body Mass Index 26.0 Labs Results: 03/16/22 17:57 03/17/22 08:37 Medications Medications Current Medications Acetaminophen (Acetaminophen 325 Mg Tablet) 650 mg PO Q6H PRN PRN Reason: Headache/Pain Mild Scale (1-3) Last Admin: 03/20/22 08:22 Dose: 650 mg Documented by: Al Hydroxide/Mg Hydroxide (Magnesium Hydrox/Alum Hydrox 30 Ml Oral.Susp) 30 ml PO Q6H PRN PRN Reason: Heartburn/Nausea Last Admin: 03/20/22 17:08 Dose: 30 ml Documented by: Clonidine HCl (Clonidine Hcl 0.1 Mg Tablet) 0.1 mg PO TID [facility]; Protocol Last Admin: 03/20/22 20:22 Dose: 0.1 mg Documented by: Cyclobenzaprine HCl (Cyclobenzaprine Hcl 10 Mg Tablet) 10 mg PO BID PRN PRN Reason: muscle spasm Last Admin: 03/20/22 20:22 Dose: 10 mg Documented by: Docusate Sodium (Docusate Sodium 100 Mg Capsule) 100 mg PO BID PRN PRN Reason: Constipation Last Admin: 03/19/22 21:07 Dose: 100 mg Documented by: Doxepin HCl (Doxepin Hcl 25 Mg Capsule) 75 mg PO BEDTIME [facility] Last Admin: 03/20/22 20:21 Dose: 75 mg Documented by: Hydroxyzine HCl (Hydroxyzine Hcl 25 Mg Tablet) 25 mg PO Q6H PRN PRN Reason: Anxiety Last Admin: 03/17/22 13:26 Dose: 25 mg Documented by: Lorazepam (Lorazepam 0.5 Mg Tablet) 0.5 mg PO Q8H PRN PRN Reason: Anxiety Last Admin: 03/20/22 20:22 Dose: 0.5 mg Documented by: Magnesium Hydroxide (Milk Of Magnesia 30 Ml Oral.Susp) 30 ml PO DAILY PRN PRN Reason: Constipation Methadone HCl (Methadone Hcl 20 Mg/2 Ml Oral.Conc) 100 mg PO DAILY [facility] Last Admin: 03/20/22 08:23 Dose: 100 mg Documented by: Multivitamins/Vitamin C (Multivitamin Tablet) 1 tab PO DAILY [facility] Last Admin: 03/20/22 08:22 Dose: 1 tab Documented by: Thiamine HCl (Thiamine Hcl 100 Mg Tablet) 100 mg PO DAILY [facility] Last Admin: 03/20/22 08:23 Dose: 100 mg Documented by: Topiramate (Topiramate 25 Mg Tablet) 50 mg PO BEDTIME [facility] Last Admin: 03/20/22 20:22 Dose: 50 mg Documented by: Trazodone HCl (Trazodone Hcl 100 Mg Tablet) 100 mg PO BEDTIME PRN PRN Reason: Insomnia Last Admin: 03/20/22 23:14 Dose: 100 mg Documented by: Allergies Allergies Allergy/AdvReac Type Severity Reaction Status Date / Time codeine [CODEINE] Allergy Intermediate RASH Verified 03/15/22 14:25 quetiapine [From SEROQUEL] Allergy Intermediate RESTLESS Verified 03/15/22 14:25 LEG SYNDROME Assessment & Plan Assessment & Plan (1) Bipolar 2 disorder, major depressive episode: Status: Acute Code(s): F31.81 - Bipolar II disorder (2) Opioid use disorder: Status: Acute Code(s): F11.90 - Opioid use, unspecified, uncomplicated (3) Alcohol use disorder, moderate, dependence: Status: Acute Code(s): F10.20 - Alcohol dependence, uncomplicated (4) Cocaine use disorder, severe, dependence: Status: Acute Code(s): F14.20 - Cocaine dependence, uncomplicated Plan Mrs. Sosa is a 36 year-old woman with hx of Bipolar Disorder, cocaine, opioid and alcohol abuse. She is known to this unit through several admisssion with similar presentation. She was discharged from on 03/14/22 after she signed 3 day noticed and decline referrals to substance use treatment programs. She self presented to [facility] following day after discharge after using heroin, fentanyl, cocaine. She reports also using alcohol but suspect to less extend than what she reports. She does not have s/s of alcohol withdrawal at this point but reports feeling very anxious, craving cocaine. We discussed risks, benefits and alternative treatment options. She agreed to start topamax for mood and cocaine cravings. She agrees to increase doxepin to address depression and sleep. PLAN 1. admit to , CV (pt signed 3 day), 15 min checks for safety 2. d/c trileptal, start topamax 25mg po qhs, increase doxepine to 50mg po qhs. 3. obtain collateral information 4. Aftercare planning- pt declines referrals to [facility], but states she is open to IOP. 03/18- increase doxepine to 75mg po qhs. increase topamax to 50mg po qhs. ativan only while here low dose. continue suboxone. 03/20 continue tx. I spent minutes with the patient and/or on the patient floor today, greater than?50% of which was spent counseling/coordinating care. Reason for contiued inpatient stay Substantial Risk for: stable for discharge
[2022-03-20 15:19] VITALS: BP 116/62; PULSE 81
[2022-03-20] MEDS: Magnesium Hydrox/Alum Hydrox 30 ML ORAL.SUSP PO (17:08)
[2022-03-20 18:00] VITALS: BP 117/68; PULSE 87; RESP 16; TEMP 37; O2SAT 99
[2022-03-20] MEDS: Doxepin HCl 25 MG CAPSULE 75 MG PO (20:21)
[2022-03-20] MEDS: Cyclobenzaprine HCl 10 MG TABLET PO (20:22)
[2022-03-20] MEDS: Topiramate 25 MG TABLET 50 MG PO (20:22)
[2022-03-21 08:36] VITALS: BP 95/54; PULSE 75; RESP 16; TEMP 36.7; O2SAT 98
[2022-03-21] MEDS: methADONE HCl 20 MG/2 ML ORAL.CONC 100 MG PO (08:38)
[2022-03-21] MEDS: Multivitamin TABLET 1 TAB PO (08:39)
[2022-03-21] MEDS: Acetaminophen 325 MG TABLET 650 MG PO (08:39)
[2022-03-21] MEDS: Thiamine HCL 100 MG TABLET PO (08:39)
[2022-03-21] MEDS: LORazepam 0.5 MG TABLET PO (08:43)
[2022-03-21] MEDS: cloNIDine HCL 0.1 MG TABLET PO (10:07)
--- NOTE | 2022-03-21 13:49 | PM.PSYDC ---
DS: Providers Provider Date of Service: 03/21/22 Date of admission: 03/16/22 22:18 Primary care physician: Unknown Physician DS: Diagnosis Discharge Diagnosis (1) Bipolar 2 disorder, major depressive episode: Status: Acute (2) Opioid use disorder: Status: Acute (3) Alcohol use disorder, moderate, dependence: Status: Acute (4) Cocaine use disorder, severe, dependence: Status: Acute DS: Medications Discharge Medications Home Medications: Home Medications Medication Instructions Recorded Confirmed cyclobenzaprine 10 mg tablet 1 tab PO BID PRN 12/24/21 03/16/22 docusate sodium 100 mg capsule 1 cap PO BID PRN 12/24/21 03/16/22 Previous Rx's Medication Instructions Recorded clonidine HCl 0.1 mg tablet 0.1 mg PO TID #45 tab 03/14/22 methadone 10 mg/mL oral 105 mg (10.5 mL) PO DAILY #0 ml 03/14/22 concentrate (Methadose) multivitamin (Daily-Ketan) 1 tab PO DAILY #30 tab 03/14/22 thiamine mononitrate (vit B1) 100 100 mg PO DAILY #30 tab 03/14/22 mg tablet doxepin 25 mg capsule 75 mg PO BEDTIME #0 cap 03/21/22 topiramate 25 mg tablet 50 mg PO BEDTIME #30 tab 03/21/22 trazodone 100 mg tablet 100 mg PO BEDTIME PRN #30 tab 03/21/22 Mental Status Exam Mental Status Exam Narrative: Appearance: casually groomed, fair hygiene in NAD, nodding on and off Behavior:cooperative psychomotor:no agitation or retardation noted Speech:clear, normal rate/rhythm/volume, spontaneous Thought process: linear Thought content:no signs of psychosis, looking forward to go home, no SI/HI. Mood: better Affect: brighter, non labile SI:none HI:none VH/AH:none Delusions:none Insight/judgment: fair x 2. Memory/cog: sedated at times, mostly alert, oriented x 3. grossly intact to conversational testing. Data Data Completed and Pending Completed studies during hospitalization [Text1]: 03/16/22 03/16/22 03/16/22 00:00 00:00 00:00 WBC RBC Hgb Hct MCV MCH MCHC RDW Plt Count MPV Immature Gran % (Auto) Neut % (Auto) Lymph % (Auto) [place] % (Auto) Eos % (Auto) Baso % (Auto) Lymph # (Auto) [place] # (Auto) Eos # (Auto) Baso # (Auto) Abs Immat Gran (auto) Absolute Neuts (auto) Absolute Nucleated RBC Nucleated RBC % (auto) Sodium Potassium Chloride Carbon Dioxide Anion Gap BUN Creatinine Estim Creat Clear Calc Estimated GFR Fasting Glucose Calcium Total Bilirubin AST ALT Alkaline Phosphatase Total Protein Albumin Triglycerides Cholesterol LDL Cholesterol, Calc HDL Cholesterol Urine Color YELLOW Urine Appearance CLEAR Urine pH 7.0 Ur Specific [place] 1.020 Urine Protein 2+ H Urine Glucose (UA) NEG Urine Ketones NEG Urine Blood NEG Urine Nitrite NEG Ur Leukocyte Esterase NEG Urine RBC 0-2 Urine WBC 0-2 Ur Squamous Epith Cells 1+ Urine Bacteria TRACE Urine Test NEGATIVE Urine Opiates Screen Urine Fentanyl Screen Ur Barbiturates Screen Ur Phencyclidine Scrn Ur Amphetamines Screen U Benzodiazepines Scrn Urine Cocaine Screen U Marijuana (THC) Screen Ethyl Alcohol COVID-19 (CHARLY) Negative COVID-19 Clin Com See Note 03/16/22 03/16/22 03/16/22 00:03 00:17 17:57 WBC 5.8 RBC 5.18 Hgb 14.5 Hct 44.9 MCV 86.7 MCH 28.0 MCHC 32.3 RDW 12.9 Plt Count 198 MPV 9.8 Immature Gran % (Auto) 0.5 H Neut % (Auto) 62.1 Lymph % (Auto) 23.4 [place] % (Auto) 9.3 Eos % (Auto) 4.0 Baso % (Auto) 0.7 Lymph # (Auto) 1.4 [place] # (Auto) 0.5 Eos # (Auto) 0.2 Baso # (Auto) 0.0 Abs Immat Gran (auto) 0.03 Absolute Neuts (auto) 3.6 Absolute Nucleated RBC 0.000 Nucleated RBC % (auto) 0.0 Sodium Potassium Chloride Carbon Dioxide Anion Gap BUN Creatinine Estim Creat Clear Calc Estimated GFR Fasting Glucose Calcium Total Bilirubin AST ALT Alkaline Phosphatase Total Protein Albumin Triglycerides Cholesterol LDL Cholesterol, Calc HDL Cholesterol Urine Color Urine Appearance Urine pH Ur Specific [place] Urine Protein Urine Glucose (UA) Urine Ketones Urine Blood Urine Nitrite Ur Leukocyte Esterase Urine RBC Urine WBC Ur Squamous Epith Cells Urine Bacteria Urine Test Urine Opiates Screen POSITIVE H Urine Fentanyl Screen POSITIVE H Ur Barbiturates Screen Not Detected Ur Phencyclidine Scrn Not Detected Ur Amphetamines Screen Not Detected U Benzodiazepines Scrn Not Detected Urine Cocaine Screen POSITIVE H U Marijuana (THC) Screen POSITIVE H Ethyl Alcohol < 10 COVID-19 (CHARLY) COVID-19 Clin Com 03/16/22 03/17/22 17:57 08:37 WBC RBC Hgb Hct MCV MCH MCHC RDW Plt Count MPV Immature Gran % (Auto) Neut % (Auto) Lymph % (Auto) [place] % (Auto) Eos % (Auto) Baso % (Auto) Lymph # (Auto) [place] # (Auto) Eos # (Auto) Baso # (Auto) Abs Immat Gran (auto) Absolute Neuts (auto) Absolute Nucleated RBC Nucleated RBC % (auto) Sodium 136 138 Potassium 4.5 4.0 Chloride 99 100 Carbon Dioxide 30 H 30 H Anion Gap 12 12 BUN 24 H D 22 H Creatinine 0.65 0.72 Estim Creat Clear Calc 97.1 97.3 Estimated GFR > 60 > 60 Fasting Glucose 77 67 Calcium 9.1 9.2 Total Bilirubin 0.4 0.6 AST 55 H 51 H ALT 63 H 61 H Alkaline Phosphatase 77 D 77 Total Protein 7.7 D 7.4 Albumin 3.8 3.7 Triglycerides 74 Cholesterol 170 D LDL Cholesterol, Calc 103 HDL Cholesterol 53 D Urine Color Urine Appearance Urine pH Ur Specific [place] Urine Protein Urine Glucose (UA) Urine Ketones Urine Blood Urine Nitrite Ur Leukocyte Esterase Urine RBC Urine WBC Ur Squamous Epith Cells Urine Bacteria Urine Test Urine Opiates Screen Urine Fentanyl Screen Ur Barbiturates Screen Ur Phencyclidine Scrn Ur Amphetamines Screen U Benzodiazepines Scrn Urine Cocaine Screen U Marijuana (THC) Screen Ethyl Alcohol COVID-19 (CHARLY) COVID-19 Clin Com DS: Summary Hospital Course Hospital Course: HPI: Mrs. Sosa is a 36 year-old old woman with hx of Bipolar disorder, opioid/cocaine and alcohol disorder who was recently discharge from on 03/14/22 after treatment for depression, SI. She signed 3 day notice which was up on day of discharge. Mrs. Sosa called 911 and was brought to [facility] [place] ED. She reported increase depression SI with plan to OD in context of ongoing substance use and multiple stressors including of her grandmother. In the ED, her utox was positive for opioids, fentanyl, cocaine, cannabis. BAL< 10. On the unit, Mrs. Sosa reports that as soon as she was discharged she relapsed on heroin, fentanyl, cocaine. She also reports drinking alcohol. She reports going to her house with her and that they had an argument. She reports walking around [employer] and then returned home, another argument with , left the house, when to store in [employer] and asked them to call 911. She was transported to [facility] ED where she reported feeling depressed and suicidal. Pt signed a 3 day. She reports this time is open to IOP. She denies suicidal ideation currently on the unit but notes that she is tired of using although not ready to go to residential substance use treatment program. She reports feeling very anxious and craving cocaine, mostly. Past Psychiatric History: IP: 2012, 2000-took OD of Seroquel #180 200 mg tabs-8 day coma-Seroquel now causes RLS OP: No current alliances Trials: Sertraline, Gabapentin, Depakote, Wellbutrin, Thorazine Medical Evaluation Reviewed: Yes HOSPITAL COURSE On the unit, pt was admitted on a CV and placed on 15 minutes checks for safety. Pt initially reported feeling depressed, wanting to make changes in terms of substance use treatment. After discussing risks, benefits and alternative treatment options, she agreed to start topamax for cocaine cravings. She was continued on doxepine for mood and sleep and this medications was titrated to 50mg po qhs. She continued on Methadone. She was seen by addiction team. She signed a 3 day notice reporting she no longer was interested in CSS program and wished to return home without any significant change in plan for retirement treatment. She denied SI/HI. She did not appear internally preoccupied. No signs of aggression towards self or others. There were no incidences of disruptive behaviors nor use of restraints. Her came to visit and denied any safety concerns in terms of suicidal or homicidal ideation and agreed with discharge. He did appear to minimize her substance use as well. Pt was given narcan at time of discharge- harm reduction was discussed at length with Ms. Sosa. Status at Discharge Cognitive/behavioral status at discharge: Pt with brighter affect, non labile. no signs of psychosis nor delusional contented reported or noted. Future oriented in that she is looking forward to see and return home although limited to no insight into extend of substance use. No SI/HI. She was sleeping and eating well. No signs of aggression towards self or others. Harm reduction- narcan given on discharge. Functional status at discharge: independent ambulation Overall status at discharge: patient is progressing back to baseline Time Spent with Patient Time attestation: Total time spent providing and/or coordinating discharge services: Discharge Plan Discharge Patient Disposition: Home, Self-Care Discharge Diagnosis: Bipolar type 2 disorder opioids use disorder cocaine use disorder Referrals: Yuliet Fofana (therapy intake) [Other] - 03/23/22 11:00 am (Telehealth appointment - the therapist will call you on the phone. Once you complete the intake appointment you will be scheduled with a psychiatrist) [facility] ([facility]) [Other] (Referral submitted. They will reach out if you are approved for services. Call the number above if you do not hear from [facility] intake within a few days) [facility] [Other] (Referral submitted, call daily to check on available beds - you will remain on the waitlist as long as you continue to call) Marcie Farias DO [Physician] - 1 Week (Provider would call pt for follow up appt ) Discharge Medications: New doxepin 25 mg Capsule 75 mg PO BEDTIME Qty: 0 0RF topiramate 25 mg Tablet 50 mg PO BEDTIME Qty: 30 0RF trazodone 100 mg Tablet 100 mg PO BEDTIME PRN (Reason: Insomnia) Qty: 30 0RF Continued docusate sodium 100 mg capsule 1 cap PO BID PRN (Reason: Constipation) 0RF clonidine HCl 0.1 mg Tablet 0.1 mg PO TID Qty: 45 0RF Protocol: Hold for SBP< HOLD for SBP < : 90 methadone [Methadose] 10 mg/mL Concentrate 105 mg PO DAILY Qty: 0 0RF thiamine mononitrate (vit B1) 100 mg Tablet 100 mg PO DAILY Qty: 30 0RF multivitamin [Daily-Ketan] Tablet 1 tab PO DAILY Qty: 30 0RF Discontinued doxepin 25 mg Capsule 25 mg PO BEDTIME Qty: 30 0RF oxcarbazepine 300 mg Tablet 300 mg PO BID Qty: 60 0RF Discharge Orders: Discharge Order (Routine); Ordered 03/21/22 Ordered By: Letitia Wesley Diet: regular diet Activity on Discharge: As tolerated Stand Alone Forms: Patient Portal Discharge page, Community Support Care Plan Goals: 1. Maintain mood No SI/HI Harm reduction- marcan given on discharge Health Concerns: follow up with PCP Plan of Treatment: 1. take medications as prescribed. go to nearest ED or call 911 in event of emergency Assessment: Pt with bright affect, non labile. NO SI/HI. harm reduction- narcan given on discharge. She is future oriented. No signs of aggression towards self or others. Discharge Date/Time: 03/21/22 14:00
== END 2022-03-21 14:00 | disposition home or self-care (01) | DRG 885 ==
LOC: HO.ED 03-16 14:33 → HO.PADLT16 03-16 22:24
PROVIDERS: Nurse Practitioner Family; Physician Assistant; Admitting Provider Psychiatry & Neurology Psychiatry; Emergency Provider Internal Medicine; Visit Provider Social Worker
DX: F31.81 Bipolar II disorder (principal); R45.851 Suicidal ideations; F11.20 Opioid dependence, uncomplicated; F14.20 Cocaine dependence, uncomplicated; F10.20 Alcohol dependence, uncomplicated; Z20.822 Contact with and (suspected) exposure to COVID-19; Z62.810 Personal history of physical and sexual abuse in childhood; Z23 Encounter for immunization; Z88.5 Allergy status to narcotic agent; Z88.8 Allergy status to other drugs, medicaments and biological substances; Z79.899 Other long term (current) drug therapy
CPT/HCPCS: 36415; 80053; 80061; 80307; 81001; 81025; 82077; 85025; 87635; 90686; 93005; 99285

== ENCOUNTER 2022-03-22 16:07 | Emergency (ER) | payer OTHER, SELFPAY | END 2022-03-22 18:59 | disposition left against medical advice (07) | PROVIDERS: Emergency Provider Emergency Medicine | DX: Z04.9 Encounter for examination and observation for unspecified reason (principal) ==

== ENCOUNTER 2022-03-27 11:42 | Emergency (ER) | payer OTHER, SELFPAY ==
[2022-03-27 11:48] VITALS: BP 150/91; PULSE 110; RESP 20; TEMP 36.8; O2SAT 98; BMI 24.7
--- NOTE | 2022-03-27 11:51 | ECG_ITS ---
Test Reason : DRUG OD Blood Pressure : / mmHG Vent. Rate : 103 BPM Atrial Rate : 103 BPM P-R Int : 126 ms QRS Dur : 084 ms QT Int : 384 ms P-R-T Axes : 068 073 061 degrees QTc Int : 503 ms Sinus tachycardia Otherwise normal ECG When compared with ECG of 16-MAR-2022 14:54, Vent. rate has increased BY 54 BPM Nonspecific T wave abnormality now evident in Anterior leads Referred By: Arian Vogel Electronically Signed By:SHANNA PRICE MD
--- NOTE | 2022-03-27 11:53 | ED_ITS ---
HPI - Psych General Chief Complaint: Anxiety Stated Complaint: OD ON BP MEDS Time Seen by Provider: 03/27/22 11:49 Source: patient and EMS Mode of arrival: EMS Limitations: no limitations History of Present Illness HPI Narrative: This is a 36 years old of female with history of opioid use disorder, cocaine use disorder alcohol use disorder presented to the emergency department via ambulance stating that she took 4 clonidine 0.1 mg about an hour ago and then she vomited. She states she has been really depressed she took the pills because of anxiety MD complaint: feels depressed and alcohol abuse Onset (ago): hour(s) Duration: constant History of same: Yes Relieving factors: none Exacerbating factors: none Associated psychiatric symptoms: none Treatments prior to arrival: none Related Data Home Medications Medication Instructions Recorded Confirmed cyclobenzaprine 10 mg tablet 1 tab PO BID PRN 12/24/21 03/16/22 docusate sodium 100 mg capsule 1 cap PO BID PRN 12/24/21 03/16/22 Previous Rx's Medication Instructions Recorded clonidine HCl 0.1 mg tablet 0.1 mg PO TID #45 tab 03/14/22 methadone 10 mg/mL oral 105 mg (10.5 mL) PO DAILY #0 ml 03/14/22 concentrate (Methadose) multivitamin (Daily-Ketan) 1 tab PO DAILY #30 tab 03/14/22 thiamine mononitrate (vit B1) 100 100 mg PO DAILY #30 tab 03/14/22 mg tablet doxepin 25 mg capsule 75 mg PO BEDTIME #0 cap 03/21/22 topiramate 25 mg tablet 50 mg PO BEDTIME #30 tab 03/21/22 trazodone 100 mg tablet 100 mg PO BEDTIME PRN #30 tab 03/21/22 Allergies Allergy/AdvReac Type Severity Reaction Status Date / Time codeine [CODEINE] Allergy Intermediate RASH Verified 03/15/22 14:25 quetiapine [From SEROQUEL] Allergy Intermediate RESTLESS Verified 03/15/22 14:25 LEG SYNDROME Review of Systems Review of Systems: Yes all other systems are reviewed and are negative Constitutional: Constitutional: Reports no additional constitutional complaints Eyes: Eyes: Reports no additional eye complaints ENT: Reports system reviewed and no additional complaints, except as documented Cardiovascular: Cardiovascular: Reports no additional cardiovascular complaints Musculoskeletal: Musculoskeletal: Reports no additional musculoskeletal complaints Psychiatric: Psychiatric: Reports as per HPI, Reports anxiety, Reports depression and Reports difficulty concentrating PMFSH Past Medical History Medical History Alcohol use disorder, moderate, dependence Asthma Bipolar disorder with psychotic features Hepatitis C Opioid use disorder PTSD (post-traumatic stress disorder) Stimulant use disorder Substance abuse Surgical History H/O: hysterectomy Social History Social History Household Members: Spouse Household Members Other:: 's drug dealer Housing: Apartment Do you presently have visiting nurse or other home services: No Alcohol intake: current Patient Tobacco Use Status: Current everyday Tobacco user Tobacco use type: Cigarette Cigarette Packs Per Day: 2 Cigarettes Per Day: 40.0 Years Smoked: 30 years e-Cigarette/Vaping Use: Never Used Second Hand Smoke Exposure: Yes Substance Use Type: Crack/Cocaine and Heroin Advance Directives: No Advance Directives Information Provided: No service: No Sexual orientation: Straight/Heterosexual Physical Exam Vital Signs: Vital Signs: Last Vital Signs Temp 98.3 F 03/27/22 11:48 Pulse 110 H 03/27/22 11:48 Resp 20 03/27/22 11:48 BP 150/91 H 03/27/22 11:48 Pulse Ox 98 03/27/22 11:48 BMI result Body Mass Index 24.7 Const: General: cooperative and anxious Nutritional Appearance: average body habitus and well nourished Orientation/consciousness: patient oriented x3 HEENT: Head: Yes normal to inspection Ears: hearing grossly normal bilaterally General nose exam: Normal external nose present Face and sinus: Yes normal facial exam Mouth: Normal oral and palatal mucosa present Throat: Yes posterior oropharynx normal Neck: Neck: Yes normal visual inspection, Yes full ROM and Yes no lymphadenopathy Chest: Chest palpation & inspection: normal inspection of the chest and normal palpation of entire chest wall Resp: Effort & Inspection: normal respiratory effort Auscultation: clear to auscultation bilaterally Cardio: Jugular venous distension: no JVD Rate: regular rate Rhythm: regular rhythm GI: Inspection: Yes normal to inspection Palpation (GI): Soft to palpation, not firm, nontender and no guarding Skin: General skin exam: no rashes or lesions noted Rashes: no rashes Neuro: General: patient oriented x3 Course Reevaluation(s) Reevaluation #1: Stable clinically ,we are waiting crisis eval,case will be signed off to Dr Epps MDM - Psych MDM Narrative Medical decision making narrative: 36 years old the female presented the opted to go for tablets of 0.1 clonidine, she is aware were actually hypertensive and tachycardic which I would not expect the with the clonidine overdose. Were going to get blood work consult Psychiatric Service Lab Data Result diagrams: 03/27/22 11:58 03/27/22 11:57 Labs: Lab Results 03/27/22 03/27/22 03/27/22 Range/Units 11:57 11:57 11:57 WBC (4.8-10.8) X10*3/uL RBC (4.20-5.50) X10*6/uL Hgb (12.0-16.0) g/dl Hct (37.0-47.0) % MCV (80.0-98.0) fL MCH (27.0-33.0) pg MCHC (31.0-35.0) g/dl RDW (11.0-16.0) % Plt Count (160-400) X10*3/uL MPV (9.4-12.3) fL Immature Gran % (Auto) Neut % (Auto) Lymph % (Auto) [place] % (Auto) Eos % (Auto) Baso % (Auto) Lymph # (Auto) [place] # (Auto) Eos # (Auto) Baso # (Auto) Abs Immat Gran (auto) Absolute Neuts (auto) Absolute Nucleated RBC (0.0-0.012) X10*3/uL Nucleated RBC % (auto) (0.0-0.2) /100WBC Neutrophils % (Manual) (45-73) % Band Neutrophils % (3-5) % Lymphocytes % (Manual) (20-40) % Basophils % (Manual) (0-2) % Abs Neuts (Manual) (2.0-8.3) X10*3/uL Lymphocytes # (Manual) (1.2-4.9) X10*3/uL Basophils # (Manual) (0.0-0.2) X10*3/uL Toxic Vacuolation Platelet Estimate (NORMAL) Plt Morphology Comment RBC Morphology Sodium 136 (135-145) mmol/L Potassium 3.1 L D (3.3-5.1) mmol/L Chloride 99 (96-108) mmol/L Carbon Dioxide 28 (22-29) mmol/L Anion Gap 12 (12-20) BUN 20 H (9-16) mg/dL Creatinine 0.82 (0.5-1.4) mg/dL Estim Creat Clear Calc 83.5 Estimated GFR > 60 Random Glucose 97 (60-115) mg/dL Calcium 9.2 (8.4-10.2) mg/dL Total Bilirubin 1.7 H (0.0-1.0) mg/dL AST 70 H (5-31) U/L ALT 98 H (0-31) U/L Alkaline Phosphatase 93 D (39-117) U/L Total Protein 8.0 (6.5-8.0) g/dL Albumin 4.0 (3.5-5.0) g/dL Beta HCG, Quant < 2 mIU/mL Salicylates < 5.0 L (15-30) mg/dL Acetaminophen < 1 (<30) mcg/mL Ethyl Alcohol < 10 mg/dL COVID-19 (CHARLY) (Negative) COVID-19 Clin Com 03/27/22 03/27/22 Range/Units 11:58 13:06 WBC 11.4 H (4.8-10.8) X10*3/uL RBC 4.88 (4.20-5.50) X10*6/uL Hgb 13.5 (12.0-16.0) g/dl Hct 40.5 (37.0-47.0) % MCV 83.0 (80.0-98.0) fL MCH 27.7 (27.0-33.0) pg MCHC 33.3 (31.0-35.0) g/dl RDW 12.7 (11.0-16.0) % Plt Count 195 (160-400) X10*3/uL MPV 9.1 L (9.4-12.3) fL Immature Gran % (Auto) Cancelled Neut % (Auto) Cancelled Lymph % (Auto) Cancelled [place] % (Auto) Cancelled Eos % (Auto) Cancelled Baso % (Auto) Cancelled Lymph # (Auto) Cancelled [place] # (Auto) Cancelled Eos # (Auto) Cancelled Baso # (Auto) Cancelled Abs Immat Gran (auto) Cancelled Absolute Neuts (auto) Cancelled Absolute Nucleated RBC 0.000 (0.0-0.012) X10*3/uL Nucleated RBC % (auto) 0.0 (0.0-0.2) /100WBC Neutrophils % (Manual) 72 (45-73) % Band Neutrophils % 25 H (3-5) % Lymphocytes % (Manual) 2 L (20-40) % Basophils % (Manual) 1 (0-2) % Abs Neuts (Manual) 11.1 H (2.0-8.3) X10*3/uL Lymphocytes # (Manual) 0.2 L (1.2-4.9) X10*3/uL Basophils # (Manual) 0.1 (0.0-0.2) X10*3/uL Toxic Vacuolation PRESENT Platelet Estimate NORMAL (NORMAL) Plt Morphology Comment NORMAL RBC Morphology NORMAL Sodium (135-145) mmol/L Potassium (3.3-5.1) mmol/L Chloride (96-108) mmol/L Carbon Dioxide (22-29) mmol/L Anion Gap (12-20) BUN (9-16) mg/dL Creatinine (0.5-1.4) mg/dL Estim Creat Clear Calc Estimated GFR Random Glucose (60-115) mg/dL Calcium (8.4-10.2) mg/dL Total Bilirubin (0.0-1.0) mg/dL AST (5-31) U/L ALT (0-31) U/L Alkaline Phosphatase (39-117) U/L Total Protein (6.5-8.0) g/dL Albumin (3.5-5.0) g/dL Beta HCG, Quant mIU/mL Salicylates (15-30) mg/dL Acetaminophen (<30) mcg/mL Ethyl Alcohol mg/dL COVID-19 (CHARLY) Negative (Negative) COVID-19 Clin Com See Note ECG Data Attestation: I personally reviewed and interpreted this ECG as follows: ECG interpretation time: 12:00 Pacemaker model: Normal sinus rhythm rate is [address]-T changes Discharge Plan Discharge Clinical Impression: Depression, Clonidine overdose Prescriptions: No Action cyclobenzaprine 10 mg tablet 1 tab PO BID PRN (Reason: muscle spasm) 0RF docusate sodium 100 mg capsule 1 cap PO BID PRN (Reason: Constipation) 0RF doxepin 25 mg Capsule 75 mg PO BEDTIME Qty: 0 0RF topiramate 25 mg Tablet 50 mg PO BEDTIME Qty: 30 0RF trazodone 100 mg Tablet 100 mg PO BEDTIME PRN (Reason: Insomnia) Qty: 30 0RF clonidine HCl 0.1 mg Tablet 0.1 mg PO TID Qty: 45 0RF Protocol: Hold for SBP< HOLD for SBP < : 90 methadone [Methadose] 10 mg/mL Concentrate 105 mg PO DAILY Qty: 0 0RF thiamine mononitrate (vit B1) 100 mg Tablet 100 mg PO DAILY Qty: 30 0RF multivitamin [Daily-Ketan] Tablet 1 tab PO DAILY Qty: 30 0RF
[2022-03-27 12:03] LABS: Hematocrit 40.5 % (37.0-47.0); Mean Corpuscular HGB Conc 33.3 g/dl (31.0-35.0); Mean Corpuscular Hemoglobin 27.7 pg (27.0-33.0); Mean Platelet Volume 9.1 fL (9.4-12.3); Platelet Count 195 X10*3/uL (160-400); Red Blood Count 4.88 X10*6/uL (4.20-5.50); Red Cell Distribution Width 12.7 % (11.0-16.0); White Blood Count 11.4 X10*3/uL (4.8-10.8)
[2022-03-27 12:05] LABS: Hemoglobin 13.5 g/dl (12.0-16.0)
--- NOTE | 2022-03-27 12:07 | PC.NURSE ---
pt states that she was so anxious that she took 4 of her clonidine at home. Pt denies SI And HI at this time. denies chest pain and sob. NSR on the monitor. pt admits to using heroin and cocaine.
[2022-03-27 12:23] LABS: Band Neutrophils Percent 25 % (3-5); Basophils Abs Manual 0.1 X10*3/uL (0.0-0.2); Basophils Percent Manual 1 % (0-2); Lymphocytes Absolute Manual 0.2 X10*3/uL (1.2-4.9); Lymphocytes Percent Manual 2 % (20-40); Neutrophils Absolute Manual 11.1 X10*3/uL (2.0-8.3); Neutrophils Percent Manual 72 % (45-73)
[2022-03-27 12:23] LABS: Ethanol < 10 mg/dL
[2022-03-27 12:25] LABS: Platelet Estimate NORMAL (NORMAL); Platelet Morphology Comment NORMAL; RBC Morphology NORMAL; Toxic Vacuolation PRESENT
[2022-03-27 12:26] LABS: Acetaminophen LAB < 1 mcg/mL (<30); Alanine Aminotransferase 98 U/L (0-31); Alkaline Phosphatase 93 U/L (39-117); Anion Gap 12 (12-20); Aspartate Amino Transferase 70 U/L (5-31); Bilirubin Total 1.7 mg/dL (0.0-1.0); Blood Urea Nitrogen 20 mg/dL (9-16); Calcium 9.2 mg/dL (8.4-10.2); Carbon Dioxide 28 mmol/L (22-29); Chloride 99 mmol/L (96-108); Creatinine Clr Calc Pharmacy 83.5; Estimated Glomerular Filt Rate > 60; Glucose Random 97 mg/dL (60-115); Potassium 3.1 mmol/L (3.3-5.1); Sodium 136 mmol/L (135-145)
[2022-03-27 12:27] LABS: Salicylate < 5.0 mg/dL (15-30)
[2022-03-27 12:32] LABS: HCG Quantitative < 2 mIU/mL
[2022-03-27 13:33] LABS: COVID-19 Test Negative (Negative)
[2022-03-27] MEDS: Potassium Chloride ER 20 MEQ TAB.ER.PRT PO (14:22)
[2022-03-27 17:04] VITALS: BP 107/66; PULSE 82; RESP 16; TEMP 37.2; O2SAT 98
[2022-03-27] MEDS: LORazepam 1 MG TABLET PO (18:08)
--- NOTE | 2022-03-27 19:30 | MHC.CARE ---
[facility] unable to send a clinician to assess pt. CARE team will meet with pt in lieu of N. This staff writer met with pt in the pod room 3. Pt was audibly crying when this staff writer entered the room. She was laying on her back and curled up in the blankets. She reported that everything is bad and that she's been feeling very anxious and depressed. This morning she wanted to make the anxiety stop and she took 4 tablets of 0.1mg clonidine in an attempt to calm herself down. She reported that she isn't sure if she also took some benadryl. She denied that this was a suicide attempt or a means of self harm, and denied having any thoughts or feelings of such since prior to her recent in psychiatric admission, having discharged on 03/21/2022. She shared that she never picked up her medications after she left the hospital and that she quickly resumed opiate and cocaine use. She reported that he sleep and appetite have been poor and that she has been spending most of her time using with her . This staff writer and the pt had a discussion about what would be the most helpful for her and she expressed that she needs to get into recovery before she will be able to manage her symptoms of anxiety and depression. Opiates: Daily use, heroin and fentanyl, specific amount unknown Cocaine: Daily use, amount unknown Alcohol: 1 pint of vodka, semi daily use Methadone maintenance at [facility] - 105mg on 03/09/22 Pt has been connected with the volleyball coach in the ED. Per volleyball coach- pt is interested in an EATS placement. No beds are available tonight, bedsearch will resume in the morning.
--- NOTE | 2022-03-27 19:58 | MHC.RECOVSUP ---
? Reason for consult Recovery support o Current location: o Identified substance use concern: heroin - Support ? Intervention: <del>o</del> <del>ATS</del> <del>bed</del> <del>search</del> <del>started/completed/in</del> <del>process</del> <del>o</del> <del>MAT</del> <del>started</del> <del>or</del> <del>to</del> <del>be</del> <del>started</del> o Community resources provided o Harm reduction discussion ? Plan: <del>o</del> <del>Referral</del> <del>to</del> <del>[facility]</del> <del>o</del> <del>Bed</del> <del>search</del> <del>in</del> <del>progress</del> <del>to</del> <del>o</del> <del>Follow</del> <del>up</del> <del>tomorrow</del> <del>o</del> <del>Patient</del> <del>awaiting</del> <del>crisis</del> <del>evaluation</del> o Patient to follow up with [facility] after discharge ? Additional information: Met with Patient.. We talk about Harm reduction and [facility].. Patient stated that e bed would be best for them, so that they could get clean and get there meds right..
[2022-03-27 21:21] LABS: Amphetamine Screen Urine Not Detected (Not Detect); Barbiturates, Urine Not Detected (Not Detect); Benzodiazepines Screen Urine Not Detected (Not Detect); Cannabinoid Screen Urine Not Detected (Not Detect); Cocaine Screen Urine POSITIVE (Not Detect); Fentanyl, urine POSITIVE (Not Detect); Opiate Screen Urine Not Detected (Not Detect); Phencyclidine Screen Urine Not Detected (Not Detect)
[2022-03-27 23:03] VITALS: BP 141/83; PULSE 112; RESP 18; O2SAT 99
--- NOTE | 2022-03-27 23:35 | MHC.CARE ---
Pt requesting to discharge home and follow up with [facility] in the morning for support getting into detox. There are no safety concerns and no further assessment needed at this time.
== END 2022-03-27 23:45 | disposition home or self-care (01) ==
PROVIDERS: Emergency Provider Emergency Medicine
DX: F33.1 Major depressive disorder, recurrent, moderate (principal); T46.5X1A Poisoning by other antihypertensive drugs, accidental (unintentional), initial encounter; F11.10 Opioid abuse, uncomplicated; F14.10 Cocaine abuse, uncomplicated; F10.10 Alcohol abuse, uncomplicated; Y90.9 Presence of alcohol in blood, level not specified; F17.210 Nicotine dependence, cigarettes, uncomplicated; Y92.9 Unspecified place or not applicable; Z20.822 Contact with and (suspected) exposure to COVID-19; Z71.6 Tobacco abuse counseling; Z79.899 Other long term (current) drug therapy
CPT/HCPCS: 36415; 80053; 80143; 80179; 80307; 82077; 84702; 85007; 85027; 87635; 93005; 99285

== ENCOUNTER 2022-04-19 20:58 | Emergency (ER) | payer OTHER, SELFPAY ==
[2022-04-19 21:21] VITALS: BP 158/88; PULSE 115; RESP 18; TEMP 37; O2SAT 96; BMI 26.5
--- NOTE | 2022-04-19 21:23 | ED.GENADULT ---
HPI - General Adult General Chief complaint: Anxiety Stated complaint: anxiety Time Seen by Provider: 04/19/22 21:22 Source: patient History of Present Illness HPI narrative: This is a 36-year-old female with history of substance abuse, admits regular cocaine and heroin use, states she last used both today. The patient states she was feeling anxious but feels somewhat better now. She does feel nauseated. She is somewhat vague and appears suggestible. She states she would like to pursue treatment for her drug problem, but does not want detox. She does admit to depression anxiety, denies any suicidal ideation, denies hearing voices. She denies any chest pain, abdominal pain, headache. She does inject heroin and notes that she has also numerous scattered skin lesions from mites Related Data Home Medications Medication Instructions Recorded Confirmed docusate sodium 100 mg capsule 1 cap PO BID PRN 12/24/21 03/27/22 Previous Rx's Medication Instructions Recorded clonidine HCl 0.1 mg tablet 0.1 mg PO TID #45 tab 03/14/22 methadone 10 mg/mL oral 105 mg (10.5 mL) PO DAILY #0 ml 03/14/22 concentrate (Methadose) multivitamin (Daily-Ketan) 1 tab PO DAILY #30 tab 03/14/22 thiamine mononitrate (vit B1) 100 100 mg PO DAILY #30 tab 03/14/22 mg tablet doxepin 25 mg capsule 75 mg PO BEDTIME #0 cap 03/21/22 topiramate 25 mg tablet 50 mg PO BEDTIME #30 tab 03/21/22 trazodone 100 mg tablet 100 mg PO BEDTIME PRN #30 tab 03/21/22 Allergies Allergy/AdvReac Type Severity Reaction Status Date / Time codeine [CODEINE] Allergy Intermediate RASH Verified 03/15/22 14:25 quetiapine [From SEROQUEL] Allergy Intermediate RESTLESS Verified 03/15/22 14:25 LEG SYNDROME Review of Systems Review of Systems: Yes all other systems are reviewed and are negative PMFSH Past Medical History Medical History Alcohol use disorder, moderate, dependence Asthma Bipolar disorder with psychotic features Hepatitis C Opioid use disorder PTSD (post-traumatic stress disorder) Stimulant use disorder Substance abuse Surgical History H/O: hysterectomy Social History Social History Household Members: Spouse Household Members Other:: 's drug dealer Housing: Apartment Do you presently have visiting nurse or other home services: No Alcohol intake: current Patient Tobacco Use Status: Current everyday Tobacco user Tobacco use type: Cigarette Cigarette Packs Per Day: 2 Cigarettes Per Day: 40.0 Years Smoked: 30 years e-Cigarette/Vaping Use: Never Used Second Hand Smoke Exposure: Yes Substance Use Type: Crack/Cocaine and Heroin Advance Directives: No Advance Directives Information Provided: No service: No Sexual orientation: Straight/Heterosexual Physical Exam ED Vital Signs: Vital Signs - 24 hr 04/19/22 21:21 Temperature 98.6 F Pulse Rate 115 H Respiratory Rate 18 Blood Pressure 158/88 H Pulse Oximetry 96 BMI result Body Mass Index 26.5 Const General: no acute distress Orientation/consciousness: patient oriented x3 HENMT Head: Yes normal to inspection General nose exam: Normal external nose present Mouth: moist mucous membranes Throat: Yes posterior oropharynx normal, Yes tonsils normal and Yes uvula midline Eyes Eyelids: Yes eyelids normal Conjunctivae: conjunctivae normal Pupils: Equal, round and reactive pupils present Neck Neck: Yes supple Resp Effort & Inspection: normal respiratory effort Auscultation: clear to auscultation bilaterally Cardio Rate: regular rate Rhythm: regular rhythm Heart sounds: S1 normal heart sound present, S2 normal heart sound present, no gallops, no murmurs and no rubs GI Inspection: No distended Palpation (GI): Soft to palpation and nontender Auscultation: normal bowel sounds Skin Other: Skin of extremities with numerous papular erythematous lesions of the 1 cm in diameter, without pustules. No abscesses or cellulitis General skin exam: other (Warm and dry) Neuro General: patient oriented x3 and CN's II-XI intact bilaterally Cranial nerves: Yes Equal, round and reactive pupils present Extrem General: Yes no pedal edema Psych Affect: normal affect Attitude: cooperative Medical Decision Making MDM Narrative Medical decision making narrative: Patient was here for anxiety but by the time I saw are stated she felt better, complained of mild nausea but was drinking inch and drill. Patient has history of chronic substance abuse. Patient can Pursue Detox As An Outpatient Discharge Plan Discharge Clinical Impression: Opioid use disorder, Cocaine use disorder, severe, dependence Patient Disposition: Home, Self-Care Instructions: Cocaine Abuse (ED), Opioid Use Disorder (ED) Additional Instructions: Follow-up with primary care physician. Seek treatment at a detox facility as an outpatient. Return for any new or worsened symptoms such as wanting to hurt herself or feeling unsafe. Prescriptions: No Action docusate sodium 100 mg capsule 1 cap PO BID PRN (Reason: Constipation) 0RF doxepin 25 mg Capsule 75 mg PO BEDTIME Qty: 0 0RF topiramate 25 mg Tablet 50 mg PO BEDTIME Qty: 30 0RF trazodone 100 mg Tablet 100 mg PO BEDTIME PRN (Reason: Insomnia) Qty: 30 0RF clonidine HCl 0.1 mg Tablet 0.1 mg PO TID Qty: 45 0RF Protocol: Hold for SBP< HOLD for SBP < : 90 methadone [Methadose] 10 mg/mL Concentrate 105 mg PO DAILY Qty: 0 0RF thiamine mononitrate (vit B1) 100 mg Tablet 100 mg PO DAILY Qty: 30 0RF multivitamin [Daily-Ketan] Tablet 1 tab PO DAILY Qty: 30 0RF Interventions: ED Discharge Assessment Last Done: 04/19/22 22:59 Discharge Date/Time: 04/19/22 23:00
[2022-04-19] MEDS: Ondansetron ODT 4 MG TAB.RAPDIS TRANSLINGU (22:12)
[2022-04-19] MEDS: LORazepam 1 MG TABLET PO (22:12)
--- NOTE | 2022-04-19 22:15 | PC.NURSE ---
pt medicated per Jan. Reported to RN, Ed. pt given a warm blanket.
== END 2022-04-19 23:00 | disposition home or self-care (01) ==
PROVIDERS: Emergency Provider Emergency Medicine; PCP Family Medicine
DX: F14.20 Cocaine dependence, uncomplicated (principal); F11.29 Opioid dependence with unspecified opioid-induced disorder; F41.9 Anxiety disorder, unspecified; F31.81 Bipolar II disorder; F19.10 Other psychoactive substance abuse, uncomplicated; F17.200 Nicotine dependence, unspecified, uncomplicated; F43.10 Post-traumatic stress disorder, unspecified; Z79.899 Other long term (current) drug therapy
CPT/HCPCS: 99283

== ENCOUNTER 2024-08-02 15:33 | Emergency (ER) | payer OTHER, SELFPAY ==
--- NOTE | ~2024-08-02 | CT_ITS ---
EXAM: CT HEAD WITHOUT CONTRAST CT CERVICAL SPINE INDICATION: fall, trauma, headache TECHNIQUE: A noncontrast CT scan was performed from the skull base to the vertex. A noncontrast CT scan of the cervical spine was performed from the base of the skull through T1 at 2.5 mm and 0.625 mm collimation. Coronal and sagittal reformats were obtained at the acquisition workstation. This CT examination was performed using dose optimization techniques as appropriate, variously including the following: * Automated exposure control * Adjustment of mA and/or kV according to patient size (this includes techniques or standardized protocols for targeted exams where dose is matched to indication/reason for exam; i.e. extremities or head) * Use of iterative reconstruction technique Dose length product is 1502 mGy-cm. COMPARISON: CT head 03/08/2022 FINDINGS: Head: There is no evidence of acute intracranial hemorrhage or edematous territorial infarction. No abnormal mass effect or midline shift is seen. Sage to white matter differentiation is well preserved. No extra-axial fluid collections are identified. The ventricles are normal in size. No abnormal attenuation in the brain parenchyma. No acute calvarial fracture.. Paranasal sinuses and mastoid air cells are well-aerated. Cervical Spine: The atlantooccipital and atlantoaxial articulations is maintained. Straightening of the normal cervical lordosis. Otherwise, there is anatomic alignment of the vertebral bodies and posterior elements.There is a small corticated chronic appearing ossification inferior to the anterior arch of C1. No evidence of acute fracture or subluxation. Vertebral body heights are maintained.. The disc spaces are preserved. The bony canal is maintained.. No prevertebral soft tissue swelling. No suspicious thyroid findings. The visualized lung apices are clear. CT/CT cervical spine wo IV con IMPRESSION: No CT evidence of acute intracranial hemorrhage or to metastatic or infarction. No CT evidence of acute cervical spine fracture or malalignment. Additional findings and details as above. Electronically signed by: Gualberto Garces MD 08/02/2024 06:37 PM EDT
[2024-08-02 15:42] VITALS: BP 131/78; BP 147/84; PULSE 88; PULSE 90; RESP 16; TEMP 37; O2SAT 86; O2SAT 96; BMI 42.5
--- NOTE | 2024-08-02 16:04 | ED.GENADULT ---
HPI - General Adult General Chief complaint: Fall Stated complaint: Fall w/ HS, LOC, neck/back pain at surgical site Time Seen by Provider: 08/02/24 16:03 Source: patient and RN notes reviewed Limitations: altered mental status History of Present Illness HPI narrative: 38-year-old female who has a history of bipolar disorder, PTSD, polysubstance use, presents via EMS for evaluation of episode of witnessed syncope. According to the patient, she is at the [facility] where she is in for treatment for 90 days. Patient states he was walking in the hallway, to get a piece of cake when she began to feel lightheaded, and the next thing she recalls is falling forward. Patient states she struck the right side of her head on a table. She believes she passed out for a brief period of time because the next thing she remembers is people around her. She is currently complaining of pain to the right side of her head and neck. She denies any vision changes. No chest pain or shortness of breath. She denies any paresthesia or paralysis. Patient reports having a similar episode several days ago and was seen at [facility]. She denies any abdominal pain. No back pain. She denies any alcohol use. No illicit drug use. She smokes tobacco. Patient is currently on methadone, with her dose decreased to 105 mg. Patient also recently started benztropine. Related Data Home Medications ?Medication ?Instructions ?Recorded ?Confirmed docusate sodium 100 mg capsule 1 cap PO BID PRN Constipation 12/24/21 03/27/22 Previous Rx's ?Medication ?Instructions ?Recorded clonidine HCl 0.1 mg tablet 0.1 mg PO TID #45 tabs 03/14/22 methadone 10 mg/mL oral 105 mg (10.5 mL) PO DAILY #0 mL 03/14/22 concentrate (Methadose) multivitamin (Daily-Ketan tablet) 1 tab PO DAILY #30 tabs 03/14/22 thiamine mononitrate (vit B1) 100 100 mg PO DAILY #30 tabs 03/14/22 mg tablet doxepin 25 mg capsule 75 mg (3 x 25 mg) PO BEDTIME #0 03/21/22 caps topiramate 25 mg tablet 50 mg (2 x 25 mg) PO BEDTIME #30 03/21/22 tabs trazodone 100 mg tablet 100 mg PO BEDTIME PRN Insomnia #30 03/21/22 tabs Allergies Allergy/AdvReac Type Severity Reaction Status Date / Time No Known Allergies Allergy Verified 08/02/24 15:51 Review of Systems Constitutional: Constitutional: Reports daytime sleepiness Cardiovascular: Cardiovascular: Denies chest pain Respiratory: Respiratory: Denies no additional respiratory complaints [facility] Past Medical History Medical History Alcohol use disorder, moderate, dependence Stimulant use disorder Opioid use disorder PTSD (post-traumatic stress disorder) Bipolar disorder with psychotic features Substance abuse Asthma Hepatitis C Surgical History H/O: hysterectomy Social History Social History Household Members: Spouse Household Members Other:: 's drug dealer Housing: Apartment Do you presently have visiting nurse or other home services: No Unable to assess alcohol history related to: Unable to respond, Unknown and Refusing to respond Alcohol intake: current Patient Tobacco Use Status: Current everyday Tobacco user Tobacco use type: Cigarette Cigarette Packs Per Day: 2 Cigarettes Per Day: 40.0 Years Smoked: 30 years Smoked in Last 30 Days: Yes e-Cigarette/Vaping Use: Never Used Second Hand Smoke Exposure: Yes Substance Use Type: Crack/Cocaine and Heroin Advance Directives: No Advance Directives Information Provided: No Patient : No service: No Sexual orientation: Straight/Heterosexual Physical Exam ED Vital Signs: Vital Signs - 24 hr 08/02/24 15:42 08/02/24 16:27 08/02/24 19:35 Temperature 98.6 F 99.0 F 98.3 F Pulse Rate 88 85 85 Respiratory Rate 16 16 16 Blood Pressure 147/84 H 118/65 112/65 Pulse Oximetry 86 L 94 100 Oxygen Delivery Method Room Air Nasal Cannula Nasal Cannula Oxygen Flow Rate 4 4 08/02/24 23:57 08/03/24 00:04 Temperature 97.2 F 97.2 F Pulse Rate 87 87 Respiratory Rate 18 18 Blood Pressure 131/76 131/76 Pulse Oximetry 97 97 Oxygen Delivery Method Room Air Room Air Oxygen Flow Rate BMI result Body Mass Index 42.5 Const General: lethargic Orientation/consciousness: lethargic Resp Auscultation: clear to auscultation bilaterally Cardio Rate: regular rate Rhythm: regular rhythm Extrem Other: No calf tenderness or pedal edema bilaterally Course Reevaluation(s) Reevaluation #1: [facility], confirming inpatient admission, discharged on August 01. Patient at 90 day substance abuse program. Patient was admitted for encephalopathy likely due to polypharmacy and polysubstance use. Patient's urine tox positive for methadone, fentanyl and cocaine. Patient adamantly denies using any of these substances. Which are otherwise unremarkable. She will continue to be observed Patient has been observed for several hours while in the emergency department. She is resting comfortably at this time is awake and alert. She speaks full clear sentences. She adamantly denies taking any illicit substances. She is requesting discharge back to her substance abuse treatment Center, [facility]. Consideration for admission but the patient is refusing this since she is at a substance use facility. She is ambulatory without difficulty. She is maintaining her airway and there is no hypoxia. She feels comfortable with discharge plan home. No further questions at this time. A staff member will be picking her up. Medications Administered Discontinued Medications Generic Name Dose Route Start Last Admin Trade Name Freq PRN Reason Stop Dose Admin Sodium Chloride 1,000 mls @ 999 mls/hr 08/02/24 16:15 08/02/24 18:19 Ns IV 08/02/24 17:15 999 mls/hr .Q1H1M CHICO Administration Procedures Procedure Narrative Procedure Narrative: August 02, 2024, 5:40 p.m. Ultrasound-guided peripheral IV Indication, nursing unable to obtain, patient requiring IV fluids and labs. 20 gauge, 2-1/2 inch, right brachial. RN notified, secured and flushed. Medical Decision Making Medical Decision Making MDM Narrative: 38-year-old female with history of bipolar disorder, polysubstance use, currently on methadone, presents for an episode of syncope. Currently the patient is resting comfortably in the exam stretcher. She is awake to voice but will fall asleep easily. She adamantly denies any illicit drug use. Check head and cervical spine CT. Labs, UA, U tox. EKG Differential Diagnosis Differential Diagnoses: The differential diagnosis associated with the presentation includes Toxic ingestion Polysubstance use Hypoxia Hypercapnia Admission/Observation Consideration of admission/observation: Escalation of care including admission/observation considered Lab Data MDM Lab Attestation statement: I reviewed the patient's lab results. 08/02/24 17:47 08/02/24 17:47 Labs: Lab Results 08/02/24 08/02/24 Range/Units 17:47 18:05 WBC 3.4 L (4.8-10.8) X10*3/uL RBC 4.87 (4.20-5.50) X10*6/uL Hgb 12.9 (12.0-16.0) g/dl Hct 40.4 (37.0-47.0) % MCV 83.0 (80.0-98.0) fL MCH 26.5 L (27.0-33.0) pg MCHC 31.9 (31.0-35.0) g/dl RDW 13.2 (11.0-16.0) % Plt Count 174 (160-400) X10*3/uL MPV 9.9 (9.4-12.3) fL Immature Gran % (Auto) 0.3 (0.0-0.4) % Neut % (Auto) 71.5 (45-73) % Lymph % (Auto) 12.8 L (20-40) % [place] % (Auto) 11.0 (2-11) % Eos % (Auto) 3.5 (0-4) % Baso % (Auto) 0.9 (0-2) % Lymph # (Auto) 0.4 L (1.2-4.9) X10*3/uL [place] # (Auto) 0.4 (0.1-1.2) X10*3/uL Eos # (Auto) 0.1 (0.0-0.4) X10*3/uL Baso # (Auto) 0.0 (0.0-0.2) X10*3/uL Abs Immat Gran (auto) 0.01 (0.00-0.03) X10*3/uL Absolute Neuts (auto) 2.5 (2.0-8.3) x10*3/uL Absolute Nucleated RBC 0.000 (0.0-0.012) X10*3/uL Nucleated RBC % (auto) 0.0 (0.0-0.2) /100WBC PT 12.2 (11.1-13.3) SEC INR 1.0 (0.9-1.1) Sodium 141 (135-145) mmol/L Potassium 3.8 (3.3-5.1) mmol/L Chloride 103 (96-108) mmol/L Carbon Dioxide 31 H (22-29) mmol/L Anion Gap 11 L (12-20) BUN 9 (9-16) mg/dL Creatinine 0.79 (0.5-1.4) mg/dL Estim Creat Clear Calc 112.0 Estimated GFR > 60 Random Glucose 87 (60-115) mg/dL Calcium 9.3 (8.4-10.2) mg/dL Total Bilirubin 0.3 (0.0-1.0) mg/dL AST 28 (5-31) U/L ALT 21 (0-31) U/L Alkaline Phosphatase 91 (39-117) U/L Total Protein 7.3 (6.5-8.0) g/dL Albumin 4.0 (3.5-5.0) g/dL Urine Color Yellow Urine Appearance Clear Urine pH 8.0 (5.0-9.0) Ur Specific [place] 1.015 (1.005-1.025) Urine Protein Negative (Neg-Trace) mg/dL Urine Glucose (UA) Negative (Negative) mg/dL Urine Ketones Negative (Negative) mg/dL Urine Blood Negative (Negative) Urine Nitrite Negative (Negative) Ur Leukocyte Esterase Negative (Negative) Urine Opiates Screen Not Detected (Not Detect) Ur Buprenorphine Scrn Not Detected (Not Detect) ng/mL Ur Oxycodone Screen Not Detected (Not Detect) ng/mL Urine Methadone Screen Positive H (Not Detect) ng/mL Urine Fentanyl Screen POSITIVE H (Not Detect) Ur Barbiturates Screen Not Detected (Not Detect) Ur Phencyclidine Scrn Not Detected (Not Detect) Ur Amphetamines Screen Not Detected (Not Detect) U Benzodiazepines Scrn Not Detected (Not Detect) [place] 0.87 (0.60-1.20) mmol/L Urine Cocaine Screen POSITIVE H (Not Detect) U Marijuana (THC) Screen Not Detected (Not Detect) Ethyl Alcohol < 10 mg/dL Independent Interpretation I performed an independent interpretation of an: EKG (EKGs 80 beats per minute without any acute ischemic changes.) Radiology Impression Discussion of test interpretation with radiology: I have reviewed the radiologist's reading. Radiologist Impression: [id number] [place] [address] CT Scan Report Signed Patient: Marylu Sosa MR#: [id number] : 1985 Acct:[id number] Age/Sex: 38 / F ADM Date: 08/02/24 Loc: HO.ED Attending Dr: Ordering Physician: Julio Luna Date of Service: 08/02/24 Procedure(s): CT cervical spine wo IV con Accession Number(s): [id number] cc: Marcie Farias DO; Julio Luna~ EXAM: CT HEAD WITHOUT CONTRAST CT CERVICAL SPINE INDICATION: fall, trauma, headache TECHNIQUE: A noncontrast CT scan was performed from the skull base to the vertex. A noncontrast CT scan of the cervical spine was performed from the base of the skull through T1 at 2.5 mm and 0.625 mm collimation. Coronal and sagittal reformats were obtained at the acquisition workstation. This CT examination was performed using dose optimization techniques as appropriate, variously including the following: * Automated exposure control * Adjustment of mA and/or kV according to patient size (this includes techniques or standardized protocols for targeted exams where dose is matched to indication/reason for exam; i.e. extremities or head) * Use of iterative reconstruction technique Dose length product is 1502 mGy-cm. COMPARISON: CT head 03/08/2022 FINDINGS: Head: There is no evidence of acute intracranial hemorrhage or edematous territorial infarction. No abnormal mass effect or midline shift is seen. Sage to white matter differentiation is well preserved. No extra-axial fluid collections are identified. The ventricles are normal in size. No abnormal attenuation in the brain parenchyma. No acute calvarial fracture.. Paranasal sinuses and mastoid air cells are well-aerated. Cervical Spine: The atlantooccipital and atlantoaxial articulations is maintained. Straightening of the normal cervical lordosis. Otherwise, there is anatomic alignment of the vertebral bodies and posterior elements.There is a small corticated chronic appearing ossification inferior to the anterior arch of C1. No evidence of acute fracture or subluxation. Vertebral body heights are maintained.. The disc spaces are preserved. The bony canal is maintained.. No prevertebral soft tissue swelling. No suspicious thyroid findings. The visualized lung apices are clear. CT/CT cervical spine wo IV con IMPRESSION: No CT evidence of acute intracranial hemorrhage or to metastatic or infarction. No CT evidence of acute cervical spine fracture or malalignment. Additional findings and details as above. Electronically signed by: Gualberto Garces MD 08/02/2024 06:37 PM EDT RP Dictated By: Gualberto Garces MD Signed By: <Electronically signed by Gualberto Garces MD in OV> 08/02/24 1837 DD/ 1649 TD/TT: 08/02/24 1736 [place] Supervisor: YUE External Record Review External record reviewed: Inpatient record and Outside ED record Discharge Plan Discharge Clinical Impression: Polysubstance abuse Patient Disposition: Xfer Other Transfer Details: [place] Instructions: Polysubstance Abuse (ED) Additional Instructions: Follow-up with your primary care provider. Call this week to schedule a follow-up appointment. Return to the emergency department if you have any worsening of symptoms, or any concerns. Get well soon! Prescriptions: No Action docusate sodium 100 mg capsule 1 cap PO BID PRN (Reason: Constipation) doxepin 25 mg Capsule 75 mg PO BEDTIME Qty: 0 0RF topiramate 25 mg Tablet 50 mg PO BEDTIME Qty: 30 0RF trazodone 100 mg Tablet 100 mg PO BEDTIME PRN (Reason: Insomnia) Qty: 30 0RF clonidine HCl 0.1 mg Tablet 0.1 mg PO TID Qty: 45 0RF Protocol: Hold for SBP< HOLD for SBP < : 90 methadone [Methadose] 10 mg/mL Concentrate 105 mg PO DAILY Qty: 0 0RF thiamine mononitrate (vit B1) 100 mg Tablet 100 mg PO DAILY Qty: 30 0RF multivitamin [Daily-Ketan] Tablet 1 tab PO DAILY Qty: 30 0RF Interventions: ED Discharge Assessment Last Done: 08/03/24 00:04 Discharge Date/Time: 08/02/24 23:55 Print Language: Brazilian
--- NOTE | 2024-08-02 16:13 | ECG_ITS ---
Test Reason : syncope Blood Pressure : / mmHG Vent. Rate : 080 BPM Atrial Rate : 080 BPM P-R Int : 164 ms QRS Dur : 082 ms QT Int : 398 ms P-R-T Axes : 059 078 057 degrees QTc Int : 459 ms Normal sinus rhythm Septal infarct , age undetermined Abnormal ECG When compared with ECG of 27-MAR-2022 11:49, QT has shortened Referred By: Julio Luna Electronically Signed By:NOLAN RIOJAS
[2024-08-02 16:27] VITALS: BP 118/65; PULSE 85; RESP 16; TEMP 37.2; O2SAT 94
--- NOTE | 2024-08-02 16:31 | PC.NURSE ---
per [facility] Magdalene: pt has had increased episodes of somnolence over the past two weeks with episodes of slurred speech and tremors. pt initially sent to [facility] and returned to [facility] w new rx for benztropine 2mg PO three times daily. after starting medication pt started having worsening memory problems not oriented to day or birthday. transferred back to [facility] and admitted for toxic encephalopathy at time of admission pt tox screen +ve for cocaine and fentanyl. pt d/c'd w order for O2 while sleeping unclear reason for O2 and amount. provider notified, [facility] contacted for collateral medical records.
[2024-08-02 17:54] LABS: MANUAL DIFF FLAG NO
[2024-08-02 18:00] LABS: Prothrombin Time 12.2 SEC (11.1-13.3)
[2024-08-02 18:14] LABS: Appearance Urine Clear; Color Urine Yellow; Glucose Urine UA Negative (Negative); Leukocyte Esterase Urine Negative (Negative); Nitrite Urine Negative (Negative); Specific Gravity - Urine 1.015 (1.005-1.025); Urine Blood Negative (Negative); Urine Ketones Negative (Negative); Urine Protein Negative (Neg-Trace)
[2024-08-02] MEDS: 0.9 % Sodium Chloride 1,000 ML 999 ML IV (18:19)
[2024-08-02 18:22] LABS: Lithium 0.87 mmol/L (0.60-1.20)
[2024-08-02 18:26] LABS: Alanine Aminotransferase 21 U/L (0-31); Alkaline Phosphatase 91 U/L (39-117); Anion Gap 11 (12-20); Aspartate Amino Transferase 28 U/L (5-31); Bilirubin Total 0.3 mg/dL (0.0-1.0); Blood Urea Nitrogen 9 mg/dL (9-16); Calcium 9.3 mg/dL (8.4-10.2); Carbon Dioxide 31 mmol/L (22-29); Chloride 103 mmol/L (96-108); Estimated Glomerular Filt Rate > 60; Ethanol < 10 mg/dL; Glucose Random 87 mg/dL (60-115); Potassium 3.8 mmol/L (3.3-5.1); Sodium 141 mmol/L (135-145); Total Protein 7.3 g/dL (6.5-8.0)
[2024-08-02 18:28] LABS: Amphetamine Screen Urine Not Detected (Not Detect); Barbiturates, Urine Not Detected (Not Detect); Benzodiazepines Screen Urine Not Detected (Not Detect); Buprenorphine Scr Not Detected (Not Detect); Cannabinoid Screen Urine Not Detected (Not Detect); Cocaine Screen Urine POSITIVE (Not Detect); Fentanyl, urine POSITIVE (Not Detect); Methadone Screen, Urine Positive (Not Detect); Opiate Screen Urine Not Detected (Not Detect); Oxycodone Screen Urine Not Detected (Not Detect); Phencyclidine Screen Urine Not Detected (Not Detect)
[2024-08-02 18:35] LABS: Basophils Percent Auto 0.9 % (0-2); Eosinophils Absolute Auto 0.1 X10*3/uL (0.0-0.4); Eosinophils Percent Auto 3.5 % (0-4); Hematocrit 40.4 % (37.0-47.0); Hemoglobin 12.9 g/dl (12.0-16.0); Imm Gran Abs Auto 0.01 X10*3/uL (0.00-0.03); Imm Gran Pct Auto 0.3 % (0.0-0.4); Lymphocytes Absolute Auto 0.4 X10*3/uL (1.2-4.9); Lymphocytes Percent Auto 12.8 % (20-40); Mean Corpuscular HGB Conc 31.9 g/dl (31.0-35.0); Mean Corpuscular Hemoglobin 26.5 pg (27.0-33.0); Mean Platelet Volume 9.9 fL (9.4-12.3); Monocytes Absolute Auto 0.4 X10*3/uL (0.1-1.2); Neutrophils Absolute Auto 2.5 x10*3/uL (2.0-8.3); Neutrophils Percent Auto 71.5 % (45-73); Platelet Count 174 X10*3/uL (160-400); Red Blood Count 4.87 X10*6/uL (4.20-5.50); Red Cell Distribution Width 13.2 % (11.0-16.0); White Blood Count 3.4 X10*3/uL (4.8-10.8)
[2024-08-02 19:35] VITALS: BP 112/65; PULSE 85; RESP 16; TEMP 36.8; O2SAT 100
--- NOTE | 2024-08-02 22:42 | PC.NURSE ---
PT keeps being reminded to straighten her arm, pt states she is trying her best, upon frequent checks on pt the arm is bent. IV line has positive blood return.
[2024-08-02 23:57] VITALS: BP 131/76; PULSE 87; RESP 18; TEMP 36.2; O2SAT 97
[2024-08-03 00:04] VITALS: BP 131/76; PULSE 87; RESP 18; TEMP 36.2; O2SAT 97
== END 2024-08-02 23:55 | disposition other institution (70) ==
PROVIDERS: Physician Assistant; Emergency Provider Emergency Medicine Emergency Medical Services; PCP Family Medicine
DX: F19.10 Other psychoactive substance abuse, uncomplicated (principal); R53.83 Other fatigue; F31.81 Bipolar II disorder; F14.20 Cocaine dependence, uncomplicated; F43.10 Post-traumatic stress disorder, unspecified; F10.20 Alcohol dependence, uncomplicated; B19.20 Unspecified viral hepatitis C without hepatic coma; J45.909 Unspecified asthma, uncomplicated; F11.20 Opioid dependence, uncomplicated; F17.210 Nicotine dependence, cigarettes, uncomplicated; Z79.899 Other long term (current) drug therapy
CPT/HCPCS: 36415; 70450; 72125; 80053; 80178; 80307; 81003; 85025; 85610; 93005; 99285